=== PATIENT | female | born 1950 | race Caucasian/White ===

== ENCOUNTER 2018-10-11 12:08 | Inpatient (IN) | payer MEDICARE, BC ==
[2018-10-11] MEDS ORDERED: Ondansetron 4 MG/2 ML SDV IVPUSH ONE (12:19)
--- NOTE | 2018-10-11 12:21 | EDM.PDOC ---
ED HPI GENERAL MEDICAL PROBLEM - General Chief Complaint: Syncope Stated Complaint: [facility] Time Seen by Provider: 10/11/18 12:10 Source of Information: Reports: Patient History Limitations: Reports: No Limitations - History of Present Illness INITIAL COMMENTS - FREE TEXT/NARRATIVE: 68-year-old female presents to the ED per [place]. The history suggests that she did go out for breakfast this morning [place] [employer]. She states she didn't eat breakfast but she felt well at the time she went out. Shortly after getting home she started to feel ill like nausea and vomiting and went to the bathroom. Throwing up in the bathroom and then she collapsed to the floor. She states she went to the floor down easily. She did not get hurt. Paramedics found her quite cool clammy and diaphoretic. Blood sugar on their assessment was greater than 400 and I think they got 445. Patient states was 392 this morning. She reports she doesn't know where she put her insulin and therefore hasn't taken insulin since yesterday morning. She didn't take any insulin last night either. She does report some dysuria urgency and frequency and is prone to urinary tract infections. Denies any fever perhaps some chills. Any diarrhea. Previous abdominal surgery is that of a gallbladder or cholecystectomy and total bili hysterectomy and BSO. Paramedics mentioned that there was some possibility of a stroke. I'm not sure where this information came from. They had done a neuro exam and could find no abnormalities. I therefore did do a complete neuro exam as well and I could not find any evidence of motor weakness in any of her extremities. He doesn't seem somewhat confused and this may be due to severe hyperglycemia or other metabolic abnormality. Particularly she is not sure how much insulin she takes and when she takes it and some reason she has not taken it since yesterday. Onset: Today Onset Date: 10/11/18 Onset Time: 11:20 Duration: Minutes: Location: Reports: Abdomen (Nausea with vomiting. Is better since she vomited.) , Generalized (Generalized weakness with syncopal event at home or at least she went down to the floor. It's unclear when she truly lost consciousness.) Quality: Reports: Other Severity: Moderate (Denies any pain at this time is a little lightheaded dizzy) Improves with: Reports: None Worsens with: Reports: None Context: Denies: Activity, Exercise, Lifting, Sick Contact, Trauma, Other Associated Symptoms: Reports: Diaphoresis, Fever/Chills, Loss of Appetite, Malaise, Nausea/Vomiting. 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.) - Related Data Allergies Allergy/AdvReac Type Severity Reaction Status Date / Time No Known Allergies Allergy Verified 10/11/18 12:18 Home Meds: Home Meds Escitalopram [Lexapro] 20 mg PO DAILY 10/11/18 [History] Insulin Glargine,Hum.Rec.Anlog [Basaglar Kwikpen U-100] 0 units SUBCUT ASDIRECTED 10/11/18 [History] Nebivolol HCl [Bystolic] 5 mg PO DAILY 10/11/18 [History] Oxybutynin [Oxybutynin ER] 5 mg PO DAILY 10/11/18 [History] atorvaSTATin [Lipitor] 40 mg PO DAILY 10/11/18 [History] hydrALAZINE [Apresoline] 25 mg PO Q8H 10/11/18 [History] Past Medical History Musculoskeletal History: Reports: Osteoarthritis, Osteoporosis Endocrine/Metabolic History: Reports: Diabetes, Type II (On insulin for control which she has not taken for the last couple of days.) Social & Family History - Living Situation & Occupation Living situation: Reports: Occupation: Retired ED ROS GENERAL - Review of Systems Review Of Systems: See Below Constitutional: Reports: Chills, Malaise, Weakness, Fatigue, Decreased Appetite. Denies: Fever HEENT: Reports: Glasses Respiratory: Reports: No Symptoms Cardiovascular: Reports: No Symptoms Endocrine: Reports: Fatigue, High Glucose (Reportedly 445 according to the paramedics. Patient got 392 this morning when she checked.) GI/Abdominal: Reports: Nausea, Vomiting. Denies: Abdominal Pain, Diarrhea, Hematemesis (Vomited once prior to coming to the ED with associated development of a syncopal or near syncopal event that brought her down to the floor.), Hematochezia : Reports: Dysuria, Frequency, Urgency, Other Musculoskeletal: Reports: Joint Pain (Prone to urinary tract infections. Knees hips back and neck at times.) Skin: Reports: No Symptoms Neurological: Reports: Dizziness, Weakness, Other Psychiatric: Reports: No Symptoms Hematologic/Lymphatic: Reports: No Symptoms Immunologic: Reports: No Symptoms - Physical Exam Exam: See Below Exam Limited By: No Limitations General Appearance: Alert, WD/WN, No Apparent Distress Eye Exam: Bilateral Eye: Normal Inspection (No scleral icterus.), PERRL Throat/Mouth: Normal Inspection, Normal Lips, Normal Oropharynx Head Exam: Atraumatic, Normocephalic, Other Neck: Normal Inspection (No overt signs of head or neck trauma), Supple, Non- Tender, Full Range of Motion, Tender Lateral Respiratory/Chest: No Respiratory Distress, Lungs Clear, Normal Breath Sounds, No Accessory Muscle Use Cardiovascular: Normal Peripheral Pulses, Regular Rate, Rhythm, No Edema, No Murmur, No Rub, Other (Pressure initially is elevated 1 7271. Sats are 91% on room air however limbs are quite cool and clammy.) GI/Abdominal: Normal Bowel Sounds, Soft, Non-Tender, No Organomegaly, No Abnormal Bruit, No Mass, Pelvis Stable, Other (Has had an open cholecystectomy and total bowel hysterectomy and BSO.) Neuro Exam (Abbreviated): Alert, Oriented, CN II-XII Intact, Normal Cognition, Normal Gait, No Motor/Sensory Deficits, Other (Complete neuro exam showed no weakness in any of her extremities.) DTR: 1+: Achilles (R), Achilles (L), 2+: Bicep (R), Bicep (L), Patella (R), Patella (L) Back Exam: Normal Inspection, Full Range of Motion, Other (No signs of injuries to her). No: CVA Tenderness (L), CVA Tenderness (R) Extremities: Normal Inspection ( thoracic or lumbar spine), Normal Range of Motion, Non-Tender, No Pedal Edema Psychiatric: Flat Affect Skin Exam: Intact, Cool, Diaphoretic (Very mildly diaphoretic), Pallor (Mild pallor.) EKG INTERPRETATION EKG Date: 10/11/18 Time: 12:56 Rhythm: NSR Rate (Beats/Min): 88 [place]: Normal P-Wave: Present QRS: Other (There are Q waves in lead V1 and V2 compatible with old anteroseptal myocardial infarction. There is acute repolarization pattern in those leads. Sign of acute ischemic change. There is left ventricular hypertrophy pattern.) ST-T: Other (There is T-wave inversion in 1 and aVL which is likely reciprocal changes from the left ventricular hypertrophy. Cannot rule out ischemia in the circumflex coronary system. There is a solitary Q-wave in lead 3 alone as well.) QT: Prolonged (Is prolonged moderately.) EKG Interpretation Comments: Abnormal ECG Course - Vital Signs Last Recorded V/S: Last Vital Signs Temp 36.5 C 10/11/18 12:16 Pulse 95 10/11/18 12:16 Resp 16 10/11/18 12:16 BP 172/71 H 10/11/18 12:16 Pulse Ox 91 L 10/11/18 12:16 - Orders/Labs/Meds Orders: Active Orders 24 hr Category Date Time Status Blood Glucose Check, Bedside [] ONETIME Care 10/11/18 14:45 Active Blood Glucose Check, Bedside [] ONETIME Care 10/11/18 15:45 Active EKG Documentation Completion [] STAT Care 10/11/18 12:17 Active CULTURE BLOOD [BC] Stat Lab 10/11/18 12:39 Received CULTURE BLOOD [BC] Stat Lab 10/11/18 12:45 Received Insulin Regular, Human [HumuLIN R] 100 unit Med 10/11/18 14:30 Active Sodium Chloride 0.9% [Normal Saline] 99 ml IV ASDIRECTED Sodium Chloride 0.9% [Normal Saline] 1,000 ml Med 10/11/18 12:30 Active IV ASDIRECTED Blood Culture x2 Reflex Set [OM.PC] Stat Oth 10/11/18 12:18 Ordered Medication Orders Sodium Chloride (Normal Saline) 1,000 mls @ 500 mls/hr IV ASDIRECTED [facility] Last Admin: 10/11/18 13:03 Dose: 500 mls/hr Insulin Human Regular 100 unit (/ Sodium Chloride) 100 mls @ 4 mls/hr IV ASDIRECTED [facility] Labs: Laboratory Tests 10/11/18 10/11/18 10/11/18 Range/Units 12:39 12:39 12:39 WBC 13.59 H (3.98-10.04) K/mm3 RBC 4.33 (3.98-5.22) M/mm3 Hgb 13.2 (11.2-15.7) gm/L Hct 39.1 (34.1-44.9) % MCV 90.3 (79.4-94.8) fl MCH 30.5 (25.6-32.2) pg MCHC 33.8 (32.2-35.5) g/dl RDW Std Deviation 40.1 (36.4-46.3) fL Plt Count 302 (182-369) K/mm3 MPV 11.0 (9.4-12.3) fl Neutrophils % (Manual) 79 H (40-60) % Band Neutrophils % 0 (0-10) % Lymphocytes % (Manual) 19 L (20-40) % Atypical Lymphs % 0 % Monocytes % (Manual) 2 (2-10) % Eosinophils % (Manual) 0 L (0.7-5.8) % Basophils % (Manual) 0 L (0.1-1.2) Platelet Estimate Adequate RBC Morph Comment Normal PT 11.0 (9.5-12.1) SECONDS INR 1.01 Sodium 138 (136-145) mEq/L Potassium 3.8 (3.5-5.1) mEq/L Chloride 101 (98-107) mEq/L Carbon Dioxide 24 (21-32) mEq/L Anion Gap 16.8 H (5-15) BUN 28 H (7-18) mg/dL Creatinine 1.6 H (0.55-1.02) mg/dL Est Cr Clr Drug Dosing 33.00 mL/min Estimated GFR (MDRD) 32 (>60) mL/min BUN/Creatinine Ratio 17.5 (14-18) Glucose 446 H (80-115) mg/dL POC Glucose (80-115) mg/dL Serum Osmolality (280-300) mosm/kg Calcium 9.5 (8.5-10.1) mg/dL Magnesium 1.6 L (1.8-2.4) mg/dl Total Bilirubin 0.6 (0.2-1.0) mg/dL AST 18 (15-37) U/L ALT 23 (14-59) U/L Alkaline Phosphatase 118 H (46-116) U/L CK-MB (CK-2) 2.1 (0-3.6) ng/ml Troponin I < 0.017 (0.00-0.056) ng/mL C-Reactive Protein 0.4 (<1.0) mg/dL NT-Pro-B Natriuret Pep (0-125) pg/mL Total Protein 7.1 (6.4-8.2) g/dl Albumin 3.3 L (3.4-5.0) g/dl Globulin 3.8 gm/dL Albumin/Globulin Ratio 0.9 L (1-2) Ketones (0.0-0.3) mM 10/11/18 10/11/18 10/11/18 Range/Units 12:39 12:39 12:39 WBC (3.98-10.04) K/mm3 RBC (3.98-5.22) M/mm3 Hgb (11.2-15.7) gm/L Hct (34.1-44.9) % MCV (79.4-94.8) fl MCH (25.6-32.2) pg MCHC (32.2-35.5) g/dl RDW Std Deviation (36.4-46.3) fL Plt Count (182-369) K/mm3 MPV (9.4-12.3) fl Neutrophils % (Manual) (40-60) % Band Neutrophils % (0-10) % Lymphocytes % (Manual) (20-40) % Atypical Lymphs % % Monocytes % (Manual) (2-10) % Eosinophils % (Manual) (0.7-5.8) % Basophils % (Manual) (0.1-1.2) Platelet Estimate RBC Morph Comment PT (9.5-12.1) SECONDS INR Sodium (136-145) mEq/L Potassium (3.5-5.1) mEq/L Chloride (98-107) mEq/L Carbon Dioxide (21-32) mEq/L Anion Gap (5-15) BUN (7-18) mg/dL Creatinine (0.55-1.02) mg/dL Est Cr Clr Drug Dosing mL/min Estimated GFR (MDRD) (>60) mL/min BUN/Creatinine Ratio (14-18) Glucose (80-115) mg/dL POC Glucose (80-115) mg/dL Serum Osmolality 314 H (280-300) mosm/kg Calcium (8.5-10.1) mg/dL Magnesium (1.8-2.4) mg/dl Total Bilirubin (0.2-1.0) mg/dL AST (15-37) U/L ALT (14-59) U/L Alkaline Phosphatase (46-116) U/L CK-MB (CK-2) (0-3.6) ng/ml Troponin I (0.00-0.056) ng/mL C-Reactive Protein (<1.0) mg/dL NT-Pro-B Natriuret Pep 489 H (0-125) pg/mL Total Protein (6.4-8.2) g/dl Albumin (3.4-5.0) g/dl Globulin gm/dL Albumin/Globulin Ratio (1-2) Ketones 0.41 (0.0-0.3) mM 10/11/18 Range/Units 14:22 WBC (3.98-10.04) K/mm3 RBC (3.98-5.22) M/mm3 Hgb (11.2-15.7) gm/L Hct (34.1-44.9) % MCV (79.4-94.8) fl MCH (25.6-32.2) pg MCHC (32.2-35.5) g/dl RDW Std Deviation (36.4-46.3) fL Plt Count (182-369) K/mm3 MPV (9.4-12.3) fl Neutrophils % (Manual) (40-60) % Band Neutrophils % (0-10) % Lymphocytes % (Manual) (20-40) % Atypical Lymphs % % Monocytes % (Manual) (2-10) % Eosinophils % (Manual) (0.7-5.8) % Basophils % (Manual) (0.1-1.2) Platelet Estimate RBC Morph Comment PT (9.5-12.1) SECONDS INR Sodium (136-145) mEq/L Potassium (3.5-5.1) mEq/L Chloride (98-107) mEq/L Carbon Dioxide (21-32) mEq/L Anion Gap (5-15) BUN (7-18) mg/dL Creatinine (0.55-1.02) mg/dL Est Cr Clr Drug Dosing mL/min Estimated GFR (MDRD) (>60) mL/min BUN/Creatinine Ratio (14-18) Glucose (80-115) mg/dL POC Glucose 356 H (80-115) mg/dL Serum Osmolality (280-300) mosm/kg Calcium (8.5-10.1) mg/dL Magnesium (1.8-2.4) mg/dl Total Bilirubin (0.2-1.0) mg/dL AST (15-37) U/L ALT (14-59) U/L Alkaline Phosphatase (46-116) U/L CK-MB (CK-2) (0-3.6) ng/ml Troponin I (0.00-0.056) ng/mL C-Reactive Protein (<1.0) mg/dL NT-Pro-B Natriuret Pep (0-125) pg/mL Total Protein (6.4-8.2) g/dl Albumin (3.4-5.0) g/dl Globulin gm/dL Albumin/Globulin Ratio (1-2) Ketones (0.0-0.3) mM Meds: Medications Generic Name Dose Route Start Last Admin Trade Name Freq PRN Reason Stop Dose Admin Sodium Chloride 1,000 mls @ 500 mls/hr 10/11/18 12:30 10/11/18 13:03 Normal Saline IV 500 mls/hr ASDIRECTED KAELA Administration Insulin Human Regular 100 unit 100 mls @ 4 mls/hr 10/11/18 14:30 / Sodium Chloride IV ASDIRECTED KAELA Discontinued Medications Generic Name Dose Route Start Last Admin Trade Name Freq PRN Reason Stop Dose Admin Insulin Human Regular 100 unit 100 mls @ 335.66 mls/hr 10/11/18 13:00 / Sodium Chloride IV TITRATE KAELA Protocol 4 UNITS/KG/HR Insulin Human Regular 100 unit 100 mls @ 4 mls/hr 10/11/18 13:21 10/11/18 13: 16 / Sodium Chloride IV 4 unit/hr TITRATE KAELA 4 mls/hr Administration Protocol 4 UNIT/HR Insulin Human Regular 100 unit 100 mls @ 4 mls/hr 10/11/18 14:25 / Sodium Chloride IV TITRATE KAELA Protocol 4 UNIT/HR Ondansetron HCl 4 mg 10/11/18 12:19 10/11/18 13:00 Zofran IVPUSH 10/11/18 12:20 4 mg ONETIME ONE Administration - Radiology Interpretation Free Text/Narrative:: 68-year-old female brought to the ED per [place] [facility]. She apparently went down to the floor after vomiting in her bathroom. She did have breakfast this morning at a local restaurant and she felt fine. She's been without her insulin for diabetic treatment for the last day and a half. She did not use in the insulin last night but sure this morning was 392. Paramedics checked her blood sugar was 445. We are in the process of obtaining her medications. It appears that she had a vasovagal event which precipitated a near syncopal event. She does not appear to have gone hurt from falling to the floor. There are no obvious contusions abrasions or open wounds. Plan routine labs. ECG. Chest x-ray. Will establish what her blood sugars and see if she needs insulin drip for a period of time - Re-Assessments/Exams Free Text/Narrative Re-Assessment/Exam: 10/11/18 12:45 On questioning she states she takes 14 units of insulin glargine 3 times daily. This would be most unusual dosing pattern. We'll start an insulin infusion at 4 units an hour. Blood sugars were checked every hourly after this. The suggestion that she has some neurological symptoms is impossible depending down as to when the symptoms may have started. Apparently she was well when she went out for breakfast this morning at 9:00. At this time neurological deficits are very minimal may be due to metabolic abnormalities such as hyperglycemia and perhaps hyperosmolality. 10/11/18 13:51 Labs are finally back. White count is mildly elevated at 13.59. Differential is 79% neutrophils with no band cells. Hemoglobin is 13.2 with hematocrit of 39.1. Platelet count is 302,000. PT is 11.0 with an INR 1.01. Sodium 138 with a potassium of 3.8. Cord 101 with bicarbonate 24. And a gap is 16.8. BUN is 28. Creatinine is 1.6. GFR is 32 based stage III chronic kidney disease. Glucose is elevated at 446. Calcium is 9.5 magnesium is 1.6. Liver function is normal other than alkaline phosphatase mildly elevated at 118. CK- MB fraction is 2.1 with a troponin I of less than 0.017. C-reactive protein is 0.4. Total protein is 7.1 with an albumin fraction of 3.3. It appears that the longer she is here she does exhibit some dysarthria of her speech and did exhibit some trouble swallowing fluids. 4 is exhibiting some bulbar palsy type symptoms suggesting possible brainstem infarct/TIA. T of the brain is been completed shows no intracranial mass effect no intracranial bleeding. There is small vessel ischemic changes throughout both basal ganglia without any lacunar infarcts evident. Early no evidence of CVA is apparent on this exam. She'll require admission to the intensive care unit because of need for insulin drip. 10/11/18 14:[address] 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 I still feel she has not had any CVA. I think her mouth is terribly dry from being dehydrated from hyper glycemia. Assessment of course is advised over time. Sugars come down to 356. Therefore I will be decreased the insulin drip to 3 units an hour. Patient has not yet voided. Therefore her urinalysis is to be look for when it becomes available. 10/11/18 15:27 was brought to my attention by the nursing staff when they were trying to catheterize the patient that her bulb of and perineum are extremely excoriated and erythematous and grayish debris within the vaginal introitus. Also she has intertrigo of the lower abdominal wall. It appears that tissues are erythematous likely from stool and urine. There is not been cleaned appropriately for a lengthy period of time. Suggest a cleansing the area. I'm therefore going to have them put Camoseptine cream on the excoriated areas. I think it would be worthwhile placing Lamisil cream to the gentle area and the intertrigo areas every day at bedtime to help clear up the inflammation. 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 insulin use: with group home use Qualified Code(s): E11.65 - Type 2 diabetes mellitus with hyperglycemia CHF (congestive heart failure) Qualifiers: Heart failure type: diastolic Heart failure chronicity: acute on chronic Qualified Code(s): I50.33 - Acute on chronic diastolic (congestive) heart failure - Discharge Information *PRESCRIPTION DRUG MONITORING PROGRAM REVIEWED*: Not Applicable *COPY OF PRESCRIPTION DRUG MONITORING REPORT IN PATIENT BRYAN: Not Applicable - My Orders Last 24 Hours: My Active Orders 10/11/18 12:17 EKG Documentation Completion [RC] STAT 10/11/18 12:18 Blood Culture x2 Reflex Set [OM.PC] Stat 10/11/18 12:30 Sodium Chloride 0.9% [Normal Saline] 1,000 ml IV ASDIRECTED 10/11/18 12:39 CULTURE BLOOD [BC] Stat 10/11/18 12:45 CULTURE BLOOD [BC] Stat 10/11/18 14:30 Insulin Regular, Human [HumuLIN R] 100 unit Sodium Chloride 0.9% [Normal Saline] 99 ml IV ASDIRECTED 10/11/18 14:45 Blood Glucose Check, Bedside [RC] ONETIME 10/11/18 15:45 Blood Glucose Check, Bedside [RC] ONETIME - Assessment/Plan Last 24 Hours: My Active Orders 10/11/18 12:17 EKG Documentation Completion [RC] STAT 10/11/18 12:18 Blood Culture x2 Reflex Set [OM.PC] Stat 10/11/18 12:30 Sodium Chloride 0.9% [Normal Saline] 1,000 ml IV ASDIRECTED 10/11/18 12:39 CULTURE BLOOD [BC] Stat 10/11/18 12:45 CULTURE BLOOD [BC] Stat 10/11/18 14:30 Insulin Regular, Human [HumuLIN R] 100 unit Sodium Chloride 0.9% [Normal Saline] 99 ml IV ASDIRECTED 10/11/18 14:45 Blood Glucose Check, Bedside [RC] ONETIME 10/11/18 15:45 Blood Glucose Check, Bedside [RC] ONETIME
[2018-10-11] MEDS ORDERED: Sodium Chloride 0.9% 1,000 ML IV SCH (12:30)
--- NOTE | 2018-10-11 13:28 | CR ---
Chest: Portable view of the chest was obtained. Comparison: No previous chest x-ray. Heart size is normal. Tortuous thoracic aorta is seen. Lungs are clear with no acute parenchymal change. Bony structures are grossly intact. Impression: 1. Nothing acute is seen on portable chest x-ray. Diagnostic code #1
--- NOTE | 2018-10-11 13:39 | CT ---
Head CT Technique: Multiple axial sections through the brain were obtained. Intravenous contrast was not utilized. Comparison: No prior intracranial imaging. Findings: Ventricles along with basal cisterns and sulci over convexities are mildly prominent. Atrophy is also noted within the cerebellum. Mild diminished density is noted within the periventricular and subcortical white matter compatible with small vessel ischemic demyelination change. Similar findings are seen within portions of the basal ganglia. No other abnormal parenchymal densities are seen. No evidence of intracranial hemorrhage. No midline shift or mass effect is seen. Bone window settings were reviewed which shows no acute calvarial abnormality. Slight mucosal thickening is seen within the sphenoid and ethmoid sinuses which is felt to be incidental. Atherosclerotic calcification is noted within the carotid siphon. Impression: 1. Senescent change as noted above. 2. Minimal sinus findings which are felt to be incidental. 3. No acute intracranial abnormality is seen. If patient's symptoms warrant further evaluation, MRI could then be considered. Diagnostic code #2
[2018-10-11] MEDS ORDERED: Dextrose 5%-0.9% NaCl with KCl 1,000 ML IV SCH (17:15)
[2018-10-11] MEDS ORDERED: Ondansetron 4 MG Tab.DIS PO PRN (17:15)
[2018-10-11] MEDS ORDERED: Acetaminophen 325 MG Tab PO PRN (17:15)
[2018-10-11] MEDS ORDERED: hydrALAZINE 25 MG Tab PO SCH ×2 (18:00→22:00)
[2018-10-11] MEDS: hydrALAZINE 25 MG Tab PO SCH ×2 (18:03→21:52)
[2018-10-11] MEDS ORDERED: Magnesium Sulfate/Water 4 GM in Premix Bag 1 BAG IV ONE (18:23)
--- NOTE | 2018-10-11 18:29 | PCM.HP ---
H&P History of Present Illness - General Date of Service: 10/11/18 Admit Problem/Dx: Admission Diagnosis/Problem Admission Diagnosis/Problem Hyperglycemia - History of Present Illness Initial Comments - Free Text/Narative: 68-year-old female brought in by EMS to the emergency room because of a syncopal episode at home. Patient was going to the bathroom and when she stood up to dress herself she felt down. Patient states that she is on 30 units of Basalar a day and Humalog or other short acting insulin 14 units with each meal. She states that she has not taken her insulin for the last few meals. She went out this morning and had a pancake breakfast at [employer]. She had an episode of vomiting. When the paramedics found her she was cool and clammy and diaphoretic. Blood sugar there was over 400. She states that this morning before breakfast was 392. In the emergency room she had a CT of the head and chest x-ray. Both were noncontributory. Blood sugars were elevated in the emergency room at 446. She was given IV fluids, insulin drip was started, and patient was transferred to the ICU. In the ICU she has been cooperative. - Related Data Allergies/Adverse Reactions: Allergies Allergy/AdvReac Type Severity Reaction Status Date / Time No Known Allergies Allergy Verified 10/11/18 12:18 Home Medications: Home Meds Escitalopram [Lexapro] 20 mg PO DAILY 10/11/18 [History] Insulin Glargine,Hum.Rec.Anlog [Basaglar Kwikpen U-100] 0 units SUBCUT ASDIRECTED 10/11/18 [History] Nebivolol HCl [Bystolic] 5 mg PO DAILY 10/11/18 [History] Oxybutynin [Oxybutynin ER] 5 mg PO DAILY 10/11/18 [History] atorvaSTATin [Lipitor] 40 mg PO DAILY 10/11/18 [History] hydrALAZINE [Apresoline] 25 mg PO Q8H 10/11/18 [History] Past Medical History Cardiovascular History: Reports: High Cholesterol, Hypertension. Denies: Heart Failure Genitourinary History: Reports: UTI, Recurrent Musculoskeletal History: Reports: Osteoarthritis, Osteoporosis Neurological History: Reports: TIA Psychiatric History: Reports: Depression Endocrine/Metabolic History: Reports: Diabetes, Type II - Past Surgical History GI Surgical History: Reports: Cholecystectomy Female Surgical History: Reports: Hysterectomy Musculoskeletal Surgical History: Reports: Carpal Tunnel Social & Family History - Tobacco Use Smoking Status *Q: Never Smoker Second Hand Smoke Exposure: No - Caffeine Use Caffeine Use: Reports: Soda - Recreational Drug Use Recreational Drug Use: No - Living Situation & Occupation Living situation: Reports: Occupation: Retired H&P Review of Systems - Review of Systems: Review Of Systems: ROS reveals no pertinent complaints other than HPI. Exam - Exam Exam: See Below - Vital Signs Vital Signs: Last Vital Signs Temp 97.9 F 10/11/18 16:30 Pulse 84 10/11/18 16:30 Resp 16 10/11/18 16:30 BP 190/87 H 10/11/18 18:03 Pulse Ox 96 10/11/18 16:30 Weight: 180 lb 12.8 oz - Exam General: Alert, Oriented HEENT: Conjunctiva Clear, Mucosa Moist & [place], Posterior Pharynx Clear Neck: Supple, Trachea Midline Lungs: Clear to Auscultation, Normal Respiratory Effort Cardiovascular: Regular Rate, Regular Rhythm GI/Abdominal Exam: Normal Bowel Sounds, Soft, Non-Tender, No Distention, No Abnormal Bruit Extremities: Normal Inspection, Normal Range of Motion, Non-Tender, No Pedal Edema, Normal Capillary Refill Neuro Extensive - Mental Status: Alert, Oriented x3, Normal Mood/Affect Neuro Extensive - Motor, Sensory, Reflexes: CN II-XII Intact - Patient Data Lab Results Last 24 hrs: Laboratory Results - last 24 hr 10/11/18 10/11/18 10/11/18 Range/Units 12:39 12:39 12:39 WBC 13.59 H (3.98-10.04) K/mm3 RBC 4.33 (3.98-5.22) M/mm3 Hgb 13.2 (11.2-15.7) gm/L Hct 39.1 (34.1-44.9) % MCV 90.3 (79.4-94.8) fl MCH 30.5 (25.6-32.2) pg MCHC 33.8 (32.2-35.5) g/dl RDW Std Deviation 40.1 (36.4-46.3) fL Plt Count 302 (182-369) K/mm3 MPV 11.0 (9.4-12.3) fl Neutrophils % (Manual) 79 H (40-60) % Band Neutrophils % 0 (0-10) % Lymphocytes % (Manual) 19 L (20-40) % Atypical Lymphs % 0 % Monocytes % (Manual) 2 (2-10) % Eosinophils % (Manual) 0 L (0.7-5.8) % Basophils % (Manual) 0 L (0.1-1.2) Platelet Estimate Adequate RBC Morph Comment Normal PT 11.0 (9.5-12.1) SECONDS INR 1.01 Sodium 138 (136-145) mEq/L Potassium 3.8 (3.5-5.1) mEq/L Chloride 101 (98-107) mEq/L Carbon Dioxide 24 (21-32) mEq/L Anion Gap 16.8 H (5-15) BUN 28 H (7-18) mg/dL Creatinine 1.6 H (0.55-1.02) mg/dL Est Cr Clr Drug Dosing 33.00 mL/min Estimated GFR (MDRD) 32 (>60) mL/min BUN/Creatinine Ratio 17.5 (14-18) Glucose 446 H (80-115) mg/dL POC Glucose (80-115) mg/dL Serum Osmolality (280-300) mosm/kg Calcium 9.5 (8.5-10.1) mg/dL Magnesium 1.6 L (1.8-2.4) mg/dl Total Bilirubin 0.6 (0.2-1.0) mg/dL AST 18 (15-37) U/L ALT 23 (14-59) U/L Alkaline Phosphatase 118 H (46-116) U/L CK-MB (CK-2) 2.1 (0-3.6) ng/ml Troponin I < 0.017 (0.00-0.056) ng/mL C-Reactive Protein 0.4 (<1.0) mg/dL NT-Pro-B Natriuret Pep (0-125) pg/mL Total Protein 7.1 (6.4-8.2) g/dl Albumin 3.3 L (3.4-5.0) g/dl Globulin 3.8 gm/dL Albumin/Globulin Ratio 0.9 L (1-2) Urine Color (Yellow) Urine Appearance (Clear) Urine pH (5.0-8.0) Ur Specific [place] (1.005-1.030) Urine Protein (Negative) Urine Glucose (UA) (Negative) Urine Ketones (Negative) Urine Occult Blood (Negative) Urine Nitrite (Negative) Urine Bilirubin (Negative) Urine Urobilinogen (0.2-1.0) Ur Leukocyte Esterase (Negative) Ketones (0.0-0.3) mM 10/11/18 10/11/18 10/11/18 Range/Units 12:39 12:39 12:39 WBC (3.98-10.04) K/mm3 RBC (3.98-5.22) M/mm3 Hgb (11.2-15.7) gm/L Hct (34.1-44.9) % MCV (79.4-94.8) fl MCH (25.6-32.2) pg MCHC (32.2-35.5) g/dl RDW Std Deviation (36.4-46.3) fL Plt Count (182-369) K/mm3 MPV (9.4-12.3) fl Neutrophils % (Manual) (40-60) % Band Neutrophils % (0-10) % Lymphocytes % (Manual) (20-40) % Atypical Lymphs % % Monocytes % (Manual) (2-10) % Eosinophils % (Manual) (0.7-5.8) % Basophils % (Manual) (0.1-1.2) Platelet Estimate RBC Morph Comment PT (9.5-12.1) SECONDS INR Sodium (136-145) mEq/L Potassium (3.5-5.1) mEq/L Chloride (98-107) mEq/L Carbon Dioxide (21-32) mEq/L Anion Gap (5-15) BUN (7-18) mg/dL Creatinine (0.55-1.02) mg/dL Est Cr Clr Drug Dosing mL/min Estimated GFR (MDRD) (>60) mL/min BUN/Creatinine Ratio (14-18) Glucose (80-115) mg/dL POC Glucose (80-115) mg/dL Serum Osmolality 314 H (280-300) mosm/kg Calcium (8.5-10.1) mg/dL Magnesium (1.8-2.4) mg/dl Total Bilirubin (0.2-1.0) mg/dL AST (15-37) U/L ALT (14-59) U/L Alkaline Phosphatase (46-116) U/L CK-MB (CK-2) (0-3.6) ng/ml Troponin I (0.00-0.056) ng/mL C-Reactive Protein (<1.0) mg/dL NT-Pro-B Natriuret Pep 489 H (0-125) pg/mL Total Protein (6.4-8.2) g/dl Albumin (3.4-5.0) g/dl Globulin gm/dL Albumin/Globulin Ratio (1-2) Urine Color (Yellow) Urine Appearance (Clear) Urine pH (5.0-8.0) Ur Specific [place] (1.005-1.030) Urine Protein (Negative) Urine Glucose (UA) (Negative) Urine Ketones (Negative) Urine Occult Blood (Negative) Urine Nitrite (Negative) Urine Bilirubin (Negative) Urine Urobilinogen (0.2-1.0) Ur Leukocyte Esterase (Negative) Ketones 0.41 (0.0-0.3) mM 10/11/18 10/11/18 10/11/18 Range/Units 14:22 15:05 16:18 WBC (3.98-10.04) K/mm3 RBC (3.98-5.22) M/mm3 Hgb (11.2-15.7) gm/L Hct (34.1-44.9) % MCV (79.4-94.8) fl MCH (25.6-32.2) pg MCHC (32.2-35.5) g/dl RDW Std Deviation (36.4-46.3) fL Plt Count (182-369) K/mm3 MPV (9.4-12.3) fl Neutrophils % (Manual) (40-60) % Band Neutrophils % (0-10) % Lymphocytes % (Manual) (20-40) % Atypical Lymphs % % Monocytes % (Manual) (2-10) % Eosinophils % (Manual) (0.7-5.8) % Basophils % (Manual) (0.1-1.2) Platelet Estimate RBC Morph Comment PT (9.5-12.1) SECONDS INR Sodium (136-145) mEq/L Potassium (3.5-5.1) mEq/L Chloride (98-107) mEq/L Carbon Dioxide (21-32) mEq/L Anion Gap (5-15) BUN (7-18) mg/dL Creatinine (0.55-1.02) mg/dL Est Cr Clr Drug Dosing mL/min Estimated GFR (MDRD) (>60) mL/min BUN/Creatinine Ratio (14-18) Glucose (80-115) mg/dL POC Glucose 356 H 226 H (80-115) mg/dL Serum Osmolality (280-300) mosm/kg Calcium (8.5-10.1) mg/dL Magnesium (1.8-2.4) mg/dl Total Bilirubin (0.2-1.0) mg/dL AST (15-37) U/L ALT (14-59) U/L Alkaline Phosphatase (46-116) U/L CK-MB (CK-2) (0-3.6) ng/ml Troponin I (0.00-0.056) ng/mL C-Reactive Protein (<1.0) mg/dL NT-Pro-B Natriuret Pep (0-125) pg/mL Total Protein (6.4-8.2) g/dl Albumin (3.4-5.0) g/dl Globulin gm/dL Albumin/Globulin Ratio (1-2) Urine Color Yellow (Yellow) Urine Appearance Clear (Clear) Urine pH 5.5 (5.0-8.0) Ur Specific [place] 1.025 (1.005-1.030) Urine Protein 1+ H (Negative) Urine Glucose (UA) 2+ H (Negative) Urine Ketones Trace H (Negative) Urine Occult Blood Trace-lysed H (Negative) Urine Nitrite Positive H (Negative) Urine Bilirubin Negative (Negative) Urine Urobilinogen 1.0 (0.2-1.0) Ur Leukocyte Esterase Negative (Negative) Ketones (0.0-0.3) mM 10/11/18 10/11/18 Range/Units 17:30 17:30 WBC (3.98-10.04) K/mm3 RBC (3.98-5.22) M/mm3 Hgb (11.2-15.7) gm/L Hct (34.1-44.9) % MCV (79.4-94.8) fl MCH (25.6-32.2) pg MCHC (32.2-35.5) g/dl RDW Std Deviation (36.4-46.3) fL Plt Count (182-369) K/mm3 MPV (9.4-12.3) fl Neutrophils % (Manual) (40-60) % Band Neutrophils % (0-10) % Lymphocytes % (Manual) (20-40) % Atypical Lymphs % % Monocytes % (Manual) (2-10) % Eosinophils % (Manual) (0.7-5.8) % Basophils % (Manual) (0.1-1.2) Platelet Estimate RBC Morph Comment PT (9.5-12.1) SECONDS INR Sodium 142 (136-145) mEq/L Potassium 3.4 L (3.5-5.1) mEq/L Chloride 104 (98-107) mEq/L Carbon Dioxide 26 (21-32) mEq/L Anion Gap 15.4 H (5-15) BUN 27 H (7-18) mg/dL Creatinine 1.2 H (0.55-1.02) mg/dL Est Cr Clr Drug Dosing 44.00 mL/min Estimated GFR (MDRD) 44 (>60) mL/min BUN/Creatinine Ratio 22.5 H (14-18) Glucose 223 H (80-115) mg/dL POC Glucose 226 H (80-115) mg/dL Serum Osmolality (280-300) mosm/kg Calcium 9.1 (8.5-10.1) mg/dL Magnesium (1.8-2.4) mg/dl Total Bilirubin 0.5 (0.2-1.0) mg/dL AST 19 (15-37) U/L ALT 24 (14-59) U/L Alkaline Phosphatase 108 (46-116) U/L CK-MB (CK-2) (0-3.6) ng/ml Troponin I (0.00-0.056) ng/mL C-Reactive Protein (<1.0) mg/dL NT-Pro-B Natriuret Pep (0-125) pg/mL Total Protein 6.9 (6.4-8.2) g/dl Albumin 3.3 L (3.4-5.0) g/dl Globulin 3.6 gm/dL Albumin/Globulin Ratio 0.9 L (1-2) Urine Color (Yellow) Urine Appearance (Clear) Urine pH (5.0-8.0) Ur Specific [place] (1.005-1.030) Urine Protein (Negative) Urine Glucose (UA) (Negative) Urine Ketones (Negative) Urine Occult Blood (Negative) Urine Nitrite (Negative) Urine Bilirubin (Negative) Urine Urobilinogen (0.2-1.0) Ur Leukocyte Esterase (Negative) Ketones (0.0-0.3) mM Result Diagrams: 10/11/18 12:39 10/11/18 21:00 - Problem List (1) Hyperglycemia due to type 2 diabetes mellitus SNOMED Code(s): 678606915244494, 176849342372859 ICD Code: E11.65 - TYPE 2 DIABETES MELLITUS WITH HYPERGLYCEMIA Status: Acute Current Visit: Yes Qualifiers: Diabetes mellitus termite exterminator insulin use: with termite exterminator use Qualified Code( s): E11.65 - Type 2 diabetes mellitus with hyperglycemia; Z79.4 - halfway ( current) use of insulin (2) Metabolic acidosis due to diabetes mellitus SNOMED Code(s): 560477729 ICD Code: E11.69 - TYPE 2 DIABETES MELLITUS WITH OTHER SPECIFIED COMPLICATION ; E87.2 - ACIDOSIS Status: Acute Current Visit: Yes (3) Vasovagal syncope SNOMED Code(s): 149694360 ICD Code: R55 - SYNCOPE AND COLLAPSE Status: Acute Current Visit: Yes Problem List Initiated/Reviewed/Updated: Yes Orders Last 24hrs: Active Orders 24 hr Category Date Time Status Admission Status [Patient Status] [ADT] Routine ADT 10/11/18 14:37 Active Antiembolic Devices [RC] PER UNIT ROUTINE Care 10/11/18 17:18 Active Bedrest Bathroom Privileges [RC] ASDIRECTED Care 10/11/18 17:15 Active Blood Glucose Check, Bedside [RC] Q1HR Care 10/11/18 17:20 Active Height and Weight [RC] DAILY Care 10/11/18 17:15 Active Insert Christian Catheter [Insert Urinary Catheter] [OM.PC] Care 10/11/18 15:05 Ordered Stat Intake and Output [RC] Q12H Care 10/11/18 17:16 Active Oxygen Therapy [RC] PRN Care 10/11/18 17:15 Active Up With Assistance [RC] ASDIRECTED Care 10/11/18 17:15 Active Urinary Catheter Assessment [RC] ASDIRECTED Care 10/11/18 15:05 Active VTE/DVT Education [RC] PER UNIT ROUTINE Care 10/11/18 17:15 Active Vital Signs [RC] Q4H Care 10/11/18 17:15 Active PT Evaluation and Treatment [CONS] Routine Cons 10/11/18 17:15 Active Nothing per Oral Now Diet [DIET] Diet 10/11/18 Dinner Active BASIC METABOLIC PANEL,BMP [CHEM] Timed Lab 10/11/18 21:00 Ordered CBC WITH AUTO DIFF [HEME] AM Lab 10/12/18 05:11 Ordered CULTURE BLOOD [BC] Stat Lab 10/11/18 12:39 Received CULTURE BLOOD [BC] Stat Lab 10/11/18 12:45 Received MAGNESIUM [CHEM] AM Lab 10/12/18 05:11 Ordered Acetaminophen [Tylenol] Med 10/11/18 17:15 Active 650 mg PO Q4H PRN Carvedilol [Coreg] Med 10/12/18 09:00 Active 3.125 mg PO BID Dextrose 5%-0.9% NaCl with KCl [D5 NS with 20 mEq KCl] Med 10/11/18 17:15 Active 1,000 ml IV ASDIRECTED Escitalopram Med 10/12/18 09:00 Pending 20 mg PO DAILY Insulin Regular, Human [HumuLIN R] 100 unit Med 10/11/18 14:30 Active Sodium Chloride 0.9% [Normal Saline] 99 ml IV ASDIRECTED Magnesium Sulfate/Water [Magnesium Sulfate 4 GM in Med 10/11/18 18:23 Ordered Water 50 ML] 4 gm Premix Bag 1 bag IV ONETIME Ondansetron [Zofran ODT] Med 10/11/18 17:15 Active 4 mg PO Q4H PRN Rosuvastatin [Crestor] Med 10/12/18 09:00 Active 10 mg PO DAILY hydrALAZINE [Apresoline] Med 10/11/18 18:00 Active 25 mg PO Q8HR Blood Culture x2 Reflex Set [OM.PC] Stat Oth 10/11/18 12:18 Ordered Sequential Compression Device [OM.PC] Per Unit Routine Oth 10/11/18 17:16 Ordered Resuscitation Status Routine Resus Stat 10/11/18 17:15 Ordered Medication Orders Acetaminophen (Tylenol) 650 mg PO Q4H PRN PRN Reason: Pain (Mild 1-3)/fever Carvedilol (Coreg) 3.125 mg PO BID [facility] Hydralazine HCl (Apresoline) 25 mg PO Q8HR [facility] Last Admin: 10/11/18 18:03 Dose: 25 mg Insulin Human Regular 100 unit (/ Sodium Chloride) 100 mls @ 4 mls/hr IV ASDIRECTED [facility] Potassium Chloride/Dextrose/Sod Cl (D5 Ns With 20 Meq Kcl) 1,000 mls @ 150 mls/ hr IV ASDIRECTED [facility] Last Admin: 10/11/18 17:24 Dose: 150 mls/hr Magnesium Sulfate 4 gm/ Premix 50 mls @ 12.5 mls/hr IV ONETIME ONE Stop: 10/11/18 22:22 Non-Formulary Medication (Escitalopram) 20 mg PO DAILY [facility] Ondansetron HCl (Zofran Odt) 4 mg PO Q4H PRN PRN Reason: nausea, able to take PO Rosuvastatin Calcium (Crestor) 10 mg PO DAILY [facility] Assessment/Plan Comment:: Type 2 diabetes with hyperglycemia * Patient was started on insulin drip and when blood sugars reached the low 200s she was started on D5 normal saline. Patient had a closure of her anion gap within 4 hours. * Patient be switched back over to her long acting insulin, but at half dose for tonight. She will be given Lantus 15 units tonight * Continue monitoring blood sugars closely every 2 hours for at least 4 hours. * Start mealtime insulin at a lower dose of 7 units every before meals * Start medium dose sliding scale insulin. * Check hemoglobin A1c, lipid panel, CMP in the morning. Metabolic acidosis * Resolved with insulin drip and D5 normal saline. * Recheck CMP in the morning. Hypertension * Patient had a significantly elevated blood pressure. I am not sure that she received her medications today although she is sure she did. * Patient was given her home hydralazine 25 mg by mouth. * We do not have by systolic so we gave her Coreg 3.125 twice a day. * If blood pressure is over 200 tonight she will get captopril 6.25. * Recheck blood pressure in the morning. Acute kidney injury * Creatinine decreased from 1.6-1.1 with IV fluids. * Recheck metabolic panel in the morning. Chronic medical problems: Depression, hyperlipidemia, overactive bladder Discharge likely tomorrow
[2018-10-11] MEDS ORDERED: Potassium Chloride 20 MEQ Tab.ER PO ONE (18:43)
[2018-10-11] MEDS: Carvedilol 3.125 MG Tab PO SCH (18:49)
[2018-10-11] MEDS ORDERED: 50% Dextrose in Water 50 ML Syringe IVPUSH PRN (21:33)
[2018-10-11] MEDS ORDERED: Insulin Glarg,Human.Rec.Analog 100 UNIT/ML ML SUBCUT SCH (21:45)
[2018-10-11] MEDS: Insulin Lispro 100 Units/ML 3 ML Vial SUBCUT SCH (22:54)
[2018-10-12] MEDS: hydrALAZINE 25 MG Tab PO SCH (05:52)
[2018-10-12] MEDS ORDERED: Insulin Lispro 100 Units/ML 3 ML Vial SUBCUT ONE (07:28)
[2018-10-12 07:29] LABS: HEMOGLOBIN A1C 10.6 % (4.50-6.20)
[2018-10-12] MEDS: Insulin Lispro 100 Units/ML 3 ML Vial SUBCUT SCH ×2 (07:29→11:26)
[2018-10-12] MEDS: Carvedilol 3.125 MG Tab PO SCH (08:00)
[2018-10-12] MEDS ORDERED: Citalopram 20 MG Tab PO SCH (09:00)
[2018-10-12] MEDS ORDERED: Carvedilol 3.125 MG Tab PO SCH (09:00)
[2018-10-12] MEDS ORDERED: Rosuvastatin 10 MG Tab PO SCH (09:00)
--- NOTE | 2018-10-12 11:27 | PCM.DCSUM1 ---
Discharge Summary - Hospital Course HPI Initial Comments: 68-year-old female brought in by EMS to the emergency room because of a syncopal episode at home. Patient was going to the bathroom and when she stood up to dress herself she felt down. Patient states that she is on 30 units of Basalar a day and Humalog or other short acting insulin 14 units with each meal. She states that she has not taken her insulin for the last few meals. She went out this morning and had a pancake breakfast at [employer]. She had an episode of vomiting. When the paramedics found her she was cool and clammy and diaphoretic. Blood sugar there was over 400. She states that this morning before breakfast was 392. In the emergency room she had a CT of the head and chest x-ray. Both were noncontributory. Blood sugars were elevated in the emergency room at 446. She was given IV fluids, insulin drip was started, and patient was transferred to the ICU. Brief History: Patient was weaned off of her insulin drip and switched to basal bolus. She had an uneventful evening and is referred discharge. Diagnosis: Stroke: No - Discharge Data Discharge Date: 10/12/18 Discharge Disposition: Home, Self-Care 01 Condition: Good - Discharge Diagnosis/Problem(s) (1) Hyperglycemia due to type 2 diabetes mellitus SNOMED Code(s): 845782063543792, 999159300586193 ICD Code: E11.65 - TYPE 2 DIABETES MELLITUS WITH HYPERGLYCEMIA Status: Acute Current Visit: Yes Qualifiers: Diabetes mellitus jail insulin use: with jail use Qualified Code( s): E11.65 - Type 2 diabetes mellitus with hyperglycemia; Z79.4 - assisted ( current) use of insulin (2) Metabolic acidosis due to diabetes mellitus SNOMED Code(s): 090885448 ICD Code: E11.69 - TYPE 2 DIABETES MELLITUS WITH OTHER SPECIFIED COMPLICATION ; E87.2 - ACIDOSIS Status: Acute Current Visit: Yes (3) Vasovagal syncope SNOMED Code(s): 669421776 ICD Code: R55 - SYNCOPE AND COLLAPSE Status: Acute Current Visit: Yes - Patient Summary/Data Consults: Consultations 10/11/18 17:15 PT Evaluation and Treatment [CONS] Routine - Patient Instructions Diet: Diabetic Diet Activity: As Tolerated Driving: Do Not Drive Showering/Bathing: May Shower Other/Special Instructions: Use four point walker for stability. - Discharge Plan *PRESCRIPTION DRUG MONITORING PROGRAM REVIEWED*: Not Applicable *COPY OF PRESCRIPTION DRUG MONITORING REPORT IN PATIENT BRYAN: Not Applicable Home Medications: Home Meds Escitalopram [Lexapro] 20 mg PO DAILY 10/11/18 [History] Insulin Glargine,Hum.Rec.Anlog [Basaglar Kwikpen U-100] 34 units SUBCUT BEDTIME 10/11/18 [History] Nebivolol HCl [Bystolic] 5 mg PO DAILY 10/11/18 [History] Oxybutynin [Oxybutynin ER] 5 mg PO DAILY 10/11/18 [History] atorvaSTATin [Lipitor] 40 mg PO DAILY 10/11/18 [History] hydrALAZINE [Apresoline] 25 mg PO Q8H 10/11/18 [History] Insulin Aspart [NovoLOG] 14 unit TIDMEALS 10/12/18 [History] Oxygen Therapy Mode: Room Air Forms: ED Department Discharge Referrals: PCP,Not In Area [Primary Care Provider] - - Discharge Summary/Plan Comment DC Time >30 min.: Yes Discharge Summary/Plan Comment: Type 2 diabetes with hyperglycemia * Patient was started on insulin drip and when blood sugars reached the low 200s she was started on D5 normal saline. Patient had a closure of her anion gap within 4 hours. * Patient switched back over to her basal bolus insulin. Metabolic acidosis * Resolved with insulin drip and D5 normal saline. * Recheck CMP in the morning. Hypertension * Patient had a significantly elevated blood pressure. I am not sure that she received her medications as an outpatient although she is sure she did. * She'll be discharged on her home medications. Acute kidney injury * Creatinine decreased from 1.6-1.1 with IV fluids. Chronic medical problems: Depression, hyperlipidemia, overactive bladder Patient should follow-up with her primary care provider in 7-10 days. - General Info Date of Service: 10/12/18 Admission Dx/Problem (Free Text: Admission Diagnosis/Problem Admission Diagnosis/Problem Hyperglycemia Subjective Update: Patient without pain. Uneventful evening. Discharge today. - Review of Systems General: Reports: No Symptoms HEENT: Reports: No Symptoms Pulmonary: Reports: No Symptoms Cardiovascular: Reports: No Symptoms Gastrointestinal: Reports: No Symptoms - Patient Data Vitals - Most Recent: Last Vital Signs Temp 97.6 F 10/12/18 07:47 Pulse 76 10/12/18 08:00 Resp 18 10/12/18 07:47 BP 181/78 H 10/12/18 08:55 Pulse Ox 96 10/12/18 07:47 Weight - Most Recent: 180 lb 12.8 oz I&O - Last 24 hours: Intake & Output 10/11/18 10/12/18 10/12/18 22:59 06:59 14:59 Intake Total 60 Output Total 450 Balance -450 60 Lab Results - Last 24 hrs: Laboratory Results - last 24 hr 10/11/18 10/11/18 10/11/18 Range/Units 12:39 12:39 12:39 WBC 13.59 H (3.98-10.04) K/mm3 RBC 4.33 (3.98-5.22) M/mm3 Hgb 13.2 (11.2-15.7) gm/L Hct 39.1 (34.1-44.9) % MCV 90.3 (79.4-94.8) fl MCH 30.5 (25.6-32.2) pg MCHC 33.8 (32.2-35.5) g/dl RDW Std Deviation 40.1 (36.4-46.3) fL Plt Count 302 (182-369) K/mm3 MPV 11.0 (9.4-12.3) fl Neut % (Auto) (34.0-71.1) % Lymph % (Auto) (19.3-51.7) % Slope % (Auto) (4.7-12.5) % Eos % (Auto) (0.7-5.8) Baso % (Auto) (0.1-1.2) % Neut # (Auto) (1.56-6.13) K/mm3 Lymph # (Auto) (1.18-3.74) K/mm3 Slope # (Auto) (0.24-0.36) K/mm3 Eos # (Auto) (0.04-0.36) K/mm3 Baso # (Auto) (0.01-0.08) K/mm3 Neutrophils % (Manual) 79 H (40-60) % Band Neutrophils % 0 (0-10) % Lymphocytes % (Manual) 19 L (20-40) % Atypical Lymphs % 0 % Monocytes % (Manual) 2 (2-10) % Eosinophils % (Manual) 0 L (0.7-5.8) % Basophils % (Manual) 0 L (0.1-1.2) Platelet Estimate Adequate RBC Morph Comment Normal PT 11.0 (9.5-12.1) SECONDS INR 1.01 Sodium 138 (136-145) mEq/L Potassium 3.8 (3.5-5.1) mEq/L Chloride 101 (98-107) mEq/L Carbon Dioxide 24 (21-32) mEq/L Anion Gap 16.8 H (5-15) BUN 28 H (7-18) mg/dL Creatinine 1.6 H (0.55-1.02) mg/dL Est Cr Clr Drug Dosing 33.00 mL/min Estimated GFR (MDRD) 32 (>60) mL/min BUN/Creatinine Ratio 17.5 (14-18) Glucose 446 H (80-115) mg/dL POC Glucose (80-115) mg/dL Hemoglobin A1c (4.50-6.20) % Serum Osmolality (280-300) mosm/kg Calcium 9.5 (8.5-10.1) mg/dL Magnesium 1.6 L (1.8-2.4) mg/dl Total Bilirubin 0.6 (0.2-1.0) mg/dL AST 18 (15-37) U/L ALT 23 (14-59) U/L Alkaline Phosphatase 118 H (46-116) U/L CK-MB (CK-2) 2.1 (0-3.6) ng/ml Troponin I < 0.017 (0.00-0.056) ng/mL C-Reactive Protein 0.4 (<1.0) mg/dL NT-Pro-B Natriuret Pep (0-125) pg/mL Total Protein 7.1 (6.4-8.2) g/dl Albumin 3.3 L (3.4-5.0) g/dl Globulin 3.8 gm/dL Albumin/Globulin Ratio 0.9 L (1-2) Triglycerides (<150) mg/dL Cholesterol (<200) mg/dL LDL Cholesterol Direct (<100) mg/dL HDL Cholesterol (40-59) mg/dL Urine Color (Yellow) Urine Appearance (Clear) Urine pH (5.0-8.0) Ur Specific [place] (1.005-1.030) Urine Protein (Negative) Urine Glucose (UA) (Negative) Urine Ketones (Negative) Urine Occult Blood (Negative) Urine Nitrite (Negative) Urine Bilirubin (Negative) Urine Urobilinogen (0.2-1.0) Ur Leukocyte Esterase (Negative) Ketones (0.0-0.3) mM 10/11/18 10/11/18 10/11/18 Range/Units 12:39 12:39 12:39 WBC (3.98-10.04) K/mm3 RBC (3.98-5.22) M/mm3 Hgb (11.2-15.7) gm/L Hct (34.1-44.9) % MCV (79.4-94.8) fl MCH (25.6-32.2) pg MCHC (32.2-35.5) g/dl RDW Std Deviation (36.4-46.3) fL Plt Count (182-369) K/mm3 MPV (9.4-12.3) fl Neut % (Auto) (34.0-71.1) % Lymph % (Auto) (19.3-51.7) % Slope % (Auto) (4.7-12.5) % Eos % (Auto) (0.7-5.8) Baso % (Auto) (0.1-1.2) % Neut # (Auto) (1.56-6.13) K/mm3 Lymph # (Auto) (1.18-3.74) K/mm3 Slope # (Auto) (0.24-0.36) K/mm3 Eos # (Auto) (0.04-0.36) K/mm3 Baso # (Auto) (0.01-0.08) K/mm3 Neutrophils % (Manual) (40-60) % Band Neutrophils % (0-10) % Lymphocytes % (Manual) (20-40) % Atypical Lymphs % % Monocytes % (Manual) (2-10) % Eosinophils % (Manual) (0.7-5.8) % Basophils % (Manual) (0.1-1.2) Platelet Estimate RBC Morph Comment PT (9.5-12.1) SECONDS INR Sodium (136-145) mEq/L Potassium (3.5-5.1) mEq/L Chloride (98-107) mEq/L Carbon Dioxide (21-32) mEq/L Anion Gap (5-15) BUN (7-18) mg/dL Creatinine (0.55-1.02) mg/dL Est Cr Clr Drug Dosing mL/min Estimated GFR (MDRD) (>60) mL/min BUN/Creatinine Ratio (14-18) Glucose (80-115) mg/dL POC Glucose (80-115) mg/dL Hemoglobin A1c (4.50-6.20) % Serum Osmolality 314 H (280-300) mosm/kg Calcium (8.5-10.1) mg/dL Magnesium (1.8-2.4) mg/dl Total Bilirubin (0.2-1.0) mg/dL AST (15-37) U/L ALT (14-59) U/L Alkaline Phosphatase (46-116) U/L CK-MB (CK-2) (0-3.6) ng/ml Troponin I (0.00-0.056) ng/mL C-Reactive Protein (<1.0) mg/dL NT-Pro-B Natriuret Pep 489 H (0-125) pg/mL Total Protein (6.4-8.2) g/dl Albumin (3.4-5.0) g/dl Globulin gm/dL Albumin/Globulin Ratio (1-2) Triglycerides (<150) mg/dL Cholesterol (<200) mg/dL LDL Cholesterol Direct (<100) mg/dL HDL Cholesterol (40-59) mg/dL Urine Color (Yellow) Urine Appearance (Clear) Urine pH (5.0-8.0) Ur Specific [place] (1.005-1.030) Urine Protein (Negative) Urine Glucose (UA) (Negative) Urine Ketones (Negative) Urine Occult Blood (Negative) Urine Nitrite (Negative) Urine Bilirubin (Negative) Urine Urobilinogen (0.2-1.0) Ur Leukocyte Esterase (Negative) Ketones 0.41 (0.0-0.3) mM 10/11/18 10/11/18 10/11/18 Range/Units 14:22 15:05 16:18 WBC (3.98-10.04) K/mm3 RBC (3.98-5.22) M/mm3 Hgb (11.2-15.7) gm/L Hct (34.1-44.9) % MCV (79.4-94.8) fl MCH (25.6-32.2) pg MCHC (32.2-35.5) g/dl RDW Std Deviation (36.4-46.3) fL Plt Count (182-369) K/mm3 MPV (9.4-12.3) fl Neut % (Auto) (34.0-71.1) % Lymph % (Auto) (19.3-51.7) % Slope % (Auto) (4.7-12.5) % Eos % (Auto) (0.7-5.8) Baso % (Auto) (0.1-1.2) % Neut # (Auto) (1.56-6.13) K/mm3 Lymph # (Auto) (1.18-3.74) K/mm3 Slope # (Auto) (0.24-0.36) K/mm3 Eos # (Auto) (0.04-0.36) K/mm3 Baso # (Auto) (0.01-0.08) K/mm3 Neutrophils % (Manual) (40-60) % Band Neutrophils % (0-10) % Lymphocytes % (Manual) (20-40) % Atypical Lymphs % % Monocytes % (Manual) (2-10) % Eosinophils % (Manual) (0.7-5.8) % Basophils % (Manual) (0.1-1.2) Platelet Estimate RBC Morph Comment PT (9.5-12.1) SECONDS INR Sodium (136-145) mEq/L Potassium (3.5-5.1) mEq/L Chloride (98-107) mEq/L Carbon Dioxide (21-32) mEq/L Anion Gap (5-15) BUN (7-18) mg/dL Creatinine (0.55-1.02) mg/dL Est Cr Clr Drug Dosing mL/min Estimated GFR (MDRD) (>60) mL/min BUN/Creatinine Ratio (14-18) Glucose (80-115) mg/dL POC Glucose 356 H 226 H (80-115) mg/dL Hemoglobin A1c (4.50-6.20) % Serum Osmolality (280-300) mosm/kg Calcium (8.5-10.1) mg/dL Magnesium (1.8-2.4) mg/dl Total Bilirubin (0.2-1.0) mg/dL AST (15-37) U/L ALT (14-59) U/L Alkaline Phosphatase (46-116) U/L CK-MB (CK-2) (0-3.6) ng/ml Troponin I (0.00-0.056) ng/mL C-Reactive Protein (<1.0) mg/dL NT-Pro-B Natriuret Pep (0-125) pg/mL Total Protein (6.4-8.2) g/dl Albumin (3.4-5.0) g/dl Globulin gm/dL Albumin/Globulin Ratio (1-2) Triglycerides (<150) mg/dL Cholesterol (<200) mg/dL LDL Cholesterol Direct (<100) mg/dL HDL Cholesterol (40-59) mg/dL Urine Color Yellow (Yellow) Urine Appearance Clear (Clear) Urine pH 5.5 (5.0-8.0) Ur Specific [place] 1.025 (1.005-1.030) Urine Protein 1+ H (Negative) Urine Glucose (UA) 2+ H (Negative) Urine Ketones Trace H (Negative) Urine Occult Blood Trace-lysed H (Negative) Urine Nitrite Positive H (Negative) Urine Bilirubin Negative (Negative) Urine Urobilinogen 1.0 (0.2-1.0) Ur Leukocyte Esterase Negative (Negative) Ketones (0.0-0.3) mM 10/11/18 10/11/18 10/11/18 Range/Units 17:30 17:30 18:21 WBC (3.98-10.04) K/mm3 RBC (3.98-5.22) M/mm3 Hgb (11.2-15.7) gm/L Hct (34.1-44.9) % MCV (79.4-94.8) fl MCH (25.6-32.2) pg MCHC (32.2-35.5) g/dl RDW Std Deviation (36.4-46.3) fL Plt Count (182-369) K/mm3 MPV (9.4-12.3) fl Neut % (Auto) (34.0-71.1) % Lymph % (Auto) (19.3-51.7) % Slope % (Auto) (4.7-12.5) % Eos % (Auto) (0.7-5.8) Baso % (Auto) (0.1-1.2) % Neut # (Auto) (1.56-6.13) K/mm3 Lymph # (Auto) (1.18-3.74) K/mm3 Slope # (Auto) (0.24-0.36) K/mm3 Eos # (Auto) (0.04-0.36) K/mm3 Baso # (Auto) (0.01-0.08) K/mm3 Neutrophils % (Manual) (40-60) % Band Neutrophils % (0-10) % Lymphocytes % (Manual) (20-40) % Atypical Lymphs % % Monocytes % (Manual) (2-10) % Eosinophils % (Manual) (0.7-5.8) % Basophils % (Manual) (0.1-1.2) Platelet Estimate RBC Morph Comment PT (9.5-12.1) SECONDS INR Sodium 142 (136-145) mEq/L Potassium 3.4 L (3.5-5.1) mEq/L Chloride 104 (98-107) mEq/L Carbon Dioxide 26 (21-32) mEq/L Anion Gap 15.4 H (5-15) BUN 27 H (7-18) mg/dL Creatinine 1.2 H (0.55-1.02) mg/dL Est Cr Clr Drug Dosing 44.00 mL/min Estimated GFR (MDRD) 44 (>60) mL/min BUN/Creatinine Ratio 22.5 H (14-18) Glucose 223 H (80-115) mg/dL POC Glucose 226 H 192 H (80-115) mg/dL Hemoglobin A1c (4.50-6.20) % Serum Osmolality (280-300) mosm/kg Calcium 9.1 (8.5-10.1) mg/dL Magnesium (1.8-2.4) mg/dl Total Bilirubin 0.5 (0.2-1.0) mg/dL AST 19 (15-37) U/L ALT 24 (14-59) U/L Alkaline Phosphatase 108 (46-116) U/L CK-MB (CK-2) (0-3.6) ng/ml Troponin I (0.00-0.056) ng/mL C-Reactive Protein (<1.0) mg/dL NT-Pro-B Natriuret Pep (0-125) pg/mL Total Protein 6.9 (6.4-8.2) g/dl Albumin 3.3 L (3.4-5.0) g/dl Globulin 3.6 gm/dL Albumin/Globulin Ratio 0.9 L (1-2) Triglycerides (<150) mg/dL Cholesterol (<200) mg/dL LDL Cholesterol Direct (<100) mg/dL HDL Cholesterol (40-59) mg/dL Urine Color (Yellow) Urine Appearance (Clear) Urine pH (5.0-8.0) Ur Specific [place] (1.005-1.030) Urine Protein (Negative) Urine Glucose (UA) (Negative) Urine Ketones (Negative) Urine Occult Blood (Negative) Urine Nitrite (Negative) Urine Bilirubin (Negative) Urine Urobilinogen (0.2-1.0) Ur Leukocyte Esterase (Negative) Ketones (0.0-0.3) mM 10/11/18 10/11/18 10/11/18 Range/Units 19:04 20:21 21:00 WBC (3.98-10.04) K/mm3 RBC (3.98-5.22) M/mm3 Hgb (11.2-15.7) gm/L Hct (34.1-44.9) % MCV (79.4-94.8) fl MCH (25.6-32.2) pg MCHC (32.2-35.5) g/dl RDW Std Deviation (36.4-46.3) fL Plt Count (182-369) K/mm3 MPV (9.4-12.3) fl Neut % (Auto) (34.0-71.1) % Lymph % (Auto) (19.3-51.7) % Slope % (Auto) (4.7-12.5) % Eos % (Auto) (0.7-5.8) Baso % (Auto) (0.1-1.2) % Neut # (Auto) (1.56-6.13) K/mm3 Lymph # (Auto) (1.18-3.74) K/mm3 Slope # (Auto) (0.24-0.36) K/mm3 Eos # (Auto) (0.04-0.36) K/mm3 Baso # (Auto) (0.01-0.08) K/mm3 Neutrophils % (Manual) (40-60) % Band Neutrophils % (0-10) % Lymphocytes % (Manual) (20-40) % Atypical Lymphs % % Monocytes % (Manual) (2-10) % Eosinophils % (Manual) (0.7-5.8) % Basophils % (Manual) (0.1-1.2) Platelet Estimate RBC Morph Comment PT (9.5-12.1) SECONDS INR Sodium 143 (136-145) mEq/L Potassium 3.5 (3.5-5.1) mEq/L Chloride 106 (98-107) mEq/L Carbon Dioxide 27 (21-32) mEq/L Anion Gap 13.5 (5-15) BUN 25 H (7-18) mg/dL Creatinine 1.1 H (0.55-1.02) mg/dL Est Cr Clr Drug Dosing 48.01 mL/min Estimated GFR (MDRD) 49 (>60) mL/min BUN/Creatinine Ratio 22.7 H (14-18) Glucose 227 H (80-115) mg/dL POC Glucose 209 H 239 H (80-115) mg/dL Hemoglobin A1c (4.50-6.20) % Serum Osmolality (280-300) mosm/kg Calcium 9.0 (8.5-10.1) mg/dL Magnesium (1.8-2.4) mg/dl Total Bilirubin (0.2-1.0) mg/dL AST (15-37) U/L ALT (14-59) U/L Alkaline Phosphatase (46-116) U/L CK-MB (CK-2) (0-3.6) ng/ml Troponin I (0.00-0.056) ng/mL C-Reactive Protein (<1.0) mg/dL NT-Pro-B Natriuret Pep (0-125) pg/mL Total Protein (6.4-8.2) g/dl Albumin (3.4-5.0) g/dl Globulin gm/dL Albumin/Globulin Ratio (1-2) Triglycerides (<150) mg/dL Cholesterol (<200) mg/dL LDL Cholesterol Direct (<100) mg/dL HDL Cholesterol (40-59) mg/dL Urine Color (Yellow) Urine Appearance (Clear) Urine pH (5.0-8.0) Ur Specific [place] (1.005-1.030) Urine Protein (Negative) Urine Glucose (UA) (Negative) Urine Ketones (Negative) Urine Occult Blood (Negative) Urine Nitrite (Negative) Urine Bilirubin (Negative) Urine Urobilinogen (0.2-1.0) Ur Leukocyte Esterase (Negative) Ketones (0.0-0.3) mM 10/11/18 10/12/18 10/12/18 Range/Units 22:51 01:01 05:40 WBC 7.78 (3.98-10.04) K/mm3 RBC 4.00 (3.98-5.22) M/mm3 Hgb 12.2 (11.2-15.7) gm/L Hct 36.9 (34.1-44.9) % MCV 92.3 (79.4-94.8) fl MCH 30.5 (25.6-32.2) pg MCHC 33.1 (32.2-35.5) g/dl RDW Std Deviation 41.1 (36.4-46.3) fL Plt Count 271 (182-369) K/mm3 MPV 10.6 (9.4-12.3) fl Neut % (Auto) 57.4 (34.0-71.1) % Lymph % (Auto) 33.9 (19.3-51.7) % Slope % (Auto) 6.2 (4.7-12.5) % Eos % (Auto) 2.1 (0.7-5.8) Baso % (Auto) 0.3 (0.1-1.2) % Neut # (Auto) 4.47 (1.56-6.13) K/mm3 Lymph # (Auto) 2.64 (1.18-3.74) K/mm3 Slope # (Auto) 0.48 H (0.24-0.36) K/mm3 Eos # (Auto) 0.16 (0.04-0.36) K/mm3 Baso # (Auto) 0.02 (0.01-0.08) K/mm3 Neutrophils % (Manual) (40-60) % Band Neutrophils % (0-10) % Lymphocytes % (Manual) (20-40) % Atypical Lymphs % % Monocytes % (Manual) (2-10) % Eosinophils % (Manual) (0.7-5.8) % Basophils % (Manual) (0.1-1.2) Platelet Estimate RBC Morph Comment PT (9.5-12.1) SECONDS INR Sodium (136-145) mEq/L Potassium (3.5-5.1) mEq/L Chloride (98-107) mEq/L Carbon Dioxide (21-32) mEq/L Anion Gap (5-15) BUN (7-18) mg/dL Creatinine (0.55-1.02) mg/dL Est Cr Clr Drug Dosing mL/min Estimated GFR (MDRD) (>60) mL/min BUN/Creatinine Ratio (14-18) Glucose (80-115) mg/dL POC Glucose 227 H 159 H (80-115) mg/dL Hemoglobin A1c (4.50-6.20) % Serum Osmolality (280-300) mosm/kg Calcium (8.5-10.1) mg/dL Magnesium (1.8-2.4) mg/dl Total Bilirubin (0.2-1.0) mg/dL AST (15-37) U/L ALT (14-59) U/L Alkaline Phosphatase (46-116) U/L CK-MB (CK-2) (0-3.6) ng/ml Troponin I (0.00-0.056) ng/mL C-Reactive Protein (<1.0) mg/dL NT-Pro-B Natriuret Pep (0-125) pg/mL Total Protein (6.4-8.2) g/dl Albumin (3.4-5.0) g/dl Globulin gm/dL Albumin/Globulin Ratio (1-2) Triglycerides (<150) mg/dL Cholesterol (<200) mg/dL LDL Cholesterol Direct (<100) mg/dL HDL Cholesterol (40-59) mg/dL Urine Color (Yellow) Urine Appearance (Clear) Urine pH (5.0-8.0) Ur Specific [place] (1.005-1.030) Urine Protein (Negative) Urine Glucose (UA) (Negative) Urine Ketones (Negative) Urine Occult Blood (Negative) Urine Nitrite (Negative) Urine Bilirubin (Negative) Urine Urobilinogen (0.2-1.0) Ur Leukocyte Esterase (Negative) Ketones (0.0-0.3) mM 10/12/18 10/12/18 10/12/18 Range/Units 05:40 05:40 05:43 WBC (3.98-10.04) K/mm3 RBC (3.98-5.22) M/mm3 Hgb (11.2-15.7) gm/L Hct (34.1-44.9) % MCV (79.4-94.8) fl MCH (25.6-32.2) pg MCHC (32.2-35.5) g/dl RDW Std Deviation (36.4-46.3) fL Plt Count (182-369) K/mm3 MPV (9.4-12.3) fl Neut % (Auto) (34.0-71.1) % Lymph % (Auto) (19.3-51.7) % Slope % (Auto) (4.7-12.5) % Eos % (Auto) (0.7-5.8) Baso % (Auto) (0.1-1.2) % Neut # (Auto) (1.56-6.13) K/mm3 Lymph # (Auto) (1.18-3.74) K/mm3 Slope # (Auto) (0.24-0.36) K/mm3 Eos # (Auto) (0.04-0.36) K/mm3 Baso # (Auto) (0.01-0.08) K/mm3 Neutrophils % (Manual) (40-60) % Band Neutrophils % (0-10) % Lymphocytes % (Manual) (20-40) % Atypical Lymphs % % Monocytes % (Manual) (2-10) % Eosinophils % (Manual) (0.7-5.8) % Basophils % (Manual) (0.1-1.2) Platelet Estimate RBC Morph Comment PT (9.5-12.1) SECONDS INR Sodium (136-145) mEq/L Potassium (3.5-5.1) mEq/L Chloride (98-107) mEq/L Carbon Dioxide (21-32) mEq/L Anion Gap (5-15) BUN (7-18) mg/dL Creatinine (0.55-1.02) mg/dL Est Cr Clr Drug Dosing mL/min Estimated GFR (MDRD) (>60) mL/min BUN/Creatinine Ratio (14-18) Glucose (80-115) mg/dL POC Glucose 167 H (80-115) mg/dL Hemoglobin A1c 10.60 H (4.50-6.20) % Serum Osmolality (280-300) mosm/kg Calcium (8.5-10.1) mg/dL Magnesium 2.3 (1.8-2.4) mg/dl Total Bilirubin (0.2-1.0) mg/dL AST (15-37) U/L ALT (14-59) U/L Alkaline Phosphatase (46-116) U/L CK-MB (CK-2) (0-3.6) ng/ml Troponin I (0.00-0.056) ng/mL C-Reactive Protein (<1.0) mg/dL NT-Pro-B Natriuret Pep (0-125) pg/mL Total Protein (6.4-8.2) g/dl Albumin (3.4-5.0) g/dl Globulin gm/dL Albumin/Globulin Ratio (1-2) Triglycerides 121 (<150) mg/dL Cholesterol 176 (<200) mg/dL LDL Cholesterol Direct 113 H* (<100) mg/dL HDL Cholesterol 42.0 (40-59) mg/dL Urine Color (Yellow) Urine Appearance (Clear) Urine pH (5.0-8.0) Ur Specific [place] (1.005-1.030) Urine Protein (Negative) Urine Glucose (UA) (Negative) Urine Ketones (Negative) Urine Occult Blood (Negative) Urine Nitrite (Negative) Urine Bilirubin (Negative) Urine Urobilinogen (0.2-1.0) Ur Leukocyte Esterase (Negative) Ketones (0.0-0.3) mM 10/12/18 10/12/18 Range/Units 08:37 11:20 WBC (3.98-10.04) K/mm3 RBC (3.98-5.22) M/mm3 Hgb (11.2-15.7) gm/L Hct (34.1-44.9) % MCV (79.4-94.8) fl MCH (25.6-32.2) pg MCHC (32.2-35.5) g/dl RDW Std Deviation (36.4-46.3) fL Plt Count (182-369) K/mm3 MPV (9.4-12.3) fl Neut % (Auto) (34.0-71.1) % Lymph % (Auto) (19.3-51.7) % Slope % (Auto) (4.7-12.5) % Eos % (Auto) (0.7-5.8) Baso % (Auto) (0.1-1.2) % Neut # (Auto) (1.56-6.13) K/mm3 Lymph # (Auto) (1.18-3.74) K/mm3 Slope # (Auto) (0.24-0.36) K/mm3 Eos # (Auto) (0.04-0.36) K/mm3 Baso # (Auto) (0.01-0.08) K/mm3 Neutrophils % (Manual) (40-60) % Band Neutrophils % (0-10) % Lymphocytes % (Manual) (20-40) % Atypical Lymphs % % Monocytes % (Manual) (2-10) % Eosinophils % (Manual) (0.7-5.8) % Basophils % (Manual) (0.1-1.2) Platelet Estimate RBC Morph Comment PT (9.5-12.1) SECONDS INR Sodium 142 (136-145) mEq/L Potassium 3.9 (3.5-5.1) mEq/L Chloride 108 H (98-107) mEq/L Carbon Dioxide 23 (21-32) mEq/L Anion Gap 14.9 (5-15) BUN 25 H (7-18) mg/dL Creatinine 0.9 (0.55-1.02) mg/dL Est Cr Clr Drug Dosing 58.67 mL/min Estimated GFR (MDRD) > 60 (>60) mL/min BUN/Creatinine Ratio 27.8 H (14-18) Glucose 181 H (80-115) mg/dL POC Glucose 147 H (80-115) mg/dL Hemoglobin A1c (4.50-6.20) % Serum Osmolality (280-300) mosm/kg Calcium 9.1 (8.5-10.1) mg/dL Magnesium (1.8-2.4) mg/dl Total Bilirubin 0.8 (0.2-1.0) mg/dL AST 19 (15-37) U/L ALT 24 (14-59) U/L Alkaline Phosphatase 99 (46-116) U/L CK-MB (CK-2) (0-3.6) ng/ml Troponin I (0.00-0.056) ng/mL C-Reactive Protein (<1.0) mg/dL NT-Pro-B Natriuret Pep (0-125) pg/mL Total Protein 6.8 (6.4-8.2) g/dl Albumin 3.2 L (3.4-5.0) g/dl Globulin 3.6 gm/dL Albumin/Globulin Ratio 0.9 L (1-2) Triglycerides (<150) mg/dL Cholesterol (<200) mg/dL LDL Cholesterol Direct (<100) mg/dL HDL Cholesterol (40-59) mg/dL Urine Color (Yellow) Urine Appearance (Clear) Urine pH (5.0-8.0) Ur Specific [place] (1.005-1.030) Urine Protein (Negative) Urine Glucose (UA) (Negative) Urine Ketones (Negative) Urine Occult Blood (Negative) Urine Nitrite (Negative) Urine Bilirubin (Negative) Urine Urobilinogen (0.2-1.0) Ur Leukocyte Esterase (Negative) Ketones (0.0-0.3) mM Med Orders - Current: Current Medications Acetaminophen (Tylenol) 650 mg PO Q4H PRN PRN Reason: Pain (Mild 1-3)/fever Captopril (Capoten) 6.25 mg PO Q8H [facility] Last Admin: 10/12/18 08:55 Dose: 6.25 mg Carvedilol (Coreg) 3.125 mg PO BID [facility] Last Admin: 10/12/18 08:00 Dose: 3.125 mg Citalopram Hydrobromide (Celexa) 40 mg PO DAILY [facility] Last Admin: 10/12/18 08:01 Dose: 40 mg Dextrose/Water (Dextrose 50% In Water) 50 ml IVPUSH ASDIRECTED PRN PRN Reason: Hypoglycemia Hydralazine HCl (Apresoline) 25 mg PO Q8HR [facility] Last Admin: 10/12/18 05:52 Dose: 25 mg Insulin Glargine (Lantus) 15 unit SUBCUT QPM [facility] Last Admin: 10/11/18 21:51 Dose: 15 units Insulin Human Lispro (Humalog) 0 unit SUBCUT QIDACANDBED [facility]; Protocol Last Admin: 10/12/18 07:29 Dose: Not Given Ondansetron HCl (Zofran Odt) 4 mg PO Q4H PRN PRN Reason: nausea, able to take PO Rosuvastatin Calcium (Crestor) 10 mg PO DAILY [facility] Last Admin: 10/12/18 08:01 Dose: 10 mg Discontinued Medications Captopril (Capoten) 6.25 mg PO ONETIME PRN PRN Reason: Hypertension Last Admin: 10/12/18 00:31 Dose: 6.25 mg Carvedilol (Coreg) 3.125 mg PO BID [facility] Hydralazine HCl (Apresoline) 25 mg PO Q8H [facility] Hydralazine HCl (Apresoline) 25 mg PO Q8HR [facility] Sodium Chloride (Normal Saline) 1,000 mls @ 500 mls/hr IV ASDIRECTED [facility] Last Admin: 10/11/18 13:03 Dose: 500 mls/hr Insulin Human Regular 100 unit (/ Sodium Chloride) 100 mls @ 335.66 mls/hr IV TITRATE [facility]; Protocol Insulin Human Regular 100 unit (/ Sodium Chloride) 100 mls @ 4 mls/hr IV TITRATE [facility]; Protocol Last Titration: 10/11/18 21:32 Dose: 0 unit/hr, 0 mls/hr Insulin Human Regular 100 unit (/ Sodium Chloride) 100 mls @ 4 mls/hr IV TITRATE [facility]; Protocol Insulin Human Regular 100 unit (/ Sodium Chloride) 100 mls @ 4 mls/hr IV ASDIRECTED [facility] Potassium Chloride/Dextrose/Sod Cl (D5 Ns With 20 Meq Kcl) 1,000 mls @ 150 mls/ hr IV ASDIRECTED KAELA Last Infusion: 10/11/18 21:14 Dose: 75 mls/hr Magnesium Sulfate 4 gm/ Premix 50 mls @ 12.5 mls/hr IV ONETIME ONE Stop: 10/11/18 22:22 Last Admin: 10/11/18 19:20 Dose: 12.5 mls/hr Insulin Human Lispro (Humalog) 7 unit SUBCUT ONETIME ONE Stop: 10/12/18 07:29 Last Admin: 10/12/18 08:01 Dose: 7 units Ondansetron HCl (Zofran) 4 mg IVPUSH ONETIME ONE Stop: 10/11/18 12:20 Last Admin: 10/11/18 13:00 Dose: 4 mg Potassium Chloride (Klor-Con M20) 20 meq PO ONETIME ONE Stop: 10/11/18 18:44 Last Admin: 10/11/18 18:52 Dose: 20 meq - Exam General: Reports: Alert, Oriented Neck: Reports: Supple Lungs: Reports: Clear to Auscultation, Normal Respiratory Effort Cardiovascular: Reports: Regular Rate, Regular Rhythm
== END 2018-10-12 12:30 | disposition home or self-care (01) | DRG 638 ==
LOC: JD.ED 12:08 → JD.ICU 14:37
PROVIDERS: ADMIT Family Medicine; ATTEND Family Medicine
DX: E11.65 Type 2 diabetes mellitus with hyperglycemia (principal); E87.2 Acidosis; N17.9 Acute kidney failure, unspecified; E11.69 Type 2 diabetes mellitus with other specified complication; M19.90 Unspecified osteoarthritis, unspecified site; E86.0 Dehydration; E78.00 Pure hypercholesterolemia, unspecified; I10 Essential (primary) hypertension; F32.9 Major depressive disorder, single episode, unspecified; E78.5 Hyperlipidemia, unspecified; N32.81 Overactive bladder; L30.4 Erythema intertrigo; M81.0 Age-related osteoporosis without current pathological fracture; T38.3X6A Underdosing of insulin and oral hypoglycemic [antidiabetic] drugs, initial encounter; Z91.128 Patient's intentional underdosing of medication regimen for other reason; Z91.14 Patient's other noncompliance with medication regimen; R41.0 Disorientation, unspecified; R11.2 Nausea with vomiting, unspecified; R53.1 Weakness; R50.9 Fever, unspecified; R53.81 Other malaise; R53.83 Other fatigue; R42 Dizziness and giddiness; I50.33 Acute on chronic diastolic (congestive) heart failure; R55 Syncope and collapse; R61 Generalized hyperhidrosis; R30.0 Dysuria; R39.15 Urgency of urination; R35.0 Frequency of micturition; Z90.49 Acquired absence of other specified parts of digestive tract; Z90.710 Acquired absence of both cervix and uterus; Z87.440 Personal history of urinary (tract) infections; Z79.899 Other long term (current) drug therapy; Z79.4 Long term (current) use of insulin; Z86.73 Personal history of transient ischemic attack (TIA), and cerebral infarction without residual deficits; W18.30XA Fall on same level, unspecified, initial encounter
CPT/HCPCS: 36415; 70450; 71045; 80053; 82009; 82553; 82962; 83735; 83880; 83930; 84484; 85007; 85027; 85610; 86140; 87040 ×2; 93005; 96365; 96375; 99285; J2405; J7040; 80048; 80061; 81001; 81003; 83036; 85025; 97110-GP; 97162-GP; A9270-GY; J1815-GY; J3475; J3480

== ENCOUNTER 2018-10-12 21:17 | Inpatient (IN) | payer MEDICARE, BC ==
[2018-10-12] MEDS ORDERED: Sodium Chloride 0.9% 1,000 ML IV ONE (22:13)
--- NOTE | 2018-10-12 22:16 | EDM.PDOC ---
ED HPI GENERAL MEDICAL PROBLEM - General Chief Complaint: General Stated Complaint: FELL IN BATHROOM FEELS NUMB Time Seen by Provider: 10/12/18 21:38 Source of Information: Reports: Patient, Family History Limitations: Reports: No Limitations - History of Present Illness INITIAL COMMENTS - FREE TEXT/NARRATIVE: 68 yo F visiting from [place], [place] is brought in by son after just being discharged from ICU this AM for hyperglycemia and syncopal episode returns for new onset R leg weakness and fall at around 20:30 this evening. She states she was feeling better after being d/c'd from the ICU, but then had this sudden onset of weakness. Pt states she was discharged with a walker and was using it when getting up from the toilet when her "legs gave out" and she fell and hit the side of the tub with her R hip. She denies any LOC or hitting her head. She currently denies any pain, but does c/o R leg weakness. She also apparently had an episode of R arm weakness earlier today when trying to eat, and was unable to get the fork to her mouth per son. He has noticed this happening for the past week. She said she has had similar symptoms in the past, but "not as bad as this". She denies any GONZALEZ, changes in vision, dizziness, current upper extremity weakness, or any other symptoms at this time. She was worked up for CVA just yesterday in the ED which was negative. Neuro exam here shows nothing acute. She is an uncontrolled diabetic. A1C checked in hospital was 10.6. Blood sugar is currently 307. Pt states she did take her insulin today. Does not seem to be on a diabetic diet at home, as she had [employer] Narayanan after discharge, Chicken with stuffing, noodles, and pineapple for dinner. She lives alone at home. Her PCP is out of the area as she is from [place], [place] and is visiting for the holiday. - Related Data Allergies Allergy/AdvReac Type Severity Reaction Status Date / Time No Known Allergies Allergy Verified 10/12/18 21:34 Home Meds: Home Meds Escitalopram [Lexapro] 20 mg PO DAILY 10/11/18 [History] Insulin Glargine,Hum.Rec.Anlog [Basaglar Kwikpen U-100] 38 units SUBCUT BEDTIME 10/11/18 [History] Oxybutynin [Oxybutynin ER] 5 mg PO DAILY 10/11/18 [History] atorvaSTATin [Lipitor] 40 mg PO DAILY 10/11/18 [History] hydrALAZINE [Apresoline] 25 mg PO Q8H 10/11/18 [History] Aspirin [Halfprin] 81 mg PO DAILY 10/12/18 [History] Benazepril HCl [Lotensin] 40 mg PO DAILY 10/12/18 [History] Cholecalciferol (Vitamin D3) [Vitamin D3] 1,000 unit PO DAILY 10/12/18 [History] Felodipine [Felodipine ER] 10 mg PO DAILY 10/12/18 [History] Glimepiride 8 mg PO ACBREAKFAST 10/12/18 [History] Insulin Aspart [NovoLOG] 14 unit TIDMEALS 10/12/18 [History] Potassium Chloride [Klor-Con M20] 20 meq PO BID 10/12/18 [History] hydroCHLOROthiazide [Hydrochlorothiazide] 12.5 mg PO DAILY 10/12/18 [History] metFORMIN [Glucophage] 850 mg PO BIDMEALS 10/12/18 [History] Past Medical History - Past Health History Medical/Surgical History: Denies Medical/Surgical History Cardiovascular History: Reports: High Cholesterol, Hypertension Genitourinary History: Reports: UTI, Recurrent [employer] History: Reports: Musculoskeletal History: Reports: Osteoarthritis, Osteoporosis Neurological History: Reports: TIA Psychiatric History: Reports: Depression Endocrine/Metabolic History: Reports: Diabetes, Type II - Past Surgical History GI Surgical History: Reports: Cholecystectomy Female Surgical History: Reports: Hysterectomy Musculoskeletal Surgical History: Reports: Carpal Tunnel Social & Family History - Tobacco Use Smoking Status *Q: Never Smoker - Caffeine Use Caffeine Use: Reports: None - Recreational Drug Use Recreational Drug Use: No - Living Situation & Occupation Living situation: Reports: Occupation: Retired ED ROS GENERAL - Review of Systems Review Of Systems: ROS reveals no pertinent complaints other than HPI. ED EXAM, GENERAL - Physical Exam Exam: See Below Exam Limited By: No Limitations General Appearance: Alert, WD/WN, No Apparent Distress Eye Exam: Bilateral Eye: EOMI, Normal Inspection, PERRL Ears: Normal External Exam, Hearing Grossly Normal Head: Atraumatic, Normocephalic Neck: Normal Inspection, Supple, Non-Tender, Full Range of Motion Respiratory/Chest: No Respiratory Distress, Lungs Clear, Normal Breath Sounds, No Accessory Muscle Use, Chest Non-Tender Cardiovascular: Normal Peripheral Pulses, Regular Rate, Rhythm, No Edema, No Gallop, No JVD, No Murmur, No Rub Peripheral Pulses: 2+: Posterior Tibial (L), Posterior Tibial (R), Dorsalis Pedis (L), Dorsalis Pedis (R) GI/Abdominal: Normal Bowel Sounds, Soft, Non-Tender, No Organomegaly, No Distention, No Abnormal Bruit, No Mass Back Exam: Normal Inspection Extremities: Normal Inspection, Normal Range of Motion, Non-Tender, Normal Capillary Refill, No Pedal Edema Neurological: Alert, Oriented, CN II-XII Intact, No Motor/Sensory Deficits, Slow to Respond, Abnormal Gait (pt unable to walk d/t "weakness", now has walker at home), Other (strength equal bilaterally in all extremities) Psychiatric: Flat Affect Skin Exam: Warm, Dry, Intact, Normal Color, No Rash Course - Vital Signs Last Recorded V/S: Last Vital Signs Temp 97.4 F 10/12/18 21:34 Pulse 88 10/12/18 21:34 Resp 18 10/12/18 21:34 BP 180/110 H 10/12/18 23:06 Pulse Ox 96 10/12/18 21:34 - Orders/Labs/Meds Orders: Active Orders 24 hr Category Date Time Status Admission Status [Patient Status] [ADT] Routine ADT 10/12/18 23:08 Active Hip Min 2V or 3V w Pelvis Rt [CR] Stat Exams 10/12/18 22:13 Taken C-REACTIVE PROTEIN [CHEM] Stat Lab 10/12/18 22:24 Results CMP [COMPREHENSIVE METABOLIC PN,CMP] [CHEM] Stat Lab 10/12/18 22:24 Results MAGNESIUM [CHEM] Stat Lab 10/12/18 22:24 Results OSMOLALITY,SERUM [CHEM] Stat Lab 10/12/18 22:24 Results UA W/MICROSCOPIC [URIN] Stat Lab 10/12/18 22:11 Ordered Labs: Laboratory Tests 10/12/18 10/12/18 10/12/18 Range/Units 21:33 22:24 22:24 WBC (3.98-10.04) K/mm3 RBC (3.98-5.22) M/mm3 Hgb (11.2-15.7) gm/L Hct (34.1-44.9) % MCV (79.4-94.8) fl MCH (25.6-32.2) pg MCHC (32.2-35.5) g/dl RDW Std Deviation (36.4-46.3) fL Plt Count (182-369) K/mm3 MPV (9.4-12.3) fl Neut % (Auto) (34.0-71.1) % Lymph % (Auto) (19.3-51.7) % [place] % (Auto) (4.7-12.5) % Eos % (Auto) (0.7-5.8) Baso % (Auto) (0.1-1.2) % Neut # (Auto) (1.56-6.13) K/mm3 Lymph # (Auto) (1.18-3.74) K/mm3 [place] # (Auto) (0.24-0.36) K/mm3 Eos # (Auto) (0.04-0.36) K/mm3 Baso # (Auto) (0.01-0.08) K/mm3 VBG pH (7.30-7.40) Sodium 139 (136-145) mEq/L Potassium 3.9 (3.5-5.1) mEq/L Chloride 105 (98-107) mEq/L Carbon Dioxide 25 (21-32) mEq/L Anion Gap 12.9 (5-15) BUN 29 H (7-18) mg/dL Creatinine 1.1 H (0.55-1.02) mg/dL Est Cr Clr Drug Dosing 48.01 mL/min Estimated GFR (MDRD) 49 (>60) mL/min BUN/Creatinine Ratio 26.4 H (14-18) Glucose 300 H (80-115) mg/dL POC Glucose 307 H (80-115) mg/dL Calcium 9.4 (8.5-10.1) mg/dL Magnesium 2.0 (1.8-2.4) mg/dl Total Bilirubin 0.6 (0.2-1.0) mg/dL AST 21 (15-37) U/L ALT 25 (14-59) U/L Alkaline Phosphatase 108 (46-116) U/L C-Reactive Protein 0.4 (<1.0) mg/dL Total Protein 7.1 (6.4-8.2) g/dl Albumin 3.3 L (3.4-5.0) g/dl Globulin 3.8 gm/dL Albumin/Globulin Ratio 0.9 L (1-2) Ketones 1.4 (0.0-0.3) mM 10/12/18 10/12/18 Range/Units 22:24 22:28 WBC 8.22 (3.98-10.04) K/mm3 RBC 4.29 (3.98-5.22) M/mm3 Hgb 13.1 (11.2-15.7) gm/L Hct 39.8 (34.1-44.9) % MCV 92.8 (79.4-94.8) fl MCH 30.5 (25.6-32.2) pg MCHC 32.9 (32.2-35.5) g/dl RDW Std Deviation 41.9 (36.4-46.3) fL Plt Count 269 (182-369) K/mm3 MPV 10.3 (9.4-12.3) fl Neut % (Auto) 64.8 (34.0-71.1) % Lymph % (Auto) 27.7 (19.3-51.7) % [place] % (Auto) 5.5 (4.7-12.5) % Eos % (Auto) 1.7 (0.7-5.8) Baso % (Auto) 0.2 (0.1-1.2) % Neut # (Auto) 5.32 (1.56-6.13) K/mm3 Lymph # (Auto) 2.28 (1.18-3.74) K/mm3 [place] # (Auto) 0.45 H (0.24-0.36) K/mm3 Eos # (Auto) 0.14 (0.04-0.36) K/mm3 Baso # (Auto) 0.02 (0.01-0.08) K/mm3 VBG pH 7.37 (7.30-7.40) Sodium (136-145) mEq/L Potassium (3.5-5.1) mEq/L Chloride (98-107) mEq/L Carbon Dioxide (21-32) mEq/L Anion Gap (5-15) BUN (7-18) mg/dL Creatinine (0.55-1.02) mg/dL Est Cr Clr Drug Dosing mL/min Estimated GFR (MDRD) (>60) mL/min BUN/Creatinine Ratio (14-18) Glucose (80-115) mg/dL POC Glucose (80-115) mg/dL Calcium (8.5-10.1) mg/dL Magnesium (1.8-2.4) mg/dl Total Bilirubin (0.2-1.0) mg/dL AST (15-37) U/L ALT (14-59) U/L Alkaline Phosphatase (46-116) U/L C-Reactive Protein (<1.0) mg/dL Total Protein (6.4-8.2) g/dl Albumin (3.4-5.0) g/dl Globulin gm/dL Albumin/Globulin Ratio (1-2) Ketones (0.0-0.3) mM Meds: Medications Discontinued Medications Generic Name Dose Route Start Last Admin Trade Name Gelacioq PRN Reason Stop Dose Admin Clonidine HCl 0.2 mg 10/12/18 22:58 10/12/18 23:06 Catapres PO 10/12/18 22:59 0.2 mg ONETIME ONE Administration Sodium Chloride 1,000 mls @ 999 mls/hr 10/12/18 22:13 10/12/18 22:25 Normal Saline IV 10/12/18 23:13 999 mls/hr ONETIME ONE Administration - Re-Assessments/Exams Free Text/Narrative Re-Assessment/Exam: 10/12/18 22:14 CBC, CMP, CRP, Magnesium, UA, Serum Osmolality, Serum Ketones, Venous pH Xray of R hip 10/12/18 22:43 CBC WNL Venous pH 7.37 Xray of R hip reviewed by Dr. Song and myself- nothing acute seen, osteoarthritis. 10/12/18 22:59 Automated BP is reading 249/95. Nursing states the manual BP is 180/110. Will give 0.2 Catapres. CMP, CRP, Magnesium, UA, Serum Osmolality, Serum Ketones pending 10/12/18 23:[address] Do. He has accepted the patient into Med Surg with Telemetry for R leg weakness and probable SNF placement. He would like her to be started on 15 Lantus daily and 7 Humalog w/ meals. Departure - Departure Time of Disposition: 23:05 Disposition: Admitted As Inpatient 64 Clinical Impression: Hyperglycemia, Right leg weakness - Discharge Information *PRESCRIPTION DRUG MONITORING PROGRAM REVIEWED*: Not Applicable *COPY OF PRESCRIPTION DRUG MONITORING REPORT IN PATIENT BRYAN: Not Applicable Referrals: PCP,Not In Area [Primary Care Provider] - Forms: ED Department Discharge - My Orders Last 24 Hours: My Active Orders 10/12/18 22:11 UA W/MICROSCOPIC [URIN] Stat 10/12/18 22:13 Hip Min 2V or 3V w Pelvis Rt [CR] Stat 10/12/18 22:24 C-REACTIVE PROTEIN [CHEM] Stat CMP [COMPREHENSIVE METABOLIC PN,CMP] [CHEM] Stat MAGNESIUM [CHEM] Stat OSMOLALITY,SERUM [CHEM] Stat 10/12/18 23:08 Admission Status [Patient Status] [ADT] Routine - Assessment/Plan Last 24 Hours: My Active Orders 10/12/18 22:11 UA W/MICROSCOPIC [URIN] Stat 10/12/18 22:13 Hip Min 2V or 3V w Pelvis Rt [CR] Stat 10/12/18 22:24 C-REACTIVE PROTEIN [CHEM] Stat CMP [COMPREHENSIVE METABOLIC PN,CMP] [CHEM] Stat MAGNESIUM [CHEM] Stat OSMOLALITY,SERUM [CHEM] Stat 10/12/18 23:08 Admission Status [Patient Status] [ADT] Routine
[2018-10-12] MEDS ORDERED: cloNIDine 0.1 MG Tab PO ONE (22:58)
[2018-10-13] MEDS: Cholecalciferol (Vitamin D3) 1,000 Unit Tab PO SCH (08:23)
[2018-10-13] MEDS: Oxybutynin 5 MG Tab.ER PO SCH (08:23)
[2018-10-13] MEDS: Insulin Glarg,Human.Rec.Analog 100 UNIT/ML ML SUBCUT SCH (08:24)
[2018-10-13] MEDS: Rosuvastatin 10 MG Tab PO SCH (08:24)
[2018-10-13] MEDS: hydrALAZINE 25 MG Tab PO SCH ×4 (08:24→23:50)
[2018-10-13] MEDS: amLODIPine 10 MG Tab PO SCH (08:24)
[2018-10-13] MEDS: Hydrochlorothiazide 12.5 MG Cap PO SCH (08:24)
[2018-10-13] MEDS: Citalopram 20 MG Tab PO SCH (08:24)
[2018-10-13] MEDS: Potassium Chloride 20 MEQ Tab.ER PO SCH ×2 (08:24→20:26)
[2018-10-13] MEDS: Insulin Lispro 100 Units/ML 3 ML Vial SUBCUT SCH ×6 (08:25→23:18)
[2018-10-13] MEDS ORDERED: Aspirin 81 MG Tab.EC PO SCH (09:00)
[2018-10-13] MEDS ORDERED: Magnesium Sulfate/Water 2 GM in Premix Bag 1 BAG IV ONE (09:21)
--- NOTE | 2018-10-13 16:26 | PCM.HP ---
H&P History of Present Illness - General Date of Service: 10/13/18 Admit Problem/Dx: Admission Diagnosis/Problem Admission Diagnosis/Problem Weakness Source of Information: Patient, Old Records, Provider - History of Present Illness Initial Comments - Free Text/Narative: This 68-year-old female who was discharged yesterday was brought back to the emergency room last night after sustaining a fall on her right side of the bathroom. Patient was admitted after falling 2 days ago and had hyperglycemia with anion gap metabolic acidosis. Patient was admitted to the ICU where she had correction of her acidosis and hyperglycemia. She was discharged home with a walker per PT because of the right-sided weakness. In the emergency room on Sunday she had a CT of the scan of the head and ruled out for stroke. Discussing it in more detail with the son today it appears that she wasn't quite herself on . She had some more slurred speech and he states that his siblings noted it on the phone. She seemed more confused and tired. On Sunday when she fell and was brought into the emergency room there was a history of her not taking her blood pressure medications and not taking her insulin. Her blood sugars were over 400 and she had missed several doses of her insulin. In hindsight, it appears that she had some right-sided facial drooping at that time. He was generally felt that this was normal for her, and that her dysarthria was because of dry mouth. Now patient appears much more consistent with a CVA. We did get a new med list and she was off of at least 3 of her 5 blood pressure medications. While she was in the ICU one and 2 days ago her blood pressures were constantly in the 180s to 190s. Patient denies any headache , fever, chills, shortness of breath, numbness, or tingling. She does state that she feels weak on her right hand and leg. Onset of Symptoms: Reports: Gradual - Related Data Allergies/Adverse Reactions: Allergies Allergy/AdvReac Type Severity Reaction Status Date / Time No Known Allergies Allergy Verified 10/12/18 21:34 Home Medications: Home Meds Escitalopram [Lexapro] 20 mg PO DAILY 10/11/18 [History] Insulin Glargine,Hum.Rec.Anlog [Basaglar Adamikpen U-100] 34 units SUBCUT BEDTIME 10/11/18 [History] Oxybutynin [Oxybutynin ER] 5 mg PO DAILY 10/11/18 [History] atorvaSTATin [Lipitor] 40 mg PO DAILY 10/11/18 [History] hydrALAZINE [Apresoline] 25 mg PO Q8H 10/11/18 [History] Aspirin [Halfprin] 81 mg PO DAILY 10/12/18 [History] Benazepril HCl [Lotensin] 40 mg PO DAILY 10/12/18 [History] Cholecalciferol (Vitamin D3) [Vitamin D3] 1,000 unit PO DAILY 10/12/18 [History] Felodipine [Felodipine ER] 10 mg PO DAILY 10/12/18 [History] Glimepiride 8 mg PO ACBREAKFAST 10/12/18 [History] Insulin Aspart [NovoLOG] 14 unit TIDMEALS 10/12/18 [History] Potassium Chloride [Klor-Con M20] 20 meq PO BID 10/12/18 [History] hydroCHLOROthiazide [Hydrochlorothiazide] 12.5 mg PO DAILY 10/12/18 [History] metFORMIN [Glucophage] 850 mg PO BIDMEALS 10/12/18 [History] Past Medical History - Past Health History Medical/Surgical History: Denies Medical/Surgical History Cardiovascular History: Reports: High Cholesterol, Hypertension Genitourinary History: Reports: UTI, 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: Musculoskeletal History: Reports: Osteoarthritis, Osteoporosis Neurological History: Reports: TIA Psychiatric History: Reports: Depression Endocrine/Metabolic History: Reports: Diabetes, Type II - Past Surgical History GI Surgical History: Reports: Cholecystectomy Female Surgical History: Reports: Hysterectomy Musculoskeletal Surgical History: Reports: Carpal Tunnel Social & Family History - Tobacco Use Smoking Status *Q: Never Smoker - Caffeine Use Caffeine Use: Reports: Soda - Recreational Drug Use Recreational Drug Use: No - Living Situation & Occupation Living situation: Reports: Occupation: Retired H&P Review of Systems - Review of Systems: Review Of Systems: ROS reveals no pertinent complaints other than HPI. Exam - Exam Exam: See Below - Vital Signs Vital Signs: Last Vital Signs Temp 97.0 F 10/13/18 15:55 Pulse 74 10/13/18 15:55 Resp 16 10/13/18 15:55 BP 145/83 H 10/13/18 15:55 Pulse Ox 96 10/13/18 15:55 Weight: 181 lb 8 oz - Exam General: Alert, Oriented HEENT: Conjunctiva Clear, EACs Clear, EOMI, Mucosa Moist & [place], Posterior Pharynx Clear, Other (Right-sided facial drooping) Lungs: Clear to Auscultation, Normal Respiratory Effort Cardiovascular: Regular Rate, Regular Rhythm GI/Abdominal Exam: Normal Bowel Sounds, Soft, Non-Tender, No Distention, No Abnormal Bruit Extremities: Normal Inspection, Other (Minimal right arm weakness and 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 Straight arm raise is slightly lower on the right and left. She has difficulty following directions so is difficult to ascertain a full neurological exam or muscle strength.) Neuro Extensive - Mental Status: Alert Neuro Extensive - Motor, Sensory, Reflexes: Tongue Deviation (R), Dysarthria, Expressive Aphasia, Facial Palsy (R), Pronator Drift (R) Psychiatric: Alert, Normal Affect - Patient Data Lab Results Last 24 hrs: Laboratory Results - last 24 hr 10/12/18 10/12/18 10/12/18 Range/Units 21:33 22:24 22:24 WBC (3.98-10.04) K/mm3 RBC (3.98-5.22) M/mm3 Hgb (11.2-15.7) gm/L Hct (34.1-44.9) % MCV (79.4-94.8) fl MCH (25.6-32.2) pg MCHC (32.2-35.5) g/dl RDW Std Deviation (36.4-46.3) fL Plt Count (182-369) K/mm3 MPV (9.4-12.3) fl Neut % (Auto) (34.0-71.1) % Lymph % (Auto) (19.3-51.7) % [place] % (Auto) (4.7-12.5) % Eos % (Auto) (0.7-5.8) Baso % (Auto) (0.1-1.2) % Neut # (Auto) (1.56-6.13) K/mm3 Lymph # (Auto) (1.18-3.74) K/mm3 [place] # (Auto) (0.24-0.36) K/mm3 Eos # (Auto) (0.04-0.36) K/mm3 Baso # (Auto) (0.01-0.08) K/mm3 VBG pH (7.30-7.40) Sodium 139 (136-145) mEq/L Potassium 3.9 (3.5-5.1) mEq/L Chloride 105 (98-107) mEq/L Carbon Dioxide 25 (21-32) mEq/L Anion Gap 12.9 (5-15) BUN 29 H (7-18) mg/dL Creatinine 1.1 H (0.55-1.02) mg/dL Est Cr Clr Drug Dosing 48.01 mL/min Estimated GFR (MDRD) 49 (>60) mL/min BUN/Creatinine Ratio 26.4 H (14-18) Glucose 300 H (80-115) mg/dL POC Glucose 307 H (80-115) mg/dL Serum Osmolality 308 H (280-300) mosm/kg Calcium 9.4 (8.5-10.1) mg/dL Magnesium 2.0 (1.8-2.4) mg/dl Total Bilirubin 0.6 (0.2-1.0) mg/dL AST 21 (15-37) U/L ALT 25 (14-59) U/L Alkaline Phosphatase 108 (46-116) U/L C-Reactive Protein 0.4 (<1.0) mg/dL Total Protein 7.1 (6.4-8.2) g/dl Albumin 3.3 L (3.4-5.0) g/dl Globulin 3.8 gm/dL Albumin/Globulin Ratio 0.9 L (1-2) Urine Color (Yellow) Urine Appearance (Clear) Urine pH (5.0-8.0) Ur Specific [place] (1.005-1.030) Urine Protein (Negative) Urine Glucose (UA) (Negative) Urine Ketones (Negative) Urine Occult Blood (Negative) Urine Nitrite (Negative) Urine Bilirubin (Negative) Urine Urobilinogen (0.2-1.0) Ur Leukocyte Esterase (Negative) Urine RBC (0-5) /hpf Urine WBC (0-5) /hpf Ur Squamous Epith Cells (0-5) /hpf Urine Bacteria (FEW) /hpf Urine Mucus (FEW) /hpf Ketones 1.4 (0.0-0.3) mM 04/20/19 04/20/19 04/20/19 Range/Units 22:24 22:28 23:11 WBC 8.22 (3.98-10.04) K/mm3 RBC 4.29 (3.98-5.22) M/mm3 Hgb 13.1 (11.2-15.7) gm/L Hct 39.8 (34.1-44.9) % MCV 92.8 (79.4-94.8) fl MCH 30.5 (25.6-32.2) pg MCHC 32.9 (32.2-35.5) g/dl RDW Std Deviation 41.9 (36.4-46.3) fL Plt Count 269 (182-369) K/mm3 MPV 10.3 (9.4-12.3) fl Neut % (Auto) 64.8 (34.0-71.1) % Lymph % (Auto) 27.7 (19.3-51.7) % [place] % (Auto) 5.5 (4.7-12.5) % Eos % (Auto) 1.7 (0.7-5.8) Baso % (Auto) 0.2 (0.1-1.2) % Neut # (Auto) 5.32 (1.56-6.13) K/mm3 Lymph # (Auto) 2.28 (1.18-3.74) K/mm3 [place] # (Auto) 0.45 H (0.24-0.36) K/mm3 Eos # (Auto) 0.14 (0.04-0.36) K/mm3 Baso # (Auto) 0.02 (0.01-0.08) K/mm3 VBG pH 7.37 (7.30-7.40) Sodium (136-145) mEq/L Potassium (3.5-5.1) mEq/L Chloride (98-107) mEq/L Carbon Dioxide (21-32) mEq/L Anion Gap (5-15) BUN (7-18) mg/dL Creatinine (0.55-1.02) mg/dL Est Cr Clr Drug Dosing mL/min Estimated GFR (MDRD) (>60) mL/min BUN/Creatinine Ratio (14-18) Glucose (80-115) mg/dL POC Glucose (80-115) mg/dL Serum Osmolality (280-300) mosm/kg Calcium (8.5-10.1) mg/dL Magnesium (1.8-2.4) mg/dl Total Bilirubin (0.2-1.0) mg/dL AST (15-37) U/L ALT (14-59) U/L Alkaline Phosphatase (46-116) U/L C-Reactive Protein (<1.0) mg/dL Total Protein (6.4-8.2) g/dl Albumin (3.4-5.0) g/dl Globulin gm/dL Albumin/Globulin Ratio (1-2) Urine Color Yellow (Yellow) Urine Appearance Slt cloudy H (Clear) Urine pH 6.0 (5.0-8.0) Ur Specific [place] 1.020 (1.005-1.030) Urine Protein 1+ H (Negative) Urine Glucose (UA) 2+ H (Negative) Urine Ketones 3+ H (Negative) Urine Occult Blood Trace-lysed H (Negative) Urine Nitrite Negative (Negative) Urine Bilirubin Negative (Negative) Urine Urobilinogen 2.0 H (0.2-1.0) Ur Leukocyte Esterase 1+ H (Negative) Urine RBC 0-5 (0-5) /hpf Urine WBC 5-10 H (0-5) /hpf Ur Squamous Epith Cells 0-5 (0-5) /hpf Urine Bacteria Few H (FEW) /hpf Urine Mucus Few (FEW) /hpf Ketones (0.0-0.3) mM 10/13/18 10/13/18 10/13/18 Range/Units 06:10 06:10 06:14 WBC 7.31 (3.98-10.04) K/mm3 RBC 3.84 L (3.98-5.22) M/mm3 Hgb 11.7 (11.2-15.7) gm/L Hct 36.0 (34.1-44.9) % MCV 93.8 (79.4-94.8) fl MCH 30.5 (25.6-32.2) pg MCHC 32.5 (32.2-35.5) g/dl RDW Std Deviation 42.0 (36.4-46.3) fL Plt Count 253 (182-369) K/mm3 MPV 10.7 (9.4-12.3) fl Neut % (Auto) 59.4 (34.0-71.1) % Lymph % (Auto) 31.3 (19.3-51.7) % [place] % (Auto) 6.7 (4.7-12.5) % Eos % (Auto) 2.1 (0.7-5.8) Baso % (Auto) 0.4 (0.1-1.2) % Neut # (Auto) 4.34 (1.56-6.13) K/mm3 Lymph # (Auto) 2.29 (1.18-3.74) K/mm3 [place] # (Auto) 0.49 H (0.24-0.36) K/mm3 Eos # (Auto) 0.15 (0.04-0.36) K/mm3 Baso # (Auto) 0.03 (0.01-0.08) K/mm3 VBG pH (7.30-7.40) Sodium 140 (136-145) mEq/L Potassium 3.7 (3.5-5.1) mEq/L Chloride 107 (98-107) mEq/L Carbon Dioxide 25 (21-32) mEq/L Anion Gap 11.7 (5-15) BUN 22 H (7-18) mg/dL Creatinine 0.9 (0.55-1.02) mg/dL Est Cr Clr Drug Dosing 58.67 mL/min Estimated GFR (MDRD) > 60 (>60) mL/min BUN/Creatinine Ratio 24.4 H (14-18) Glucose 205 H (80-115) mg/dL POC Glucose 222 H (80-115) mg/dL Serum Osmolality (280-300) mosm/kg Calcium 8.4 L (8.5-10.1) mg/dL Magnesium 1.7 L (1.8-2.4) mg/dl Total Bilirubin (0.2-1.0) mg/dL AST (15-37) U/L ALT (14-59) U/L Alkaline Phosphatase (46-116) U/L C-Reactive Protein (<1.0) mg/dL Total Protein (6.4-8.2) g/dl Albumin (3.4-5.0) g/dl Globulin gm/dL Albumin/Globulin Ratio (1-2) Urine Color (Yellow) Urine Appearance (Clear) Urine pH (5.0-8.0) Ur Specific [place] (1.005-1.030) Urine Protein (Negative) Urine Glucose (UA) (Negative) Urine Ketones (Negative) Urine Occult Blood (Negative) Urine Nitrite (Negative) Urine Bilirubin (Negative) Urine Urobilinogen (0.2-1.0) Ur Leukocyte Esterase (Negative) Urine RBC (0-5) /hpf Urine WBC (0-5) /hpf Ur Squamous Epith Cells (0-5) /hpf Urine Bacteria (FEW) /hpf Urine Mucus (FEW) /hpf Ketones (0.0-0.3) mM 10/13/18 Range/Units 12:02 WBC (3.98-10.04) K/mm3 RBC (3.98-5.22) M/mm3 Hgb (11.2-15.7) gm/L Hct (34.1-44.9) % MCV (79.4-94.8) fl MCH (25.6-32.2) pg MCHC (32.2-35.5) g/dl RDW Std Deviation (36.4-46.3) fL Plt Count (182-369) K/mm3 MPV (9.4-12.3) fl Neut % (Auto) (34.0-71.1) % Lymph % (Auto) (19.3-51.7) % [place] % (Auto) (4.7-12.5) % Eos % (Auto) (0.7-5.8) Baso % (Auto) (0.1-1.2) % Neut # (Auto) (1.56-6.13) K/mm3 Lymph # (Auto) (1.18-3.74) K/mm3 [place] # (Auto) (0.24-0.36) K/mm3 Eos # (Auto) (0.04-0.36) K/mm3 Baso # (Auto) (0.01-0.08) K/mm3 VBG pH (7.30-7.40) Sodium (136-145) mEq/L Potassium (3.5-5.1) mEq/L Chloride (98-107) mEq/L Carbon Dioxide (21-32) mEq/L Anion Gap (5-15) BUN (7-18) mg/dL Creatinine (0.55-1.02) mg/dL Est Cr Clr Drug Dosing mL/min Estimated GFR (MDRD) (>60) mL/min BUN/Creatinine Ratio (14-18) Glucose (80-115) mg/dL POC Glucose 167 H (80-115) mg/dL Serum Osmolality (280-300) mosm/kg Calcium (8.5-10.1) mg/dL Magnesium (1.8-2.4) mg/dl Total Bilirubin (0.2-1.0) mg/dL AST (15-37) U/L ALT (14-59) U/L Alkaline Phosphatase (46-116) U/L C-Reactive Protein (<1.0) mg/dL Total Protein (6.4-8.2) g/dl Albumin (3.4-5.0) g/dl Globulin gm/dL Albumin/Globulin Ratio (1-2) Urine Color (Yellow) Urine Appearance (Clear) Urine pH (5.0-8.0) Ur Specific [place] (1.005-1.030) Urine Protein (Negative) Urine Glucose (UA) (Negative) Urine Ketones (Negative) Urine Occult Blood (Negative) Urine Nitrite (Negative) Urine Bilirubin (Negative) Urine Urobilinogen (0.2-1.0) Ur Leukocyte Esterase (Negative) Urine RBC (0-5) /hpf Urine WBC (0-5) /hpf Ur Squamous Epith Cells (0-5) /hpf Urine Bacteria (FEW) /hpf Urine Mucus (FEW) /hpf Ketones (0.0-0.3) mM Result Diagrams: 10/13/18 06:10 10/13/18 06:10 Imaging Impressions Last 24 hrs: CT of the head showed no acute hemorrhage or cranial process. There is multiple white matter changes consistent with multiple old strokes. - Problem List (1) CVA (cerebral vascular accident) SNOMED Code(s): 809958815 ICD Code: I63.9 - CEREBRAL INFARCTION, UNSPECIFIED Status: Acute Current Visit: Yes (2) HTN (hypertension) SNOMED Code(s): 80324010 ICD Code: I10 - ESSENTIAL (PRIMARY) HYPERTENSION Status: Acute Current Visit: Yes (3) Hyperglycemia SNOMED Code(s): 29494615 ICD Code: R73.9 - HYPERGLYCEMIA, UNSPECIFIED Status: Acute Current Visit : Yes Problem List Initiated/Reviewed/Updated: Yes Orders Last 24hrs: Active Orders 24 hr Category Date Time Status Admission Status [Patient Status] [ADT] Routine ADT 10/12/18 23:08 Active Blood Glucose Check, Bedside [RC] QIDACANDBED Care 10/12/18 23:17 Active Up With Assistance [RC] ASDIRECTED Care 10/12/18 23:23 Active Consult to Case Management/Lead Enterprise Architect [CONS] Cons 10/12/18 23:23 Active Routine Consult to Case Management/Lead Enterprise Architect [CONS] Cons 10/13/18 13:09 Active Routine Consult to Diabetic Nurse Specialist [CONS] Routine Cons 10/12/18 23:23 Active Consult to Canoe Maker [CONS] Routine Cons 10/12/18 23:23 Active OT Evaluation and Treatment [CONS] Routine Cons 10/12/18 23:23 Active OT Evaluation and Treatment [CONS] Routine Cons 10/13/18 13:09 Active PT Evaluation and Treatment [CONS] Routine Cons 10/12/18 23:23 Active PT Evaluation and Treatment [CONS] Routine Cons 10/13/18 13:09 Active 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 Evaluation and Treatment [CONS] Routine Cons 10/13/18 13:09 Active Consistent Carbohydrate Diet [DIET] Diet 10/13/18 Breakfast Active Head wo Cont [CT] Routine Exams 10/13/18 12:13 Taken Hip Min 2V or 3V w Pelvis Rt [CR] Stat Exams 10/12/18 22:13 Taken CULTURE URINE [RM] Routine Lab 10/13/18 07:29 Received Aspirin [Halfprin] Med 10/13/18 09:00 Active 81 mg PO DAILY Benazepril [Lotensin] Med 10/13/18 09:00 Active 40 mg PO DAILY Cholecalciferol (Vitamin D3) [Vitamin D3] Med 10/13/18 09:00 Active 1,000 units PO DAILY Citalopram [Celexa] Med 10/13/18 09:00 Active 40 mg PO DAILY Insulin Glarg,Human.Rec.Analog [LantUS] Med 10/13/18 09:00 Active 15 unit SUBCUT DAILY Insulin Lispro [HumaLOG] Med 10/13/18 07:00 Active 7 unit SUBCUT QIDACANDBED Oxybutynin [Oxybutynin ER] Med 10/13/18 09:00 Active 5 mg PO DAILY Potassium Chloride [Klor-Con M20] Med 10/13/18 09:00 Active 20 meq PO BID Rosuvastatin [Crestor] Med 10/13/18 09:00 Active 10 mg PO DAILY amLODIPine [Norvasc] Med 10/13/18 09:00 Active 10 mg PO DAILY hydrALAZINE [Apresoline] Med 10/13/18 07:30 Active 25 mg PO Q8H hydroCHLOROthiazide Med 10/13/18 09:00 Active 12.5 mg PO DAILY metFORMIN [Glucophage] Med 10/13/18 17:00 Active 850 mg PO BIDMEALS Resuscitation Status Routine Resus Stat 10/12/18 23:23 Ordered Medication Orders Amlodipine Besylate (Norvasc) 10 mg PO DAILY [facility] Last Admin: 10/13/18 08:24 Dose: 10 mg Aspirin (Halfprin) 81 mg PO DAILY [facility] Last Admin: 10/13/18 08:24 Dose: 81 mg Benazepril HCl (Lotensin) 40 mg PO DAILY [facility] Last Admin: 10/13/18 08:23 Dose: 40 mg Cholecalciferol (Vitamin D3) 1,000 units PO DAILY [facility] Last Admin: 10/13/18 08:23 Dose: 1,000 units Citalopram Hydrobromide (Celexa) 40 mg PO DAILY [facility] Last Admin: 10/13/18 08:24 Dose: 40 mg Hydralazine HCl (Apresoline) 25 mg PO Q8H [facility] Last Admin: 10/13/18 08:24 Dose: 25 mg Hydrochlorothiazide (Hydrochlorothiazide) 12.5 mg PO DAILY [facility] Last Admin: 10/13/18 08:24 Dose: 12.5 mg Insulin Glargine (Lantus) 15 unit SUBCUT DAILY [facility] Last Admin: 10/13/18 08:24 Dose: 15 units Insulin Human Lispro (Humalog) 7 unit SUBCUT QIDACANDBED [facility] Last Admin: 10/13/18 14:04 Dose: 7 units Admin: 10/13/18 08:25 Dose: 7 units Metformin HCl (Glucophage) 850 mg PO BIDMEALS [facility] Oxybutynin Chloride (Oxybutynin Er) 5 mg PO DAILY [facility] Last Admin: 10/13/18 08:23 Dose: 5 mg Potassium Chloride (Klor-Con M20) 20 meq PO BID [facility] Last Admin: 10/13/18 08:24 Dose: 20 meq Rosuvastatin Calcium (Crestor) 10 mg PO DAILY [facility] Last Admin: 10/13/18 08:24 Dose: 10 mg Assessment/Plan Comment:: CVA * At this time it appears that she has had a right-sided stroke. This likely started on before she arrived at her son's house. * MRI of the brain in the morning. * She has a history of carotid stenosis, carotid artery Dopplers will be ordered. * Echocardiogram tomorrow. * I discussed the matter with her and her son. She will be started on Plavix. She will continue on her aspirin. * PT, OT, speech therapy. * Discharge planning. She will likely need placement at least at a assisted facility Hypertension * Patients hypertension over the last few days likely been worsened because of her CVA. Fortunately by not having all of her blood pressure medications were kept her blood pressure relatively high which is necessary in an acute CVA. She is now 3 days past the initial presentation and we can restart all her medications and bring down her blood pressure slowly. * Restart home medications, we have updated list. Type 2 diabetes insulin-dependent * Restart Lantus at half her normal dose. She will be started on 15 units a day. * Check blood sugars every before meals and daily at bedtime * Hemoglobin A1c yesterday was 10.6. * Lipid some yesterday. Hyperlipidemia * Continue home meds. Length of stay 3-4 days. Discharge planning for possible placement. Diabetic education.
[2018-10-13] MEDS ORDERED: 50% Dextrose in Water 50 ML Syringe IVPUSH PRN (16:33)
[2018-10-13] MEDS ORDERED: Clopidogrel 75 MG Tab PO ONE (16:37)
[2018-10-13] MEDS: Aspirin 325 MG Tab.EC PO SCH (17:26)
--- NOTE | 2018-10-14 05:52 | CR ---
Pelvis and right hip: AP view of the pelvis was obtained as well as AP and frog-leg lateral views of the right hip. Comparison: No prior study. Joint spaces within both hips are maintained. Sacroiliac joints are within normal limits. Single surgical clip is seen within the right pelvis. Vascular calcification is present. No acute fracture or other bony abnormality is seen. Impression: 1. Nothing acute is appreciated. Diagnostic code #2
[2018-10-14] MEDS: hydrALAZINE 25 MG Tab PO SCH ×4 (06:16→23:35)
--- NOTE | 2018-10-14 06:27 | CT ---
Addendum: Technique exam description shows a voice recognition error. Sentence describing intravenous contrast should read as follows: Intravenous contrast was not utilized. --- Addendum1 above dictated on [10/14/2018 15:30] by [Josseline Matamoros Hilton J.] --- --- Addendum1 above signed on [10/14/2018 15:31] by [Josseline Matamoros Hilton J.] --- --- Original report below dictated on [10/13/2018 13:35] by [Josseline Matamoros Hilton J.] --- --- Original report below signed on [10/14/2018 06:24] by [Josseline Matamoros Hilton J.] --- Head CT Technique: Multiple axial sections through the brain were obtained. Intravenous contrast was Comparison: Prior head CT study of 10/11/18. Findings: Ventricles along with basal cisterns and sulci over the convexities are mildly prominent. Atrophy is also noted within the cerebellum. Mild diminished density is noted within portions of the periventricular and subcortical white matter compatible with small vessel ischemic demyelination change. Similar findings are seen within portions of the basal ganglia. No other abnormal parenchymal densities are seen. No evidence of intracranial hemorrhage. No midline shift or mass effect is seen. Bone window settings were reviewed which show no acute calvarial abnormality with visualized sinuses being clear. Atherosclerotic calcification is seen within the carotid siphon. Impression: 1. Senescent changes as noted above. Nothing acute is appreciated on noncontrast head CT exam. No significant change is identified from prior exam. Diagnostic code #2 I agree with preliminary report from [facility], finalized on 10/13/18, 2:26 PM Central Time --- Addendum1 signed ---
[2018-10-14] MEDS ORDERED: 50% Dextrose in Water 50 ML SDV IV PRN (07:54)
[2018-10-14] MEDS: Insulin Lispro 100 Units/ML 3 ML Vial SUBCUT SCH ×7 (08:40→21:10)
[2018-10-14] MEDS: amLODIPine 10 MG Tab PO SCH (08:52)
[2018-10-14] MEDS: Citalopram 20 MG Tab PO SCH (08:52)
[2018-10-14] MEDS: Hydrochlorothiazide 12.5 MG Cap PO SCH (08:52)
[2018-10-14] MEDS: Oxybutynin 5 MG Tab.ER PO SCH (08:53)
[2018-10-14] MEDS: Rosuvastatin 10 MG Tab PO SCH (08:53)
[2018-10-14] MEDS: Cholecalciferol (Vitamin D3) 1,000 Unit Tab PO SCH (08:53)
[2018-10-14] MEDS: Potassium Chloride 20 MEQ Tab.ER PO SCH ×2 (08:53→21:03)
[2018-10-14] MEDS: Aspirin 325 MG Tab.EC PO SCH (08:53)
[2018-10-14] MEDS ORDERED: Clopidogrel 75 MG Tab PO SCH (09:00)
[2018-10-14] MEDS: Insulin Glarg,Human.Rec.Analog 100 UNIT/ML ML SUBCUT SCH (09:30)
--- NOTE | 2018-10-14 09:37 | PCM.PN ---
- General Info Date of Service: 10/14/18 Admission Dx/Problem (Free Text): Admission Diagnosis/Problem Admission Diagnosis/Problem Weakness Functional Status: Reports: Pain Controlled, Tolerating Diet, Ambulating. Denies: Urinating, New Symptoms - Review of Systems General: Reports: Weakness. Denies: Fever, Fatigue, Malaise, Chills HEENT: Reports: No Symptoms. Denies: Headaches, Sore Throat Pulmonary: Reports: No Symptoms. Denies: Shortness of Breath, Pleuritic Chest Pain, Cough, Sputum, Wheezing Cardiovascular: Reports: No Symptoms. Denies: Chest Pain, Palpitations, Dyspnea on Exertion, Edema Gastrointestinal: Reports: No Symptoms. Denies: Abdominal Pain, Constipation, Diarrhea, Nausea, Vomiting Genitourinary: Reports: No Symptoms. Denies: Pain Musculoskeletal: Reports: No Symptoms Skin: Reports: No Symptoms. Denies: Cyanosis Neurological: Reports: Pre-Existing Deficit, Difficulty Walking, Weakness, Gait Disturbance. Denies: Confusion, Dizziness, Syncope, Tingling, Tremors, Change in Speech Psychiatric: Reports: No Symptoms - Patient Data Vitals - Most Recent: Last Vital Signs Temp 98.1 F 10/14/18 06:06 Pulse 86 10/14/18 08:46 Resp 20 10/14/18 08:46 BP 194/84 H 10/14/18 08:52 Pulse Ox 99 10/14/18 08:46 Weight - Most Recent: 183 lb 6.4 oz I&O - Last 24 Hours: Intake & Output 10/13/18 10/14/18 10/14/18 22:59 06:59 14:59 Intake Total 320 200 Balance 320 200 Lab Results Last 24 Hours: Laboratory Results - last 24 hr 10/13/18 10/13/18 10/13/18 Range/Units 12:02 16:25 22:05 WBC (3.98-10.04) K/mm3 RBC (3.98-5.22) M/mm3 Hgb (11.2-15.7) gm/L Hct (34.1-44.9) % MCV (79.4-94.8) fl MCH (25.6-32.2) pg MCHC (32.2-35.5) g/dl RDW Std Deviation (36.4-46.3) fL Plt Count (182-369) K/mm3 MPV (9.4-12.3) fl Neut % (Auto) (34.0-71.1) % Lymph % (Auto) (19.3-51.7) % Isabella % (Auto) (4.7-12.5) % Eos % (Auto) (0.7-5.8) Baso % (Auto) (0.1-1.2) % Neut # (Auto) (1.56-6.13) K/mm3 Lymph # (Auto) (1.18-3.74) K/mm3 Isabella # (Auto) (0.24-0.36) K/mm3 Eos # (Auto) (0.04-0.36) K/mm3 Baso # (Auto) (0.01-0.08) K/mm3 Sodium (136-145) mEq/L Potassium (3.5-5.1) mEq/L Chloride (98-107) mEq/L Carbon Dioxide (21-32) mEq/L Anion Gap (5-15) BUN (7-18) mg/dL Creatinine (0.55-1.02) mg/dL Est Cr Clr Drug Dosing mL/min Estimated GFR (MDRD) (>60) mL/min BUN/Creatinine Ratio (14-18) Glucose (80-115) mg/dL POC Glucose 167 H 136 H 70 L (80-115) mg/dL Calcium (8.5-10.1) mg/dL Magnesium (1.8-2.4) mg/dl Total Bilirubin (0.2-1.0) mg/dL AST (15-37) U/L ALT (14-59) U/L Alkaline Phosphatase (46-116) U/L Total Protein (6.4-8.2) g/dl Albumin (3.4-5.0) g/dl Globulin gm/dL Albumin/Globulin Ratio (1-2) 10/13/18 10/14/18 10/14/18 Range/Units 23:10 06:04 06:05 WBC 7.87 (3.98-10.04) K/mm3 RBC 4.05 (3.98-5.22) M/mm3 Hgb 12.5 (11.2-15.7) gm/L Hct 37.5 (34.1-44.9) % MCV 92.6 (79.4-94.8) fl MCH 30.9 (25.6-32.2) pg MCHC 33.3 (32.2-35.5) g/dl RDW Std Deviation 41.5 (36.4-46.3) fL Plt Count 280 (182-369) K/mm3 MPV 10.9 (9.4-12.3) fl Neut % (Auto) 60.1 (34.0-71.1) % Lymph % (Auto) 30.1 (19.3-51.7) % Isabella % (Auto) 7.4 (4.7-12.5) % Eos % (Auto) 2.0 (0.7-5.8) Baso % (Auto) 0.3 (0.1-1.2) % Neut # (Auto) 4.73 (1.56-6.13) K/mm3 Lymph # (Auto) 2.37 (1.18-3.74) K/mm3 Isabella # (Auto) 0.58 H (0.24-0.36) K/mm3 Eos # (Auto) 0.16 (0.04-0.36) K/mm3 Baso # (Auto) 0.02 (0.01-0.08) K/mm3 Sodium (136-145) mEq/L Potassium (3.5-5.1) mEq/L Chloride (98-107) mEq/L Carbon Dioxide (21-32) mEq/L Anion Gap (5-15) BUN (7-18) mg/dL Creatinine (0.55-1.02) mg/dL Est Cr Clr Drug Dosing mL/min Estimated GFR (MDRD) (>60) mL/min BUN/Creatinine Ratio (14-18) Glucose (80-115) mg/dL POC Glucose 122 H 99 (80-115) mg/dL Calcium (8.5-10.1) mg/dL Magnesium (1.8-2.4) mg/dl Total Bilirubin (0.2-1.0) mg/dL AST (15-37) U/L ALT (14-59) U/L Alkaline Phosphatase (46-116) U/L Total Protein (6.4-8.2) g/dl Albumin (3.4-5.0) g/dl Globulin gm/dL Albumin/Globulin Ratio (1-2) 10/14/18 Range/Units 06:05 WBC (3.98-10.04) K/mm3 RBC (3.98-5.22) M/mm3 Hgb (11.2-15.7) gm/L Hct (34.1-44.9) % MCV (79.4-94.8) fl MCH (25.6-32.2) pg MCHC (32.2-35.5) g/dl RDW Std Deviation (36.4-46.3) fL Plt Count (182-369) K/mm3 MPV (9.4-12.3) fl Neut % (Auto) (34.0-71.1) % Lymph % (Auto) (19.3-51.7) % Isabella % (Auto) (4.7-12.5) % Eos % (Auto) (0.7-5.8) Baso % (Auto) (0.1-1.2) % Neut # (Auto) (1.56-6.13) K/mm3 Lymph # (Auto) (1.18-3.74) K/mm3 Isabella # (Auto) (0.24-0.36) K/mm3 Eos # (Auto) (0.04-0.36) K/mm3 Baso # (Auto) (0.01-0.08) K/mm3 Sodium 139 (136-145) mEq/L Potassium 4.4 (3.5-5.1) mEq/L Chloride 106 (98-107) mEq/L Carbon Dioxide 25 (21-32) mEq/L Anion Gap 12.4 (5-15) BUN 20 H (7-18) mg/dL Creatinine 0.9 (0.55-1.02) mg/dL Est Cr Clr Drug Dosing 58.67 mL/min Estimated GFR (MDRD) > 60 (>60) mL/min BUN/Creatinine Ratio 22.2 H (14-18) Glucose 100 (80-115) mg/dL POC Glucose (80-115) mg/dL Calcium 8.9 (8.5-10.1) mg/dL Magnesium 1.7 L (1.8-2.4) mg/dl Total Bilirubin 0.7 (0.2-1.0) mg/dL AST 19 (15-37) U/L ALT 20 (14-59) U/L Alkaline Phosphatase 96 (46-116) U/L Total Protein 6.5 (6.4-8.2) g/dl Albumin 3.0 L (3.4-5.0) g/dl Globulin 3.5 gm/dL Albumin/Globulin Ratio 0.9 L (1-2) Med Orders - Current: Current Medications Amlodipine Besylate (Norvasc) 10 mg PO DAILY [facility] Last Admin: 10/14/18 08:52 Dose: 10 mg Aspirin (Ecotrin) 325 mg PO DAILY [facility] Last Admin: 10/14/18 08:53 Dose: 325 mg Benazepril HCl (Lotensin) 40 mg PO DAILY [facility] Last Admin: 10/14/18 08:51 Dose: 40 mg Cholecalciferol (Vitamin D3) 1,000 units PO DAILY [facility] Last Admin: 10/14/18 08:53 Dose: 1,000 units Citalopram Hydrobromide (Celexa) 40 mg PO DAILY [facility] Last Admin: 10/14/18 08:52 Dose: 40 mg Dextrose/Water (Dextrose 50% In Water) 50 ml IV ASDIRECTED PRN PRN Reason: Hypoglycemia Hydralazine HCl (Apresoline) 25 mg PO Q8H [facility] Last Admin: 10/14/18 08:51 Dose: 25 mg Hydrochlorothiazide (Hydrochlorothiazide) 12.5 mg PO DAILY [facility] Last Admin: 10/14/18 08:52 Dose: 12.5 mg Insulin Glargine (Lantus) 15 unit SUBCUT DAILY [facility] Last Admin: 10/14/18 09:30 Dose: 15 units Insulin Human Lispro (Humalog) 7 unit SUBCUT QIDACANDBED [facility] Last Admin: 10/14/18 09:29 Dose: 7 units Insulin Human Lispro (Humalog) 0 unit SUBCUT QIDACANDBED [facility]; Protocol Last Admin: 10/14/18 08:40 Dose: Not Given Metformin HCl (Glucophage) 850 mg PO BIDMEALS [facility] Last Admin: 10/14/18 08:53 Dose: 850 mg Oxybutynin Chloride (Oxybutynin Er) 5 mg PO DAILY [facility] Last Admin: 10/14/18 08:53 Dose: 5 mg Potassium Chloride (Klor-Con M20) 20 meq PO BID [facility] Last Admin: 10/14/18 08:53 Dose: 20 meq Rosuvastatin Calcium (Crestor) 10 mg PO DAILY [facility] Last Admin: 10/14/18 08:53 Dose: 10 mg Discontinued Medications Aspirin (Halfprin) 81 mg PO DAILY [facility] Last Admin: 10/13/18 08:24 Dose: 81 mg Clonidine HCl (Catapres) 0.2 mg PO ONETIME ONE Stop: 10/12/18 22:59 Last Admin: 10/12/18 23:06 Dose: 0.2 mg Clopidogrel Bisulfate (Plavix) 300 mg PO ONETIME ONE Stop: 10/13/18 16:38 Last Admin: 10/13/18 17:26 Dose: 300 mg Clopidogrel Bisulfate (Plavix) 75 mg PO DAILY [facility] Dextrose/Water (Dextrose 50% In Water) 50 ml IVPUSH ASDIRECTED PRN PRN Reason: Hypoglycemia Sodium Chloride (Normal Saline) 1,000 mls @ 999 mls/hr IV ONETIME ONE Stop: 10/12/18 23:13 Last Admin: 10/12/18 22:25 Dose: 999 mls/hr Magnesium Sulfate 2 gm/ Premix 50 mls @ 25 mls/hr IV ONETIME ONE Stop: 10/13/18 11:20 Last Admin: 10/13/18 09:56 Dose: 25 mls/hr - Exam Quality Assessment: DVT Prophylaxis General: Alert, Oriented, Cooperative, No Acute Distress HEENT: Pupils Equal, Pupils Reactive, EOMI, Mucous Membr. Moist/[place] Neck: Supple, Trachea Midline, No JVD Lungs: Clear to Auscultation, Normal Respiratory Effort Cardiovascular: Regular Rate, Regular Rhythm GI/Abdominal Exam: Normal Bowel Sounds, Soft, Non-Tender, No Organomegaly, No Distention (Female) Exam: Deferred Back Exam: Normal Inspection, Full Range of Motion Extremities: Normal Inspection, Normal Range of Motion, Non-Tender, No Pedal Edema, Normal Capillary Refill Peripheral Pulses: 2+: Brachial (R), Radial (L), Dorsalis Pedis (L), Dorsalis Pedis (R) Skin: Warm, Dry, Intact Neurological: Normal Speech, Other (Right sided tongue deviation, Right sided arm drift. ). No: Strength Equal Bilateral (Mild right weakness ) Psy/Mental Status: Alert - Problem List & Annotations (1) CVA (cerebral vascular accident) SNOMED Code(s): 447780156 Code(s): I63.9 - CEREBRAL INFARCTION, UNSPECIFIED Status: Acute Priority : High Current Visit: Yes Qualifiers: CVA mechanism: unspecified Qualified Code(s): I63.9 - Cerebral infarction, unspecified (2) HTN (hypertension) SNOMED Code(s): 01205998 Code(s): I10 - ESSENTIAL (PRIMARY) HYPERTENSION Status: Acute Priority: High Current Visit: Yes Qualifiers: Hypertension type: unspecified Qualified Code(s): I10 - Essential (primary ) hypertension (3) Right leg weakness SNOMED Code(s): 642391998 Code(s): R29.898 - OT SYMPTOMS AND SIGNS INVOLVING THE MUSCULOSKELETAL SYSTEM Status: Acute Priority: High Current Visit: Yes - Problem List Review Problem List Initiated/Reviewed/Updated: Yes - Plan Plan:: CVA * At this time it appears that she has had a right-sided stroke. This likely started on before she arrived at her son's house. * MRI of the brain tomorrow as machine is down today * She has a history of carotid stenosis, carotid artery Dopplers obtained * Echocardiogram obtained and pending * Lipid panel: Triglycerides 121, total cholesterol 138, LDL 85, HDL 39. * PT, OT, speech therapy. * Discharge planning. She will likely need placement at least at a [facility] re[facility] stay Hypertension, improved * Patients hypertension over the last few days likely been worsened because of her CVA. Fortunately by not having all of her blood pressure medications were kept her blood pressure relatively high which is necessary in an acute CVA. She is now 3 days past the initial presentation and we can restart all her medications and bring down her blood pressure slowly. * Restart home medications, we have updated list. Type 2 diabetes insulin-dependent * Restart Lantus at half her normal dose. She will be started on 15 units a day. * Check blood sugars every before meals and daily at bedtime * Hemoglobin A1c yesterday was 10.6. Hyperlipidemia * Continue home meds. * Lipid panel as above Length of stay 3-4 days. Discharge planning for possible placement. Diabetic education.
[2018-10-14] MEDS ORDERED: Magnesium Sulfate/Water 2 GM in Premix Bag 1 BAG IV ONE (09:55)
--- NOTE | 2018-10-14 11:11 | US ---
Carotid ultrasound: Multiple real-time images were obtained. Plaque: Mild amount of smooth plaque seen within the right carotid bulb. Moderate amount of plaque noted within the left carotid bulb extending into the left proximal internal carotid artery. This appears heterogeneous and calcified with irregular surface margins. Comparison: No prior carotid imaging. Findings: Velocity measurements: Right side: CCA has a peak systolic velocity of 0.75 m/s. ICA has a peak systolic velocity of 0.85 m/s and peak end-diastolic velocity of 0.22 m/s. ECA has a peak systolic velocity of 1.26 m/s. Vertebral artery has a peak systolic velocity of 0.73 m/s. ICA/CCA ratio is 1.1. Left side: CCA has a peak systolic velocity of 1.15 m/s. ICA has a peak systolic velocity of 1.11 m/s and peak end-diastolic velocity of 0.17 m/s. ECA has a peak systolic velocity of 1.59 m/s. Vertebral artery has a peak systolic velocity of 0.66 m/s. ICA/CCA ratio is 1.0. Impression: 1. Plaque as noted above, worse on the left side. 2. Velocity measurements within the internal carotid arteries correspond to stenosis in the range 1-49%. 3. Mildly elevated velocity measurement within the left external carotid artery is seen. Diagnostic code #3
[2018-10-14] MEDS ORDERED: cefTRIAXone 2 GM Vial IV SCH (16:30)
[2018-10-14] MEDS: cefTRIAXone 2 GM in Sodium Chloride 0.9% 100 ML IV SCH (17:37)
[2018-10-15] MEDS: hydrALAZINE 25 MG Tab PO SCH ×3 (06:30→23:06)
[2018-10-15] MEDS ORDERED: hydrALAZINE 20 MG/ML SDV IVPUSH PRN ×2 (06:31)
--- NOTE | 2018-10-15 06:47 | PCM.PN ---
- General Info Date of Service: 10/15/18 Admission Dx/Problem (Free Text): Admission Diagnosis/Problem Admission Diagnosis/Problem Weakness Functional Status: Reports: Pain Controlled, Tolerating Diet, Ambulating, Urinating. Denies: New Symptoms - Review of Systems General: Reports: Weakness (improving ). Denies: Fever, Fatigue, Malaise, Chills HEENT: Reports: No Symptoms. Denies: Headaches, Sore Throat Pulmonary: Reports: No Symptoms. Denies: Shortness of Breath, Pleuritic Chest Pain, Cough, Sputum, Hemoptysis, Wheezing Cardiovascular: Reports: No Symptoms. Denies: Chest Pain, Palpitations, Lightheadedness Gastrointestinal: Reports: No Symptoms. Denies: Abdominal Pain, Constipation, Decreased Appetite, Diarrhea, Nausea, Vomiting Genitourinary: Reports: No Symptoms. Denies: Pain Musculoskeletal: Reports: No Symptoms Skin: Reports: No Symptoms. Denies: Cyanosis Neurological: Reports: Trouble Speaking (improving ), Difficulty Walking, Weakness, Gait Disturbance. Denies: Confusion, Dizziness, Headache, Numbness, Paresthesia, Tingling, Tremors Psychiatric: Reports: No Symptoms - Patient Data Vitals - Most Recent: Last Vital Signs Temp 98.1 F 10/14/18 23:35 Pulse 82 10/14/18 23:35 Resp 20 10/14/18 23:35 BP 217/98 H 10/15/18 06:30 Pulse Ox 100 10/14/18 23:35 Weight - Most Recent: 182 lb 12.8 oz I&O - Last 24 Hours: Intake & Output 10/14/18 10/14/18 10/15/18 14:59 22:59 06:59 Intake Total 1190 100 Output Total 100 Balance 1190 0 Lab Results Last 24 Hours: Laboratory Results - last 24 hr 10/14/18 10/14/18 10/14/18 Range/Units 06:05 06:05 06:05 WBC 7.87 (3.98-10.04) K/mm3 RBC 4.05 (3.98-5.22) M/mm3 Hgb 12.5 (11.2-15.7) gm/L Hct 37.5 (34.1-44.9) % MCV 92.6 (79.4-94.8) fl MCH 30.9 (25.6-32.2) pg MCHC 33.3 (32.2-35.5) g/dl RDW Std Deviation 41.5 (36.4-46.3) fL Plt Count 280 (182-369) K/mm3 MPV 10.9 (9.4-12.3) fl Neut % (Auto) 60.1 (34.0-71.1) % Lymph % (Auto) 30.1 (19.3-51.7) % [place] % (Auto) 7.4 (4.7-12.5) % Eos % (Auto) 2.0 (0.7-5.8) Baso % (Auto) 0.3 (0.1-1.2) % Neut # (Auto) 4.73 (1.56-6.13) K/mm3 Lymph # (Auto) 2.37 (1.18-3.74) K/mm3 [place] # (Auto) 0.58 H (0.24-0.36) K/mm3 Eos # (Auto) 0.16 (0.04-0.36) K/mm3 Baso # (Auto) 0.02 (0.01-0.08) K/mm3 Sodium 139 (136-145) mEq/L Potassium 4.4 (3.5-5.1) mEq/L Chloride 106 (98-107) mEq/L Carbon Dioxide 25 (21-32) mEq/L Anion Gap 12.4 (5-15) BUN 20 H (7-18) mg/dL Creatinine 0.9 (0.55-1.02) mg/dL Est Cr Clr Drug Dosing 58.67 mL/min Estimated GFR (MDRD) > 60 (>60) mL/min BUN/Creatinine Ratio 22.2 H (14-18) Glucose 100 (80-115) mg/dL POC Glucose (80-115) mg/dL Calcium 8.9 (8.5-10.1) mg/dL Magnesium 1.7 L (1.8-2.4) mg/dl Total Bilirubin 0.7 (0.2-1.0) mg/dL AST 19 (15-37) U/L ALT 20 (14-59) U/L Alkaline Phosphatase 96 (46-116) U/L Total Protein 6.5 (6.4-8.2) g/dl Albumin 3.0 L (3.4-5.0) g/dl Globulin 3.5 gm/dL Albumin/Globulin Ratio 0.9 L (1-2) Triglycerides 121 (<150) mg/dL Cholesterol 138 (<200) mg/dL LDL Cholesterol Direct 85 (<100) mg/dL HDL Cholesterol 39.0 L (40-59) mg/dL 10/14/18 10/14/18 10/14/18 Range/Units 11:32 17:08 21:04 WBC (3.98-10.04) K/mm3 RBC (3.98-5.22) M/mm3 Hgb (11.2-15.7) gm/L Hct (34.1-44.9) % MCV (79.4-94.8) fl MCH (25.6-32.2) pg MCHC (32.2-35.5) g/dl RDW Std Deviation (36.4-46.3) fL Plt Count (182-369) K/mm3 MPV (9.4-12.3) fl Neut % (Auto) (34.0-71.1) % Lymph % (Auto) (19.3-51.7) % [place] % (Auto) (4.7-12.5) % Eos % (Auto) (0.7-5.8) Baso % (Auto) (0.1-1.2) % Neut # (Auto) (1.56-6.13) K/mm3 Lymph # (Auto) (1.18-3.74) K/mm3 [place] # (Auto) (0.24-0.36) K/mm3 Eos # (Auto) (0.04-0.36) K/mm3 Baso # (Auto) (0.01-0.08) K/mm3 Sodium (136-145) mEq/L Potassium (3.5-5.1) mEq/L Chloride (98-107) mEq/L Carbon Dioxide (21-32) mEq/L Anion Gap (5-15) BUN (7-18) mg/dL Creatinine (0.55-1.02) mg/dL Est Cr Clr Drug Dosing mL/min Estimated GFR (MDRD) (>60) mL/min BUN/Creatinine Ratio (14-18) Glucose (80-115) mg/dL POC Glucose 87 147 H 215 H (80-115) mg/dL Calcium (8.5-10.1) mg/dL Magnesium (1.8-2.4) mg/dl Total Bilirubin (0.2-1.0) mg/dL AST (15-37) U/L ALT (14-59) U/L Alkaline Phosphatase (46-116) U/L Total Protein (6.4-8.2) g/dl Albumin (3.4-5.0) g/dl Globulin gm/dL Albumin/Globulin Ratio (1-2) Triglycerides (<150) mg/dL Cholesterol (<200) mg/dL LDL Cholesterol Direct (<100) mg/dL HDL Cholesterol (40-59) mg/dL 10/15/18 Range/Units 06:22 WBC (3.98-10.04) K/mm3 RBC (3.98-5.22) M/mm3 Hgb (11.2-15.7) gm/L Hct (34.1-44.9) % MCV (79.4-94.8) fl MCH (25.6-32.2) pg MCHC (32.2-35.5) g/dl RDW Std Deviation (36.4-46.3) fL Plt Count (182-369) K/mm3 MPV (9.4-12.3) fl Neut % (Auto) (34.0-71.1) % Lymph % (Auto) (19.3-51.7) % [place] % (Auto) (4.7-12.5) % Eos % (Auto) (0.7-5.8) Baso % (Auto) (0.1-1.2) % Neut # (Auto) (1.56-6.13) K/mm3 Lymph # (Auto) (1.18-3.74) K/mm3 [place] # (Auto) (0.24-0.36) K/mm3 Eos # (Auto) (0.04-0.36) K/mm3 Baso # (Auto) (0.01-0.08) K/mm3 Sodium (136-145) mEq/L Potassium (3.5-5.1) mEq/L Chloride (98-107) mEq/L Carbon Dioxide (21-32) mEq/L Anion Gap (5-15) BUN (7-18) mg/dL Creatinine (0.55-1.02) mg/dL Est Cr Clr Drug Dosing mL/min Estimated GFR (MDRD) (>60) mL/min BUN/Creatinine Ratio (14-18) Glucose (80-115) mg/dL POC Glucose 166 H (80-115) mg/dL Calcium (8.5-10.1) mg/dL Magnesium (1.8-2.4) mg/dl Total Bilirubin (0.2-1.0) mg/dL AST (15-37) U/L ALT (14-59) U/L Alkaline Phosphatase (46-116) U/L Total Protein (6.4-8.2) g/dl Albumin (3.4-5.0) g/dl Globulin gm/dL Albumin/Globulin Ratio (1-2) Triglycerides (<150) mg/dL Cholesterol (<200) mg/dL LDL Cholesterol Direct (<100) mg/dL HDL Cholesterol (40-59) mg/dL Dev Results Last 24 Hours: Microbiology 10/12/18 23:11 Urine Culture - Preliminary Urine, Bladder Gram Positive Cocci Gram Negative Rods Med Orders - Current: Current Medications Amlodipine Besylate (Norvasc) 10 mg PO DAILY [facility] Last Admin: 10/14/18 08:52 Dose: 10 mg Aspirin (Ecotrin) 325 mg PO DAILY [facility] Last Admin: 10/14/18 08:53 Dose: 325 mg Benazepril HCl (Lotensin) 40 mg PO DAILY [facility] Last Admin: 10/14/18 08:51 Dose: 40 mg Cholecalciferol (Vitamin D3) 1,000 units PO DAILY [facility] Last Admin: 10/14/18 08:53 Dose: 1,000 units Citalopram Hydrobromide (Celexa) 40 mg PO DAILY [facility] Last Admin: 10/14/18 08:52 Dose: 40 mg Dextrose/Water (Dextrose 50% In Water) 50 ml IV ASDIRECTED PRN PRN Reason: Hypoglycemia Hydralazine HCl (Apresoline) 25 mg PO Q8H [facility] Last Admin: 10/15/18 06:30 Dose: 25 mg Hydralazine HCl (Apresoline) 20 mg IVPUSH Q4H PRN PRN Reason: Hypertension Hydrochlorothiazide (Hydrochlorothiazide) 12.5 mg PO DAILY [facility] Last Admin: 10/14/18 08:52 Dose: 12.5 mg Ceftriaxone Sodium 2 gm/ (Sodium Chloride) 100 mls @ 200 mls/hr IV Q24H [facility] Last Admin: 10/14/18 17:37 Dose: 200 mls/hr Insulin Glargine (Lantus) 15 unit SUBCUT DAILY [facility] Last Admin: 10/14/18 09:30 Dose: 15 units Insulin Human Lispro (Humalog) 0 unit SUBCUT QIDACANDBED [facility]; Protocol Last Admin: 10/14/18 21:10 Dose: 2 unit Metformin HCl (Glucophage) 850 mg PO BIDMEALS [facility] Last Admin: 10/15/18 06:27 Dose: 850 mg Oxybutynin Chloride (Oxybutynin Er) 5 mg PO DAILY [facility] Last Admin: 10/14/18 08:53 Dose: 5 mg Potassium Chloride (Klor-Con M20) 20 meq PO BID [facility] Last Admin: 10/14/18 21:03 Dose: 20 meq Rosuvastatin Calcium (Crestor) 10 mg PO DAILY [facility] Last Admin: 10/14/18 08:53 Dose: 10 mg Discontinued Medications Aspirin (Halfprin) 81 mg PO DAILY [facility] Last Admin: 10/13/18 08:24 Dose: 81 mg Clonidine HCl (Catapres) 0.2 mg PO ONETIME ONE Stop: 10/12/18 22:59 Last Admin: 10/12/18 23:06 Dose: 0.2 mg Clopidogrel Bisulfate (Plavix) 300 mg PO ONETIME ONE Stop: 10/13/18 16:38 Last Admin: 10/13/18 17:26 Dose: 300 mg Clopidogrel Bisulfate (Plavix) 75 mg PO DAILY [facility] Dextrose/Water (Dextrose 50% In Water) 50 ml IVPUSH ASDIRECTED PRN PRN Reason: Hypoglycemia Hydralazine HCl (Apresoline) 20 mg IVPUSH Q4H PRN PRN Reason: Hypertension Sodium Chloride (Normal Saline) 1,000 mls @ 999 mls/hr IV ONETIME ONE Stop: 10/12/18 23:13 Last Admin: 10/12/18 22:25 Dose: 999 mls/hr Magnesium Sulfate 2 gm/ Premix 50 mls @ 25 mls/hr IV ONETIME ONE Stop: 10/13/18 11:20 Last Admin: 10/13/18 09:56 Dose: 25 mls/hr Magnesium Sulfate 2 gm/ Premix 50 mls @ 25 mls/hr IV ONETIME ONE Stop: 10/14/18 11:54 Last Admin: 10/14/18 11:46 Dose: 25 mls/hr Insulin Human Lispro (Humalog) 7 unit SUBCUT QIDACANDBED [facility] Last Admin: 10/14/18 17:44 Dose: Not Given - Exam Quality Assessment: DVT Prophylaxis General: Alert, Oriented, Cooperative, No Acute Distress HEENT: Pupils Equal, Pupils Reactive, EOMI, Mucous Membr. Moist/[place] Neck: Supple, Trachea Midline Lungs: Clear to Auscultation, Normal Respiratory Effort Cardiovascular: Regular Rate, Regular Rhythm GI/Abdominal Exam: Normal Bowel Sounds, Soft, Non-Tender, No Distention, No Abnormal Bruit (Female) Exam: Deferred Back Exam: Normal Inspection, Full Range of Motion Extremities: Normal Inspection, Normal Range of Motion, Non-Tender, No Pedal Edema, Normal Capillary Refill Neurological: Sensation Intact. No: Normal Gait, Normal Speech (somewhat slurred although improving ), Strength Equal Bilateral (continued right sided weakness ) Psy/Mental Status: Alert, Normal Affect, Normal Mood - Problem List & Annotations (1) CVA (cerebral vascular accident) SNOMED Code(s): 182890777 Code(s): I63.9 - CEREBRAL INFARCTION, UNSPECIFIED Status: Acute Priority : High Current Visit: Yes Qualifiers: CVA mechanism: unspecified Qualified Code(s): I63.9 - Cerebral infarction, unspecified (2) HTN (hypertension) SNOMED Code(s): 55351215 Code(s): I10 - ESSENTIAL (PRIMARY) HYPERTENSION Status: Acute Priority: High Current Visit: Yes Qualifiers: Hypertension type: unspecified Qualified Code(s): I10 - Essential (primary ) hypertension (3) Right leg weakness SNOMED Code(s): 476570417 Code(s): R29.898 - OTH SYMPTOMS AND SIGNS INVOLVING THE MUSCULOSKELETAL SYSTEM Status: Acute Priority: High Current Visit: Yes - Problem List Review Problem List Initiated/Reviewed/Updated: Yes - My Orders Last 24 Hours: My Active Orders 10/14/18 14:29 Neuro Check [RC] Q6H 10/14/18 17:00 cefTRIAXone [Rocephin] 2 gm Sodium Chloride 0.9% [Normal Saline] 100 ml IV Q24H 04/22/19 18:30 WBC, STOOL [OP] Routine 10/14/18 18:31 SHIGA TOXIN 1 & 2 [MREF] Routine 10/15/18 05:52 BASIC METABOLIC PANEL,BMP [CHEM] AM CBC WITH AUTO DIFF [HEME] AM MAGNESIUM [CHEM] AM 10/15/18 06:31 hydrALAZINE [Apresoline] 20 mg IVPUSH Q4H PRN 10/15/18 08:00 Brain wo Cont [MR] Routine 10/16/18 05:11 BASIC METABOLIC PANEL,BMP [CHEM] AM CBC WITH AUTO DIFF [HEME] AM MAGNESIUM [CHEM] AM 10/17/18 05:11 BASIC METABOLIC PANEL,BMP [CHEM] AM CBC WITH AUTO DIFF [HEME] AM MAGNESIUM [CHEM] AM 10/18/18 05:11 BASIC METABOLIC PANEL,BMP [CHEM] AM CBC WITH AUTO DIFF [HEME] AM MAGNESIUM [CHEM] AM - Plan Plan:: CVA * At this time it appears that she has had a right-sided stroke. This likely started on before she arrived at her son's house. * MRI of the brain 10/15/18: * Brain MRI notes fairly acute white matter infarct within the periventricular white matter at the temp poor oral parietal junction on the left side. Denies atrophy along with small vessel ischemic demyelination change. * She has a history of carotid stenosis, carotid artery Dopplers obtained * Echocardiogram obtained * Lipid panel: Triglycerides 121, total cholesterol 138, LDL 85, HDL 39. * PT, OT, speech therapy. * Discharge planning. She will likely need placement at least at a snf facility rehab stay * ASA daily Hypertension, improved * Patients hypertension over the last few days likely been worsened because of her CVA. Fortunately by not having all of her blood pressure medications were kept her blood pressure relatively high which is necessary in an acute CVA. She is now 3 days past the initial presentation and we can restart all her medications and bring down her blood pressure slowly. * Restart home medications, we have updated list. Type 2 diabetes insulin-dependent * Restart Lantus at half her normal dose. She will be started on 15 units a day. * Check blood sugars every before meals and daily at bedtime * Hemoglobin A1c yesterday was 10.6. Hyperlipidemia * Continue home meds. * Lipid panel as above Discharge planning for placement. Diabetic education.
[2018-10-15] MEDS ORDERED: Magnesium Sulfate/Water 2 GM in Premix Bag 1 BAG IV ONE (07:34)
[2018-10-15] MEDS: Citalopram 20 MG Tab PO SCH (09:05)
[2018-10-15] MEDS: Rosuvastatin 10 MG Tab PO SCH (09:05)
[2018-10-15] MEDS: Hydrochlorothiazide 12.5 MG Cap PO SCH (09:05)
[2018-10-15] MEDS: Insulin Lispro 100 Units/ML 3 ML Vial SUBCUT SCH ×4 (09:06→22:05)
[2018-10-15] MEDS: Potassium Chloride 20 MEQ Tab.ER PO SCH ×2 (09:06→20:46)
[2018-10-15] MEDS: amLODIPine 10 MG Tab PO SCH (09:06)
[2018-10-15] MEDS: Aspirin 325 MG Tab.EC PO SCH (09:06)
[2018-10-15] MEDS: Oxybutynin 5 MG Tab.ER PO SCH (09:07)
[2018-10-15] MEDS: Insulin Glarg,Human.Rec.Analog 100 UNIT/ML ML SUBCUT SCH (09:07)
[2018-10-15] MEDS: Cholecalciferol (Vitamin D3) 1,000 Unit Tab PO SCH (09:07)
--- NOTE | 2018-10-15 09:54 | MR ---
MRI brain Technique: T1 sagittal; T2, T2 FLAIR, T1 and diffusion axial; T1-weighted coronal; T2 gradient echo axial and coronal images through the brain were obtained. Comparison: Prior head CT study of 10/13/18. Findings: Ventricles along with basal cisterns and sulci over the convexities are mildly prominent. Normal signal void is seen within the major cerebral arteries within the skull base. Diffusion abnormality is seen within the left periventricular white matter at the temporoparietal junction compatible with fairly acute white matter infarct. This infarct is irreversible as it shows areas of increased signal on the T2 and FLAIR sequence. Other areas of increased signal are seen within the periventricular and subcortical white matter compatible with small vessel ischemic demyelination change. No other acute diffusion abnormalities are seen. No midline shift or mass effect is seen. Paranasal sinuses are clear. Impression: 1. Fairly acute white matter infarct within the periventricular white matter at the temporoparietal junction on the left side. This infarct appears irreversible as increased signal is seen on T2 and FLAIR sequences seen within this area. 2. Mild generalized atrophy. Small vessel ischemic demyelination change is noted as described above. Diagnostic code #3
[2018-10-15] MEDS: cefTRIAXone 2 GM in Sodium Chloride 0.9% 100 ML IV SCH (17:13)
[2018-10-15] MEDS: hydrALAZINE 20 MG/ML SDV IVPUSH PRN (20:48)
[2018-10-15] MEDS ORDERED: Terazosin 1 MG Cap PO SCH (21:00)
[2018-10-15] MEDS ORDERED: amLODIPine 10 MG Tab PO SCH (21:00)
[2018-10-16] MEDS: hydrALAZINE 20 MG/ML SDV IVPUSH PRN (05:40)
[2018-10-16] MEDS: hydrALAZINE 25 MG Tab PO SCH ×2 (06:51→16:21)
--- NOTE | 2018-10-16 06:57 | PCM.DCSUM1 ---
Discharge Summary - Discharge Data Discharge Date: 10/16/18 (Admit date: ) Discharge Disposition: DC/Tfer to SNF 03 Condition: Good - Discharge Diagnosis/Problem(s) (1) CVA (cerebral vascular accident) SNOMED Code(s): 932282190 ICD Code: I63.9 - CEREBRAL INFARCTION, UNSPECIFIED Status: Acute Priority : High Current Visit: Yes Qualifiers: CVA mechanism: unspecified Qualified Code(s): I63.9 - Cerebral infarction, unspecified (2) HTN (hypertension) SNOMED Code(s): 61253472 ICD Code: I10 - ESSENTIAL (PRIMARY) HYPERTENSION Status: Acute Priority: High Current Visit: Yes Qualifiers: Hypertension type: unspecified Qualified Code(s): I10 - Essential (primary ) hypertension (3) Right leg weakness SNOMED Code(s): 467834170 ICD Code: R29.898 - OTH SYMPTOMS AND SIGNS INVOLVING THE MUSCULOSKELETAL SYSTEM Status: Acute Priority: High Current Visit: Yes - Patient Summary/Data Consults: Consultations 10/12/18 23:23 Consult to Diabetic Nurse Specialist [CONS] Routine Consult to Clinical Informatics Spec [CONS] Routine 10/13/18 13:09 Consult to Case Management/Senior Specialist [CONS] Routine OT Evaluation and Treatment [CONS] Routine PT Evaluation and Treatment [CONS] Routine FORENSIC BALLISTICS EXPERT Evaluation and Treatment [CONS] Routine - Patient Instructions Diet: Heart Healthy Diet, Diabetic Diet Activity: As Tolerated Driving: Do Not Drive Showering/Bathing: May Shower Notify Provider of: Fever, Increased Pain, Nausea and/or Vomiting - Discharge Plan *PRESCRIPTION DRUG MONITORING PROGRAM REVIEWED*: Not Applicable *COPY OF PRESCRIPTION DRUG MONITORING REPORT IN PATIENT BRYAN: Not Applicable Home Medications: Home Meds Escitalopram [Lexapro] 20 mg PO DAILY 10/11/18 [History] Insulin Glargine,Hum.Rec.Anlog [Basaglar Kwikpen U-100] 34 units SUBCUT BEDTIME 10/11/18 [History] Oxybutynin [Oxybutynin ER] 5 mg PO DAILY 10/11/18 [History] atorvaSTATin [Lipitor] 40 mg PO DAILY 10/11/18 [History] hydrALAZINE [Apresoline] 25 mg PO Q8H 10/11/18 [History] Aspirin [Halfprin] 81 mg PO DAILY 10/12/18 [History] Benazepril HCl [Lotensin] 40 mg PO DAILY 10/12/18 [History] Cholecalciferol (Vitamin D3) [Vitamin D3] 1,000 unit PO DAILY 10/12/18 [History] Felodipine [Felodipine ER] 10 mg PO DAILY 10/12/18 [History] Glimepiride 8 mg PO ACBREAKFAST 10/12/18 [History] Insulin Aspart [NovoLOG] 14 unit TIDMEALS 10/12/18 [History] Potassium Chloride [Klor-Con M20] 20 meq PO BID 10/12/18 [History] hydroCHLOROthiazide [Hydrochlorothiazide] 12.5 mg PO DAILY 10/12/18 [History] metFORMIN [Glucophage] 850 mg PO BIDMEALS 10/12/18 [History] Oxygen Therapy Mode: Room Air Referrals: PCP,Not In Area [Primary Care Provider] - - Discharge Summary/Plan Comment DC Time >30 min.: Yes (45 minutes) - Patient Data Vitals - Most Recent: Last Vital Signs Temp 99.1 F 10/16/18 05:25 Pulse 104 H 10/16/18 05:25 Resp 14 10/16/18 05:25 BP 164/62 H 10/16/18 06:51 Pulse Ox 97 10/16/18 05:25 Weight - Most Recent: 178 lb I&O - Last 24 hours: Intake & Output 10/15/18 10/15/18 10/16/18 14:59 22:59 06:59 Intake Total 360 450 800 Balance 360 450 800 Lab Results - Last 24 hrs: Laboratory Results - last 24 hr 10/15/18 10/15/18 10/15/18 Range/Units 05:52 11:20 17:03 WBC (3.98-10.04) K/mm3 RBC (3.98-5.22) M/mm3 Hgb (11.2-15.7) gm/L Hct (34.1-44.9) % MCV (79.4-94.8) fl MCH (25.6-32.2) pg MCHC (32.2-35.5) g/dl RDW Std Deviation (36.4-46.3) fL Plt Count (182-369) K/mm3 MPV (9.4-12.3) fl Neut % (Auto) (34.0-71.1) % Lymph % (Auto) (19.3-51.7) % [place] % (Auto) (4.7-12.5) % Eos % (Auto) (0.7-5.8) Baso % (Auto) (0.1-1.2) % Neut # (Auto) (1.56-6.13) K/mm3 Lymph # (Auto) (1.18-3.74) K/mm3 [place] # (Auto) (0.24-0.36) K/mm3 Eos # (Auto) (0.04-0.36) K/mm3 Baso # (Auto) (0.01-0.08) K/mm3 Sodium 137 (136-145) mEq/L Potassium 4.3 (3.5-5.1) mEq/L Chloride 104 (98-107) mEq/L Carbon Dioxide 24 (21-32) mEq/L Anion Gap 13.3 (5-15) BUN 17 (7-18) mg/dL Creatinine 0.9 (0.55-1.02) mg/dL Est Cr Clr Drug Dosing 58.91 mL/min Estimated GFR (MDRD) > 60 (>60) mL/min BUN/Creatinine Ratio 18.9 H (14-18) Glucose 165 H (80-115) mg/dL POC Glucose 255 H 182 H (80-115) mg/dL Calcium 9.2 (8.5-10.1) mg/dL Magnesium 1.7 L (1.8-2.4) mg/dl 10/15/18 10/16/18 10/16/18 Range/Units 21:08 05:34 06:03 WBC 8.14 (3.98-10.04) K/mm3 RBC 4.44 (3.98-5.22) M/mm3 Hgb 13.4 (11.2-15.7) gm/L Hct 41.2 (34.1-44.9) % MCV 92.8 (79.4-94.8) fl MCH 30.2 (25.6-32.2) pg MCHC 32.5 (32.2-35.5) g/dl RDW Std Deviation 42.4 (36.4-46.3) fL Plt Count 339 (182-369) K/mm3 MPV 11.0 (9.4-12.3) fl Neut % (Auto) 64.7 (34.0-71.1) % Lymph % (Auto) 26.0 (19.3-51.7) % [place] % (Auto) 7.4 (4.7-12.5) % Eos % (Auto) 1.7 (0.7-5.8) Baso % (Auto) 0.1 (0.1-1.2) % Neut # (Auto) 5.26 (1.56-6.13) K/mm3 Lymph # (Auto) 2.12 (1.18-3.74) K/mm3 [place] # (Auto) 0.60 H (0.24-0.36) K/mm3 Eos # (Auto) 0.14 (0.04-0.36) K/mm3 Baso # (Auto) 0.01 (0.01-0.08) K/mm3 Sodium (136-145) mEq/L Potassium (3.5-5.1) mEq/L Chloride (98-107) mEq/L Carbon Dioxide (21-32) mEq/L Anion Gap (5-15) BUN (7-18) mg/dL Creatinine (0.55-1.02) mg/dL Est Cr Clr Drug Dosing mL/min Estimated GFR (MDRD) (>60) mL/min BUN/Creatinine Ratio (14-18) Glucose (80-115) mg/dL POC Glucose 185 H 181 H (80-115) mg/dL Calcium (8.5-10.1) mg/dL Magnesium (1.8-2.4) mg/dl FEDE Results - Last 24 hrs: Microbiology 10/12/18 23:11 Urine Culture - Preliminary Urine, Bladder Gram Positive Cocci Escherichia Coli Med Orders - Current: Current Medications Amlodipine Besylate (Norvasc) 10 mg PO DAILY [facility] Last Admin: 10/15/18 09:06 Dose: 10 mg Amlodipine Besylate (Norvasc) 10 mg PO BEDTIME [facility] Last Admin: 10/15/18 20:47 Dose: 10 mg Aspirin (Aspirin) 162 mg PO DAILY [facility] Benazepril HCl (Lotensin) 40 mg PO DAILY [facility] Last Admin: 10/15/18 09:02 Dose: 40 mg Cholecalciferol (Vitamin D3) 1,000 units PO DAILY [facility] Last Admin: 10/15/18 09:07 Dose: 1,000 units Citalopram Hydrobromide (Celexa) 40 mg PO DAILY [facility] Last Admin: 10/15/18 09:05 Dose: 40 mg Dextrose/Water (Dextrose 50% In Water) 50 ml IV ASDIRECTED PRN PRN Reason: Hypoglycemia Hydralazine HCl (Apresoline) 25 mg PO Q8H [facility] Last Admin: 10/16/18 06:51 Dose: 25 mg Hydralazine HCl (Apresoline) 20 mg IVPUSH Q4H PRN PRN Reason: Hypertension Last Admin: 10/16/18 05:40 Dose: 20 mg Hydrochlorothiazide (Hydrochlorothiazide) 12.5 mg PO DAILY [facility] Last Admin: 10/15/18 09:05 Dose: 12.5 mg Ceftriaxone Sodium 2 gm/ (Sodium Chloride) 100 mls @ 200 mls/hr IV Q24H [facility] Last Admin: 10/15/18 17:13 Dose: 200 mls/hr Insulin Glargine (Lantus) 15 unit SUBCUT DAILY [facility] Last Admin: 10/15/18 09:07 Dose: 15 units Insulin Human Lispro (Humalog) 0 unit SUBCUT QIDACANDBED [facility]; Protocol Last Admin: 10/15/18 22:05 Dose: 2 unit Magnesium Sulfate (Pharmacy To Dose - Magnesium Replacement) 1 dose .XX ASDIRECTED [facility] Magnesium Sulfate (Pharmacy To Dose - Magnesium Replacement) 1 dose .XX ASDIRECTED [facility] Metformin HCl (Glucophage) 850 mg PO BIDMEALS [facility] Last Admin: 10/16/18 06:51 Dose: 850 mg Oxybutynin Chloride (Oxybutynin Er) 5 mg PO DAILY [facility] Last Admin: 10/15/18 09:07 Dose: 5 mg Potassium Chloride (Klor-Con M20) 20 meq PO BID [facility] Last Admin: 10/15/18 20:46 Dose: 20 meq Potassium Chloride (Pharmacy To Dose - Potassium Replacement) 1 dose .XX ASDIRECTED [facility] Potassium Chloride (Pharmacy To Dose - Potassium Replacement) 1 dose .XX ASDIRECTED [facility] Rosuvastatin Calcium (Crestor) 10 mg PO DAILY [facility] Last Admin: 10/15/18 09:05 Dose: 10 mg Discontinued Medications Aspirin (Halfprin) 81 mg PO DAILY [facility] Last Admin: 10/13/18 08:24 Dose: 81 mg Aspirin (Ecotrin) 325 mg PO DAILY [facility] Last Admin: 10/15/18 09:06 Dose: 325 mg Clonidine HCl (Catapres) 0.2 mg PO ONETIME ONE Stop: 10/12/18 22:59 Last Admin: 10/12/18 23:06 Dose: 0.2 mg Clopidogrel Bisulfate (Plavix) 300 mg PO ONETIME ONE Stop: 10/13/18 16:38 Last Admin: 10/13/18 17:26 Dose: 300 mg Clopidogrel Bisulfate (Plavix) 75 mg PO DAILY [facility] Dextrose/Water (Dextrose 50% In Water) 50 ml IVPUSH ASDIRECTED PRN PRN Reason: Hypoglycemia Hydralazine HCl (Apresoline) 20 mg IVPUSH Q4H PRN PRN Reason: Hypertension Hydralazine HCl (Apresoline) 20 mg IVPUSH Q4H PRN PRN Reason: Hypertension Sodium Chloride (Normal Saline) 1,000 mls @ 999 mls/hr IV ONETIME ONE Stop: 10/12/18 23:13 Last Admin: 10/12/18 22:25 Dose: 999 mls/hr Magnesium Sulfate 2 gm/ Premix 50 mls @ 25 mls/hr IV ONETIME ONE Stop: 10/13/18 11:20 Last Admin: 10/13/18 09:56 Dose: 25 mls/hr Magnesium Sulfate 2 gm/ Premix 50 mls @ 25 mls/hr IV ONETIME ONE Stop: 10/14/18 11:54 Last Admin: 10/14/18 11:46 Dose: 25 mls/hr Magnesium Sulfate 2 gm/ Premix 50 mls @ 25 mls/hr IV ONETIME ONE Stop: 10/15/18 09:33 Last Admin: 10/15/18 09:08 Dose: 25 mls/hr Insulin Human Lispro (Humalog) 7 unit SUBCUT QIDACANDBED [facility] Last Admin: 10/14/18 17:44 Dose: Not Given Terazosin HCl (Hytrin) 1 mg PO BEDTIME [facility]
[2018-10-16] MEDS: Insulin Lispro 100 Units/ML 3 ML Vial SUBCUT SCH ×4 (09:19→21:09)
[2018-10-16] MEDS: Insulin Glarg,Human.Rec.Analog 100 UNIT/ML ML SUBCUT SCH (09:20)
[2018-10-16] MEDS: Citalopram 20 MG Tab PO SCH ×2 (09:22→11:39)
[2018-10-16] MEDS: Hydrochlorothiazide 12.5 MG Cap PO SCH ×3 (09:22→21:03)
[2018-10-16] MEDS: Cholecalciferol (Vitamin D3) 1,000 Unit Tab PO SCH ×2 (09:22→11:40)
[2018-10-16] MEDS: Potassium Chloride 20 MEQ Tab.ER PO SCH ×3 (09:22→21:03)
[2018-10-16] MEDS: amLODIPine 10 MG Tab PO SCH ×2 (09:22→14:07)
[2018-10-16] MEDS: Oxybutynin 5 MG Tab.ER PO SCH ×2 (09:22→11:40)
[2018-10-16] MEDS: Rosuvastatin 10 MG Tab PO SCH ×2 (09:22→11:39)
[2018-10-16] MEDS: Aspirin 81 MG Tab.Chew PO SCH ×2 (09:23→11:39)
[2018-10-16] MEDS ORDERED: Ondansetron 4 MG/2 ML SDV IVPUSH PRN ×2 (09:44→09:55)
--- NOTE | 2018-10-16 10:02 | PCM.PN ---
- General Info Date of Service: 10/16/18 Admission Dx/Problem (Free Text): Admission Diagnosis/Problem Admission Diagnosis/Problem Weakness Subjective Update: Sully was receiving her meds today and had episode of vomiting and nausea. Overnight nursing did note she was coughing with medications. We will make her nothing by mouth status for now and reorder speech eval. Plan was for discharge today however this will be put on hold. Troponin and CK-MB were checked along with 12-lead EKG. No concerns for ischemia. Chest x-ray was ordered to ensure no aspiration and this was clear of any acute findings. Blood pressure medications were adjusted and she has had good response to this. Hopeful for discharge tomorrow with further investigation of episode of vomiting and awaiting speech eval. Functional Status: Reports: Pain Controlled, Tolerating Diet, Ambulating, Urinating. Denies: New Symptoms - Review of Systems General: Reports: Weakness (improving ). Denies: No Symptoms, Fever, Fatigue, Malaise, Chills HEENT: Reports: No Symptoms. Denies: Headaches, Sore Throat Pulmonary: Reports: No Symptoms. Denies: Shortness of Breath, Cough, Sputum, Wheezing Cardiovascular: Reports: No Symptoms Gastrointestinal: Reports: Nausea, Vomiting, Other (Soft stools ). Denies: Abdominal Pain, Constipation, Diarrhea Genitourinary: Reports: No Symptoms. Denies: Pain Musculoskeletal: Reports: No Symptoms Skin: Reports: No Symptoms Neurological: Reports: Difficulty Walking, Weakness, Change in Speech (slurred ) , Gait Disturbance. Denies: Confusion, Dizziness, Headache, Numbness, Seizure, Syncope, Tingling Psychiatric: Reports: No Symptoms. Denies: Confusion - Patient Data Vitals - Most Recent: Last Vital Signs Temp 98.6 F 10/16/18 09:14 Pulse 107 H 10/16/18 09:14 Resp 20 10/16/18 09:14 BP 157/64 H 10/16/18 09:22 Pulse Ox 98 10/16/18 09:14 Weight - Most Recent: 178 lb I&O - Last 24 Hours: Intake & Output 10/15/18 10/16/18 10/16/18 22:59 06:59 14:59 Intake Total 450 800 Balance 450 800 Lab Results Last 24 Hours: Laboratory Results - last 24 hr 10/15/18 10/15/18 10/15/18 Range/Units 11:20 17:03 21:08 WBC (3.98-10.04) K/mm3 RBC (3.98-5.22) M/mm3 Hgb (11.2-15.7) gm/L Hct (34.1-44.9) % MCV (79.4-94.8) fl MCH (25.6-32.2) pg MCHC (32.2-35.5) g/dl RDW Std Deviation (36.4-46.3) fL Plt Count (182-369) K/mm3 MPV (9.4-12.3) fl Neut % (Auto) (34.0-71.1) % Lymph % (Auto) (19.3-51.7) % Baxter % (Auto) (4.7-12.5) % Eos % (Auto) (0.7-5.8) Baso % (Auto) (0.1-1.2) % Neut # (Auto) (1.56-6.13) K/mm3 Lymph # (Auto) (1.18-3.74) K/mm3 Baxter # (Auto) (0.24-0.36) K/mm3 Eos # (Auto) (0.04-0.36) K/mm3 Baso # (Auto) (0.01-0.08) K/mm3 Sodium (136-145) mEq/L Potassium (3.5-5.1) mEq/L Chloride (98-107) mEq/L Carbon Dioxide (21-32) mEq/L Anion Gap (5-15) BUN (7-18) mg/dL Creatinine (0.55-1.02) mg/dL Est Cr Clr Drug Dosing mL/min Estimated GFR (MDRD) (>60) mL/min BUN/Creatinine Ratio (14-18) Glucose (80-115) mg/dL POC Glucose 255 H 182 H 185 H (80-115) mg/dL Calcium (8.5-10.1) mg/dL Magnesium (1.8-2.4) mg/dl 10/16/18 10/16/18 10/16/18 Range/Units 05:34 05:34 06:03 WBC 8.14 (3.98-10.04) K/mm3 RBC 4.44 (3.98-5.22) M/mm3 Hgb 13.4 (11.2-15.7) gm/L Hct 41.2 (34.1-44.9) % MCV 92.8 (79.4-94.8) fl MCH 30.2 (25.6-32.2) pg MCHC 32.5 (32.2-35.5) g/dl RDW Std Deviation 42.4 (36.4-46.3) fL Plt Count 339 (182-369) K/mm3 MPV 11.0 (9.4-12.3) fl Neut % (Auto) 64.7 (34.0-71.1) % Lymph % (Auto) 26.0 (19.3-51.7) % Baxter % (Auto) 7.4 (4.7-12.5) % Eos % (Auto) 1.7 (0.7-5.8) Baso % (Auto) 0.1 (0.1-1.2) % Neut # (Auto) 5.26 (1.56-6.13) K/mm3 Lymph # (Auto) 2.12 (1.18-3.74) K/mm3 Baxter # (Auto) 0.60 H (0.24-0.36) K/mm3 Eos # (Auto) 0.14 (0.04-0.36) K/mm3 Baso # (Auto) 0.01 (0.01-0.08) K/mm3 Sodium 137 (136-145) mEq/L Potassium 4.3 (3.5-5.1) mEq/L Chloride 102 (98-107) mEq/L Carbon Dioxide 23 (21-32) mEq/L Anion Gap 16.3 H (5-15) BUN 15 (7-18) mg/dL Creatinine 1.0 (0.55-1.02) mg/dL Est Cr Clr Drug Dosing 53.01 mL/min Estimated GFR (MDRD) 55 (>60) mL/min BUN/Creatinine Ratio 15.0 (14-18) Glucose 166 H (80-115) mg/dL POC Glucose 181 H (80-115) mg/dL Calcium 9.4 (8.5-10.1) mg/dL Magnesium 1.8 (1.8-2.4) mg/dl Dev Results Last 24 Hours: Microbiology 10/12/18 23:11 Urine Culture - Final Urine, Bladder Enterococcus Faecalis Escherichia Coli Med Orders - Current: Current Medications Amlodipine Besylate (Norvasc) 10 mg PO DAILY [facility] Last Admin: 10/16/18 09:22 Dose: 10 mg Amlodipine Besylate (Norvasc) 10 mg PO BEDTIME [facility] Last Admin: 10/15/18 20:47 Dose: 10 mg Aspirin (Aspirin) 162 mg PO DAILY [facility] Benazepril HCl (Lotensin) 40 mg PO DAILY [facility] Last Admin: 10/16/18 09:21 Dose: 40 mg Cholecalciferol (Vitamin D3) 1,000 units PO DAILY [facility] Last Admin: 10/16/18 09:22 Dose: 1,000 units Citalopram Hydrobromide (Celexa) 40 mg PO DAILY [facility] Last Admin: 10/15/18 09:05 Dose: 40 mg Dextrose/Water (Dextrose 50% In Water) 50 ml IV ASDIRECTED PRN PRN Reason: Hypoglycemia Hydralazine HCl (Apresoline) 25 mg PO Q8H [facility] Last Admin: 10/16/18 06:51 Dose: 25 mg Hydralazine HCl (Apresoline) 20 mg IVPUSH Q4H PRN PRN Reason: Hypertension Last Admin: 10/16/18 05:40 Dose: 20 mg Hydrochlorothiazide (Hydrochlorothiazide) 12.5 mg PO DAILY [facility] Last Admin: 10/16/18 09:22 Dose: 12.5 mg Ceftriaxone Sodium 2 gm/ (Sodium Chloride) 100 mls @ 200 mls/hr IV Q24H [facility] Last Admin: 10/15/18 17:13 Dose: 200 mls/hr Insulin Glargine (Lantus) 15 unit SUBCUT DAILY [facility] Last Admin: 10/16/18 09:20 Dose: 15 units Insulin Human Lispro (Humalog) 0 unit SUBCUT QIDACANDBED [facility]; Protocol Last Admin: 10/16/18 09:19 Dose: 2 unit Magnesium Sulfate (Pharmacy To Dose - Magnesium Replacement) 0 dose .XX ASDIRECTED PRN PRN Reason: RX TO WATCH MAG Metformin HCl (Glucophage) 850 mg PO BIDMEALS [facility] Last Admin: 10/16/18 06:51 Dose: 850 mg Ondansetron HCl (Zofran) 4 mg IVPUSH Q6H PRN PRN Reason: Nausea/Vomiting Oxybutynin Chloride (Oxybutynin Er) 5 mg PO DAILY [facility] Last Admin: 10/16/18 09:22 Dose: 5 mg Potassium Chloride (Klor-Con M20) 20 meq PO BID [facility] Last Admin: 10/15/18 20:46 Dose: 20 meq Potassium Chloride (Pharmacy To Dose - Potassium Replacement) 0 dose .XX ASDIRECTED PRN PRN Reason: RX TO WATCH K Rosuvastatin Calcium (Crestor) 10 mg PO DAILY [facility] Last Admin: 10/16/18 09:22 Dose: 10 mg Discontinued Medications Aspirin (Halfprin) 81 mg PO DAILY [facility] Last Admin: 10/13/18 08:24 Dose: 81 mg Aspirin (Ecotrin) 325 mg PO DAILY [facility] Last Admin: 10/15/18 09:06 Dose: 325 mg Clonidine HCl (Catapres) 0.2 mg PO ONETIME ONE Stop: 10/12/18 22:59 Last Admin: 10/12/18 23:06 Dose: 0.2 mg Clopidogrel Bisulfate (Plavix) 300 mg PO ONETIME ONE Stop: 10/13/18 16:38 Last Admin: 10/13/18 17:26 Dose: 300 mg Clopidogrel Bisulfate (Plavix) 75 mg PO DAILY [facility] Dextrose/Water (Dextrose 50% In Water) 50 ml IVPUSH ASDIRECTED PRN PRN Reason: Hypoglycemia Hydralazine HCl (Apresoline) 20 mg IVPUSH Q4H PRN PRN Reason: Hypertension Hydralazine HCl (Apresoline) 20 mg IVPUSH Q4H PRN PRN Reason: Hypertension Sodium Chloride (Normal Saline) 1,000 mls @ 999 mls/hr IV ONETIME ONE Stop: 10/12/18 23:13 Last Admin: 10/12/18 22:25 Dose: 999 mls/hr Magnesium Sulfate 2 gm/ Premix 50 mls @ 25 mls/hr IV ONETIME ONE Stop: 10/13/18 11:20 Last Admin: 10/13/18 09:56 Dose: 25 mls/hr Magnesium Sulfate 2 gm/ Premix 50 mls @ 25 mls/hr IV ONETIME ONE Stop: 10/14/18 11:54 Last Admin: 10/14/18 11:46 Dose: 25 mls/hr Magnesium Sulfate 2 gm/ Premix 50 mls @ 25 mls/hr IV ONETIME ONE Stop: 10/15/18 09:33 Last Admin: 10/15/18 09:08 Dose: 25 mls/hr Insulin Human Lispro (Humalog) 7 unit SUBCUT QIDACANDBED [facility] Last Admin: 10/14/18 17:44 Dose: Not Given Magnesium Sulfate (Pharmacy To Dose - Magnesium Replacement) 1 dose .XX ASDIRECTED [facility] Ondansetron HCl (Zofran) 4 mg IVPUSH Q4H PRN PRN Reason: Nausea Potassium Chloride (Pharmacy To Dose - Potassium Replacement) 1 dose .XX ASDIRECTED [facility] Terazosin HCl (Hytrin) 1 mg PO BEDTIME [facility] - Exam Quality Assessment: DVT Prophylaxis General: Alert, Oriented, Cooperative, No Acute Distress HEENT: Pupils Equal, Pupils Reactive, EOMI, Mucous Membr. Moist/[place] Neck: Supple, Trachea Midline, No JVD Lungs: Clear to Auscultation, Normal Respiratory Effort Cardiovascular: Regular Rate, Tachycardia GI/Abdominal Exam: Normal Bowel Sounds, Soft, Non-Tender, No Organomegaly, No Distention (Female) Exam: Deferred Back Exam: Normal Inspection, Full Range of Motion Extremities: Normal Inspection, Normal Range of Motion, Non-Tender, No Pedal Edema, Normal Capillary Refill Peripheral Pulses: 3+: Radial (L), Radial (R), Dorsalis Pedis (L), Dorsalis Pedis (R) Skin: Warm, Dry, Intact Neurological: No New Focal Deficit, Normal Tone, Sensation Intact. No: Normal Gait, Normal Speech, Strength Equal Bilateral (Continued right sided weakness ) Psy/Mental Status: Alert, Normal Affect, Normal Mood - Problem List & Annotations (1) CVA (cerebral vascular accident) SNOMED Code(s): 697002130 Code(s): I63.9 - CEREBRAL INFARCTION, UNSPECIFIED Status: Acute Priority : High Current Visit: Yes Qualifiers: CVA mechanism: unspecified Qualified Code(s): I63.9 - Cerebral infarction, unspecified (2) HTN (hypertension) SNOMED Code(s): 98267728 Code(s): I10 - ESSENTIAL (PRIMARY) HYPERTENSION Status: Acute Priority: High Current Visit: Yes Qualifiers: Hypertension type: unspecified Qualified Code(s): I10 - Essential (primary ) hypertension (3) Right leg weakness SNOMED Code(s): 765224969 Code(s): R29.898 - OTH SYMPTOMS AND SIGNS INVOLVING THE MUSCULOSKELETAL SYSTEM Status: Acute Priority: High Current Visit: Yes (4) Nausea & vomiting SNOMED Code(s): 22383495 Code(s): R11.2 - NAUSEA WITH VOMITING, UNSPECIFIED Status: Acute Priority : High Current Visit: Yes Qualifiers: Vomiting type: unspecified Vomiting Intractability: non-intractable Qualified Code(s): R11.2 - Nausea with vomiting, unspecified - Problem List Review Problem List Initiated/Reviewed/Updated: Yes - My Orders Last 24 Hours: My Active Orders 10/15/18 15:42 hydrALAZINE [Apresoline] 20 mg IVPUSH Q4H PRN 10/15/18 21:00 amLODIPine [Norvasc] 10 mg PO BEDTIME 10/16/18 07:00 Pharmacy to Dose - Magnesium R [Pharmacy to Dose - Magnesium Replacement] 0 dose .XX ASDIRECTED PRN Pharmacy to Dose - Potassium R [Pharmacy to Dose - Potassium Replacement] 0 dose .XX ASDIRECTED PRN 10/16/18 09:00 Aspirin 162 mg PO DAILY 10/16/18 09:53 Consult to Speech Language Pathology [BUILDING ENGINEER Evaluation and Treatment] [CONS] Routine CKMB [CHEM] Stat TROPONIN I [CHEM] Stat 10/16/18 09:54 CXR [Chest 2V] [CR] Routine 10/16/18 09:55 Ondansetron [Zofran] 4 mg IVPUSH Q6H PRN 10/16/18 10:00 EKG 12 Lead [EKG Documentation Completion] [RC] STAT 10/16/18 Lunch NPO Now [Nothing per Oral Now Diet] [DIET] 10/17/18 05:11 BASIC METABOLIC PANEL,BMP [CHEM] AM CBC WITH AUTO DIFF [HEME] AM MAGNESIUM [CHEM] AM 10/18/18 05:11 BASIC METABOLIC PANEL,BMP [CHEM] AM CBC WITH AUTO DIFF [HEME] AM MAGNESIUM [CHEM] AM - Plan Plan:: CVA * At this time it appears that she has had a right-sided stroke. This likely started on before she arrived at her son's house. * MRI of the brain 10/15/18: * Brain MRI notes fairly acute white matter infarct within the periventricular white matter at the temp poor oral parietal junction on the left side. Denies atrophy along with small vessel ischemic demyelination change. * She has a history of carotid stenosis, carotid artery Dopplers obtained * Echocardiogram obtained * Lipid panel: Triglycerides 121, total cholesterol 138, LDL 85, HDL 39. * PT, OT, speech therapy. * Discharge planning. She will likely need placement at least at a nursing home facility rehab stay * ASA daily Hypertension, improved * Patients hypertension over the last few days likely been worsened because of her CVA. Fortunately by not having all of her blood pressure medications were kept her blood pressure relatively high which is necessary in an acute CVA. She is now 3 days past the initial presentation and we can restart all her medications and bring down her blood pressure slowly. * Restart home medications, we have updated list. Type 2 diabetes insulin-dependent * Restart Lantus at half her normal dose. She will be started on 15 units a day. * Check blood sugars every before meals and daily at bedtime * Hemoglobin A1c yesterday was 10.6. Hyperlipidemia * Continue home meds. * Lipid panel as above Nausea and vomiting * Episode of N&V while taking pills this AM * Single episode -sudden onset * HR noted to be 120s at that time * 12-lead obtained * Troponin and CKMB WNL * CXR obtained - nothing acute * No nausea since Discharge planning for placement. Diabetic education.
--- NOTE | 2018-10-16 10:50 | CR ---
Chest: Two views of the chest were obtained. Comparison: Prior chest x-ray of 10/11/18. Heart size and mediastinum are within normal limits. Lungs are clear. Slight scoliosis is noted within the spine. Flowing osteophytes are noted within the mid and lower thoracic spine. Impression: 1. Incidental findings. Nothing acute is seen. Diagnostic code #2
[2018-10-16] MEDS: cefTRIAXone 2 GM in Sodium Chloride 0.9% 100 ML IV SCH (17:51)
[2018-10-16] MEDS: amLODIPine 5 MG Tab PO SCH (21:02)
[2018-10-17] MEDS: hydrALAZINE 25 MG Tab PO SCH ×4 (00:08→23:50)
--- NOTE | 2018-10-17 06:40 | CT ---
Head CT Technique: Multiple axial sections through the brain were obtained. Intravenous contrast was not utilized. Comparison: Prior MRI of brain dated 10/15/18. Prior head CT study of 10/13/18. Findings: Well-defined low density finding is seen within the left periventricular white matter correlating to diffusion abnormality and previous MRI compatible with previous infarct. Other areas of diminished density are noted within the periventricular white matter compatible with small vessel ischemic demyelination change. No other abnormal parenchymal densities are seen. No evidence of intracranial hemorrhage. No midline shift or mass effect is seen. Bone window settings were reviewed which shows mild mucosal thickening within the sphenoid sinus. Carotid artery calcification is seen within the carotid siphon. No acute calvarial abnormality is seen. Impression: 1. Senescent change as noted above. No acute intracranial abnormality is appreciated. 2. No significant change is seen from prior MRI or head CT exam. Diagnostic code #2 I agree with preliminary report from [facility], finalized on 10/17/18, 2:15 AM Central Time
[2018-10-17] MEDS: Insulin Lispro 100 Units/ML 3 ML Vial SUBCUT SCH ×4 (06:59→21:09)
--- NOTE | 2018-10-17 09:13 | PCM.PN ---
- General Info Date of Service: 10/17/18 Admission Dx/Problem (Free Text): Admission Diagnosis/Problem Admission Diagnosis/Problem Weakness Subjective Update: In to see [facility]. CT scan was obtained last night over fear of worsening symptoms and was negative for any change. She remains essentially the same as other days. We discussed code status and she reports she would like to be a DNR/ DNI. We have adjusted her BP meds again hoping for better control although if reviewing trends her BP has been slowly improving. Functional Status: Reports: Pain Controlled, Tolerating Diet, Ambulating, Urinating. Denies: New Symptoms - Review of Systems General: Reports: Weakness. Denies: Fever, Fatigue, Malaise HEENT: Reports: No Symptoms. Denies: Headaches, Sore Throat Pulmonary: Reports: No Symptoms. Denies: Shortness of Breath, Pleuritic Chest Pain, Cough, Sputum, Wheezing Cardiovascular: Reports: No Symptoms. Denies: Chest Pain, Palpitations, Dyspnea on Exertion, Edema Gastrointestinal: Reports: No Symptoms. Denies: Abdominal Pain, Constipation, Diarrhea, Nausea, Vomiting Genitourinary: Reports: No Symptoms. Denies: Pain Musculoskeletal: Reports: No Symptoms Skin: Reports: No Symptoms. Denies: Cyanosis Neurological: Reports: Trouble Speaking (slurred speach ), Difficulty Walking, Gait Disturbance. Denies: Confusion, Dizziness, Headache, Numbness, Tingling Psychiatric: Reports: No Symptoms - Patient Data Vitals - Most Recent: Last Vital Signs Temp 98.8 F 10/17/18 04:00 Pulse 103 H 10/16/18 23:57 Resp 18 10/17/18 04:00 BP 152/64 H 10/17/18 06:59 Pulse Ox 96 10/16/18 23:57 Weight - Most Recent: 176 lb 4.8 oz I&O - Last 24 Hours: Intake & Output 10/16/18 10/17/18 10/17/18 22:59 06:59 14:59 Intake Total 0 Output Total 100 Balance -100 Lab Results Last 24 Hours: Laboratory Results - last 24 hr 10/16/18 10/16/18 10/16/18 Range/Units 10:11 11:00 17:45 WBC (3.98-10.04) K/mm3 RBC (3.98-5.22) M/mm3 Hgb (11.2-15.7) gm/L Hct (34.1-44.9) % MCV (79.4-94.8) fl MCH (25.6-32.2) pg MCHC (32.2-35.5) g/dl RDW Std Deviation (36.4-46.3) fL Plt Count (182-369) K/mm3 MPV (9.4-12.3) fl Neut % (Auto) (34.0-71.1) % Lymph % (Auto) (19.3-51.7) % Laurens % (Auto) (4.7-12.5) % Eos % (Auto) (0.7-5.8) Baso % (Auto) (0.1-1.2) % Neut # (Auto) (1.56-6.13) K/mm3 Lymph # (Auto) (1.18-3.74) K/mm3 Laurens # (Auto) (0.24-0.36) K/mm3 Eos # (Auto) (0.04-0.36) K/mm3 Baso # (Auto) (0.01-0.08) K/mm3 Sodium (136-145) mEq/L Potassium (3.5-5.1) mEq/L Chloride (98-107) mEq/L Carbon Dioxide (21-32) mEq/L Anion Gap (5-15) BUN (7-18) mg/dL Creatinine (0.55-1.02) mg/dL Est Cr Clr Drug Dosing mL/min Estimated GFR (MDRD) (>60) mL/min BUN/Creatinine Ratio (14-18) Glucose (80-115) mg/dL POC Glucose 213 H 124 H (80-115) mg/dL Calcium (8.5-10.1) mg/dL Magnesium (1.8-2.4) mg/dl CK-MB (CK-2) 1.3 (0-3.6) ng/ml Troponin I < 0.017 (0.00-0.056) ng/mL 10/16/18 10/17/18 10/17/18 Range/Units 21:08 06:12 06:15 WBC 8.70 (3.98-10.04) K/mm3 RBC 4.12 (3.98-5.22) M/mm3 Hgb 12.7 (11.2-15.7) gm/L Hct 39.2 (34.1-44.9) % MCV 95.1 H (79.4-94.8) fl MCH 30.8 (25.6-32.2) pg MCHC 32.4 (32.2-35.5) g/dl RDW Std Deviation 43.2 (36.4-46.3) fL Plt Count 315 (182-369) K/mm3 MPV 11.5 (9.4-12.3) fl Neut % (Auto) 64.4 (34.0-71.1) % Lymph % (Auto) 23.9 (19.3-51.7) % Laurens % (Auto) 9.1 (4.7-12.5) % Eos % (Auto) 2.1 (0.7-5.8) Baso % (Auto) 0.3 (0.1-1.2) % Neut # (Auto) 5.60 (1.56-6.13) K/mm3 Lymph # (Auto) 2.08 (1.18-3.74) K/mm3 Laurens # (Auto) 0.79 H (0.24-0.36) K/mm3 Eos # (Auto) 0.18 (0.04-0.36) K/mm3 Baso # (Auto) 0.03 (0.01-0.08) K/mm3 Sodium (136-145) mEq/L Potassium (3.5-5.1) mEq/L Chloride (98-107) mEq/L Carbon Dioxide (21-32) mEq/L Anion Gap (5-15) BUN (7-18) mg/dL Creatinine (0.55-1.02) mg/dL Est Cr Clr Drug Dosing mL/min Estimated GFR (MDRD) (>60) mL/min BUN/Creatinine Ratio (14-18) Glucose (80-115) mg/dL POC Glucose 133 H 143 H (80-115) mg/dL Calcium (8.5-10.1) mg/dL Magnesium (1.8-2.4) mg/dl CK-MB (CK-2) (0-3.6) ng/ml Troponin I (0.00-0.056) ng/mL 10/17/18 Range/Units 06:15 WBC (3.98-10.04) K/mm3 RBC (3.98-5.22) M/mm3 Hgb (11.2-15.7) gm/L Hct (34.1-44.9) % MCV (79.4-94.8) fl MCH (25.6-32.2) pg MCHC (32.2-35.5) g/dl RDW Std Deviation (36.4-46.3) fL Plt Count (182-369) K/mm3 MPV (9.4-12.3) fl Neut % (Auto) (34.0-71.1) % Lymph % (Auto) (19.3-51.7) % Laurens % (Auto) (4.7-12.5) % Eos % (Auto) (0.7-5.8) Baso % (Auto) (0.1-1.2) % Neut # (Auto) (1.56-6.13) K/mm3 Lymph # (Auto) (1.18-3.74) K/mm3 Laurens # (Auto) (0.24-0.36) K/mm3 Eos # (Auto) (0.04-0.36) K/mm3 Baso # (Auto) (0.01-0.08) K/mm3 Sodium 141 (136-145) mEq/L Potassium 4.9 (3.5-5.1) mEq/L Chloride 107 (98-107) mEq/L Carbon Dioxide 21 (21-32) mEq/L Anion Gap 17.9 H (5-15) BUN 25 H (7-18) mg/dL Creatinine 1.3 H (0.55-1.02) mg/dL Est Cr Clr Drug Dosing 40.78 mL/min Estimated GFR (MDRD) 40 (>60) mL/min BUN/Creatinine Ratio 19.2 H (14-18) Glucose 149 H (80-115) mg/dL POC Glucose (80-115) mg/dL Calcium 9.6 (8.5-10.1) mg/dL Magnesium 1.8 (1.8-2.4) mg/dl CK-MB (CK-2) (0-3.6) ng/ml Troponin I (0.00-0.056) ng/mL Dev Results Last 24 Hours: Microbiology 10/12/18 23:11 Urine Culture - Final Urine, Bladder Enterococcus Faecalis Escherichia Coli Med Orders - Current: Current Medications Amlodipine Besylate (Norvasc) 5 mg PO BID [facility] Last Admin: 10/16/18 21:02 Dose: 5 mg Aspirin (Aspirin) 162 mg PO DAILY [facility] Last Admin: 10/16/18 11:39 Dose: 162 mg Benazepril HCl (Lotensin) 40 mg PO DAILY [facility] [place] Last Admin: 10/16/18 09:30 Dose: 40 mg Cholecalciferol (Vitamin D3) 1,000 units PO DAILY [facility] Last Admin: 10/16/18 11:40 Dose: 1,000 units Citalopram Hydrobromide (Celexa) 40 mg PO DAILY [facility] Last Admin: 10/16/18 11:39 Dose: 40 mg Dextrose/Water (Dextrose 50% In Water) 50 ml IV ASDIRECTED PRN PRN Reason: Hypoglycemia Hydralazine HCl (Apresoline) 25 mg PO Q8H [facility] Last Admin: 10/17/18 06:59 Dose: 25 mg Hydralazine HCl (Apresoline) 20 mg IVPUSH Q4H PRN PRN Reason: Hypertension Last Admin: 10/16/18 05:40 Dose: 20 mg Hydrochlorothiazide (Hydrochlorothiazide) 12.5 mg PO BID [facility] Last Admin: 10/16/18 21:03 Dose: 12.5 mg Ceftriaxone Sodium 2 gm/ (Sodium Chloride) 100 mls @ 200 mls/hr IV Q24H [facility] Last Admin: 10/16/18 17:51 Dose: 200 mls/hr Insulin Glargine (Lantus) 15 unit SUBCUT DAILY [facility] Last Admin: 10/16/18 09:20 Dose: 15 units Insulin Human Lispro (Humalog) 0 unit SUBCUT QIDACANDBED [facility]; Protocol Last Admin: 10/17/18 06:59 Dose: Not Given Magnesium Sulfate (Pharmacy To Dose - Magnesium Replacement) 0 dose .XX ASDIRECTED PRN PRN Reason: RX TO WATCH MAG Metformin HCl (Glucophage) 850 mg PO BIDMEALS [facility] Last Admin: 10/17/18 06:59 Dose: 850 mg Ondansetron HCl (Zofran) 4 mg IVPUSH Q6H PRN PRN Reason: Nausea/Vomiting Last Admin: 10/16/18 18:07 Dose: 4 mg Oxybutynin Chloride (Oxybutynin Er) 5 mg PO DAILY [facility] [place] Last Admin: 10/16/18 11:40 Dose: 5 mg Potassium Chloride (Pharmacy To Dose - Potassium Replacement) 0 dose .XX ASDIRECTED PRN PRN Reason: RX TO WATCH K Rosuvastatin Calcium (Crestor) 10 mg PO DAILY [facility] Last Admin: 10/16/18 11:39 Dose: 10 mg Discontinued Medications Amlodipine Besylate (Norvasc) 10 mg PO DAILY [facility] [place] Last Admin: 10/16/18 14:07 Dose: Not Given Amlodipine Besylate (Norvasc) 10 mg PO BEDTIME [facility] Last Admin: 10/15/18 20:47 Dose: 10 mg Aspirin (Halfprin) 81 mg PO DAILY [facility] [place] Last Admin: 10/13/18 08:24 Dose: 81 mg Aspirin (Ecotrin) 325 mg PO DAILY [facility] [place] Last Admin: 10/15/18 09:06 Dose: 325 mg Clonidine HCl (Catapres) 0.2 mg PO ONETIME ONE Stop: 10/12/18 22:59 Last Admin: 10/12/18 23:06 Dose: 0.2 mg Clopidogrel Bisulfate (Plavix) 300 mg PO ONETIME ONE Stop: 10/13/18 16:38 Last Admin: 10/13/18 17:26 Dose: 300 mg Clopidogrel Bisulfate (Plavix) 75 mg PO DAILY [facility] [place] Dextrose/Water (Dextrose 50% In Water) 50 ml IVPUSH ASDIRECTED PRN PRN Reason: Hypoglycemia Hydralazine HCl (Apresoline) 20 mg IVPUSH Q4H PRN PRN Reason: Hypertension Hydralazine HCl (Apresoline) 20 mg IVPUSH Q4H PRN PRN Reason: Hypertension Hydrochlorothiazide (Hydrochlorothiazide) 12.5 mg PO DAILY [facility] [place] Last Admin: 10/16/18 14:07 Dose: Not Given Sodium Chloride (Normal Saline) 1,000 mls @ 999 mls/hr IV ONETIME ONE Stop: 10/12/18 23:13 Last Admin: 10/12/18 22:25 Dose: 999 mls/hr Magnesium Sulfate 2 gm/ Premix 50 mls @ 25 mls/hr IV ONETIME ONE Stop: 10/13/18 11:20 Last Admin: 10/13/18 09:56 Dose: 25 mls/hr Magnesium Sulfate 2 gm/ Premix 50 mls @ 25 mls/hr IV ONETIME ONE Stop: 10/14/18 11:54 Last Admin: 10/14/18 11:46 Dose: 25 mls/hr Magnesium Sulfate 2 gm/ Premix 50 mls @ 25 mls/hr IV ONETIME ONE Stop: 10/15/18 09:33 Last Admin: 10/15/18 09:08 Dose: 25 mls/hr Insulin Human Lispro (Humalog) 7 unit SUBCUT QIDACANDBED [facility] Last Admin: 10/14/18 17:44 Dose: Not Given Magnesium Sulfate (Pharmacy To Dose - Magnesium Replacement) 1 dose .XX ASDIRECTED [facility] Ondansetron HCl (Zofran) 4 mg IVPUSH Q4H PRN PRN Reason: Nausea Potassium Chloride (Klor-Con M20) 20 meq PO BID [facility] Last Admin: 10/16/18 21:03 Dose: 20 meq Potassium Chloride (Pharmacy To Dose - Potassium Replacement) 1 dose .XX ASDIRECTED [facility] Terazosin HCl (Hytrin) 1 mg PO BEDTIME [facility] - Exam Quality Assessment: DVT Prophylaxis General: Alert, Oriented, Cooperative, No Acute Distress HEENT: Pupils Equal, Pupils Reactive, EOMI, Mucous Membr. Moist/Chesaning Neck: Supple, Trachea Midline Lungs: Clear to Auscultation, Normal Respiratory Effort Cardiovascular: Regular Rate, Regular Rhythm GI/Abdominal Exam: Normal Bowel Sounds, Soft, Non-Tender, No Distention, No Abnormal Bruit (Female) Exam: Deferred Back Exam: Normal Inspection, Full Range of Motion Extremities: Normal Inspection, Normal Range of Motion, Non-Tender, No Pedal Edema, Normal Capillary Refill Peripheral Pulses: 2+: Radial (L), Radial (R), Dorsalis Pedis (L), Dorsalis Pedis (R) Skin: Warm, Dry, Intact Neurological: No New Focal Deficit, Sensation Intact. No: Normal Speech ( slurred ), Strength Equal Bilateral (Continued stable right sided weakness ) - Problem List & Annotations (1) CVA (cerebral vascular accident) SNOMED Code(s): 551245430 Code(s): I63.9 - CEREBRAL INFARCTION, UNSPECIFIED Status: Acute Priority : High Current Visit: Yes Qualifiers: CVA mechanism: unspecified Qualified Code(s): I63.9 - Cerebral infarction, unspecified (2) HTN (hypertension) SNOMED Code(s): 12400178 Code(s): I10 - ESSENTIAL (PRIMARY) HYPERTENSION Status: Acute Priority: High Current Visit: Yes Qualifiers: Hypertension type: unspecified Qualified Code(s): I10 - Essential (primary ) hypertension (3) Right leg weakness SNOMED Code(s): 589219957 Code(s): R29.898 - OTH SYMPTOMS AND SIGNS INVOLVING THE MUSCULOSKELETAL SYSTEM Status: Acute Priority: High Current Visit: Yes (4) Nausea & vomiting SNOMED Code(s): 53211392 Code(s): R11.2 - NAUSEA WITH VOMITING, UNSPECIFIED Status: Acute Priority : High Current Visit: Yes Qualifiers: Vomiting type: unspecified Vomiting Intractability: non-intractable Qualified Code(s): R11.2 - Nausea with vomiting, unspecified - Problem List Review Problem List Initiated/Reviewed/Updated: Yes - My Orders Last 24 Hours: My Active Orders 10/16/18 09:00 Aspirin 162 mg PO DAILY 10/16/18 09:53 Consult to Speech Language Pathology [[employer] Evaluation and Treatment] [CONS] Routine 10/16/18 09:55 Ondansetron [Zofran] 4 mg IVPUSH Q6H PRN 10/18/18 05:11 BASIC METABOLIC PANEL,BMP [CHEM] AM CBC WITH AUTO DIFF [HEME] AM MAGNESIUM [CHEM] AM - Plan Plan:: CVA * At this time it appears that she has had a right-sided stroke. This likely started on before she arrived at her son's house. * MRI of the brain 10/15/18: * Brain MRI notes fairly acute white matter infarct within the periventricular white matter at the temp poor oral parietal junction on the left side. Denies atrophy along with small vessel ischemic demyelination change. * She has a history of carotid stenosis, carotid artery Dopplers obtained * Echocardiogram obtained * Lipid panel: Triglycerides 121, total cholesterol 138, LDL 85, HDL 39. * PT, OT, speech therapy. * Discharge planning. She will likely need placement at least at a [facility] facility rehab stay * ASA daily Hypertension, slowly improving * Patients hypertension over the last few days likely been worsened because of her CVA. Fortunately by not having all of her blood pressure medications were kept her blood pressure relatively high which is necessary in an acute CVA. She is now 3 days past the initial presentation and we can restart all her medications and bring down her blood pressure slowly. * Restart home medications, we have updated list * Have increased home medications Type 2 diabetes insulin-dependent * Restart Lantus at half her normal dose. She will be started on 15 units a day. * Check blood sugars every before meals and daily at bedtime * Hemoglobin A1c yesterday was 10.6 Hyperlipidemia * Continue home meds. * Lipid panel as above Resolved: S/P Nausea and vomiting * Episode of N&V while taking pills this AM * Single episode -sudden onset * HR noted to be 120s at that time * 12-lead obtained * Troponin and CKMB WNL * CXR obtained - nothing acute * No nausea or vomiting since * [employer] changed to thickened liquids Discharge planning for placement. Diabetic education.
[2018-10-17] MEDS: Cholecalciferol (Vitamin D3) 1,000 Unit Tab PO SCH (09:42)
[2018-10-17] MEDS: Oxybutynin 5 MG Tab.ER PO SCH (09:42)
[2018-10-17] MEDS: Rosuvastatin 10 MG Tab PO SCH (09:42)
[2018-10-17] MEDS: Hydrochlorothiazide 12.5 MG Cap PO SCH ×2 (09:43→21:09)
[2018-10-17] MEDS: Aspirin 81 MG Tab.Chew PO SCH (09:43)
[2018-10-17] MEDS: Citalopram 20 MG Tab PO SCH (09:43)
[2018-10-17] MEDS: amLODIPine 5 MG Tab PO SCH ×2 (09:43→21:09)
[2018-10-17] MEDS: Insulin Glarg,Human.Rec.Analog 100 UNIT/ML ML SUBCUT SCH (09:59)
[2018-10-17] MEDS ORDERED: cloNIDine 0.3 MG/Day Transdermal Patch TRDERM ONE (11:05)
[2018-10-17] MEDS: cefTRIAXone 2 GM in Sodium Chloride 0.9% 100 ML IV SCH (18:45)
[2018-10-18] MEDS: hydrALAZINE 25 MG Tab PO SCH ×3 (06:14→15:22)
[2018-10-18] MEDS: amLODIPine 5 MG Tab PO SCH ×2 (08:30→20:54)
[2018-10-18] MEDS: Oxybutynin 5 MG Tab.ER PO SCH (08:30)
[2018-10-18] MEDS: Cholecalciferol (Vitamin D3) 1,000 Unit Tab PO SCH (08:30)
[2018-10-18] MEDS: Rosuvastatin 10 MG Tab PO SCH (08:30)
[2018-10-18] MEDS: Hydrochlorothiazide 12.5 MG Cap PO SCH ×2 (08:30→20:54)
[2018-10-18] MEDS: Citalopram 20 MG Tab PO SCH (08:30)
[2018-10-18] MEDS: Aspirin 81 MG Tab.Chew PO SCH (08:31)
[2018-10-18] MEDS: Insulin Glarg,Human.Rec.Analog 100 UNIT/ML ML SUBCUT SCH (08:36)
[2018-10-18] MEDS: Insulin Lispro 100 Units/ML 3 ML Vial SUBCUT SCH ×4 (08:36→21:00)
--- NOTE | 2018-10-18 08:40 | PCM.PN ---
- General Info Date of Service: 10/18/18 Admission Dx/Problem (Free Text): Admission Diagnosis/Problem Admission Diagnosis/Problem Weakness Subjective Update: In to see Sully with Dr. Sparks. Sully's son is at bedside. We discussed plan for discharge Sunday to SNF. Discussed new results and labs. No patient, family, or nursing concerns. Functional Status: Reports: Pain Controlled, Tolerating Diet, Ambulating. Denies: Urinating, New Symptoms - Review of Systems General: Reports: Weakness, Fatigue. Denies: Fever, Chills HEENT: Reports: No Symptoms. Denies: Headaches, Sore Throat Pulmonary: Reports: No Symptoms. Denies: Shortness of Breath, Pleuritic Chest Pain, Cough, Sputum Cardiovascular: Reports: No Symptoms. Denies: Edema Gastrointestinal: Denies: Abdominal Pain, Diarrhea, Nausea Genitourinary: Reports: No Symptoms. Denies: Pain Musculoskeletal: Reports: No Symptoms Skin: Reports: No Symptoms Neurological: Reports: Difficulty Walking, Weakness, Change in Speech (slurred ) , Gait Disturbance. Denies: Confusion Psychiatric: Reports: No Symptoms - Patient Data Vitals - Most Recent: Last Vital Signs Temp 98.2 F 10/17/18 23:50 Pulse 97 10/17/18 23:50 Resp 14 10/17/18 23:50 BP 144/54 H 10/18/18 08:30 Pulse Ox 95 10/17/18 23:50 Weight - Most Recent: 174 lb 12.8 oz I&O - Last 24 Hours: Intake & Output 10/17/18 10/18/18 10/18/18 22:59 06:59 14:59 Intake Total 90 400 Output Total 75 Balance 90 325 Lab Results Last 24 Hours: Laboratory Results - last 24 hr 10/17/18 10/17/18 10/17/18 Range/Units 11:34 17:27 21:04 WBC (3.98-10.04) K/mm3 RBC (3.98-5.22) M/mm3 Hgb (11.2-15.7) gm/L Hct (34.1-44.9) % MCV (79.4-94.8) fl MCH (25.6-32.2) pg MCHC (32.2-35.5) g/dl RDW Std Deviation (36.4-46.3) fL Plt Count (182-369) K/mm3 MPV (9.4-12.3) fl Neut % (Auto) (34.0-71.1) % Lymph % (Auto) (19.3-51.7) % [place] % (Auto) (4.7-12.5) % Eos % (Auto) (0.7-5.8) Baso % (Auto) (0.1-1.2) % Neut # (Auto) (1.56-6.13) K/mm3 Lymph # (Auto) (1.18-3.74) K/mm3 [place] # (Auto) (0.24-0.36) K/mm3 Eos # (Auto) (0.04-0.36) K/mm3 Baso # (Auto) (0.01-0.08) K/mm3 Sodium (136-145) mEq/L Potassium (3.5-5.1) mEq/L Chloride (98-107) mEq/L Carbon Dioxide (21-32) mEq/L Anion Gap (5-15) BUN (7-18) mg/dL Creatinine (0.55-1.02) mg/dL Est Cr Clr Drug Dosing mL/min Estimated GFR (MDRD) (>60) mL/min BUN/Creatinine Ratio (14-18) Glucose (80-115) mg/dL POC Glucose 242 H 159 H 260 H (80-115) mg/dL Calcium (8.5-10.1) mg/dL Magnesium (1.8-2.4) mg/dl 10/18/18 10/18/18 10/18/18 Range/Units 05:50 05:50 06:13 WBC 7.63 (3.98-10.04) K/mm3 RBC 4.19 (3.98-5.22) M/mm3 Hgb 12.8 (11.2-15.7) gm/L Hct 40.3 (34.1-44.9) % MCV 96.2 H (79.4-94.8) fl MCH 30.5 (25.6-32.2) pg MCHC 31.8 L (32.2-35.5) g/dl RDW Std Deviation 43.7 (36.4-46.3) fL Plt Count 304 (182-369) K/mm3 MPV 10.8 (9.4-12.3) fl Neut % (Auto) 62.3 (34.0-71.1) % Lymph % (Auto) 25.7 (19.3-51.7) % [place] % (Auto) 8.4 (4.7-12.5) % Eos % (Auto) 2.8 (0.7-5.8) Baso % (Auto) 0.7 (0.1-1.2) % Neut # (Auto) 4.76 (1.56-6.13) K/mm3 Lymph # (Auto) 1.96 (1.18-3.74) K/mm3 [place] # (Auto) 0.64 H (0.24-0.36) K/mm3 Eos # (Auto) 0.21 (0.04-0.36) K/mm3 Baso # (Auto) 0.05 (0.01-0.08) K/mm3 Sodium 142 (136-145) mEq/L Potassium 4.7 (3.5-5.1) mEq/L Chloride 106 (98-107) mEq/L Carbon Dioxide 27 (21-32) mEq/L Anion Gap 13.7 (5-15) BUN 33 H (7-18) mg/dL Creatinine 1.4 H (0.55-1.02) mg/dL Est Cr Clr Drug Dosing 37.87 mL/min Estimated GFR (MDRD) 37 (>60) mL/min BUN/Creatinine Ratio 23.6 H (14-18) Glucose 157 H (80-115) mg/dL POC Glucose 164 H (80-115) mg/dL Calcium 9.6 (8.5-10.1) mg/dL Magnesium 1.7 L (1.8-2.4) mg/dl Med Orders - Current: Current Medications Amlodipine Besylate (Norvasc) 5 mg PO BID [facility] Last Admin: 10/18/18 08:30 Dose: 5 mg Aspirin (Aspirin) 162 mg PO DAILY [facility] Last Admin: 10/18/18 08:31 Dose: 162 mg Benazepril HCl (Lotensin) 40 mg PO DAILY [facility] Last Admin: 10/18/18 08:30 Dose: 40 mg Cholecalciferol (Vitamin D3) 1,000 units PO DAILY [facility] Last Admin: 10/18/18 08:30 Dose: 1,000 units Citalopram Hydrobromide (Celexa) 40 mg PO DAILY [facility] Last Admin: 10/18/18 08:30 Dose: 40 mg Dextrose/Water (Dextrose 50% In Water) 50 ml IV ASDIRECTED PRN PRN Reason: Hypoglycemia Hydralazine HCl (Apresoline) 25 mg PO Q8H [facility] Last Admin: 10/18/18 06:33 Dose: Not Given Hydralazine HCl (Apresoline) 20 mg IVPUSH Q4H PRN PRN Reason: Hypertension Last Admin: 10/16/18 05:40 Dose: 20 mg Hydrochlorothiazide (Hydrochlorothiazide) 25 mg PO BID [facility] Last Admin: 10/18/18 08:30 Dose: 25 mg Ceftriaxone Sodium 2 gm/ (Sodium Chloride) 100 mls @ 200 mls/hr IV Q24H [facility] Last Admin: 10/17/18 18:45 Dose: 200 mls/hr Insulin Glargine (Lantus) 15 unit SUBCUT DAILY [facility] Last Admin: 10/18/18 08:36 Dose: 15 units Insulin Human Lispro (Humalog) 0 unit SUBCUT QIDACANDBED [facility]; Protocol Last Admin: 10/18/18 08:36 Dose: 2 unit Magnesium Sulfate (Pharmacy To Dose - Magnesium Replacement) 0 dose .XX ASDIRECTED PRN PRN Reason: RX TO WATCH MAG Metformin HCl (Glucophage) 850 mg PO BIDMEALS [facility] Last Admin: 10/18/18 06:14 Dose: 850 mg Miscellaneous Information (Remove Patch) 0 ea TRDERM Q7D [facility] Ondansetron HCl (Zofran) 4 mg IVPUSH Q6H PRN PRN Reason: Nausea/Vomiting Last Admin: 10/16/18 18:07 Dose: 4 mg Oxybutynin Chloride (Oxybutynin Er) 5 mg PO DAILY [facility] Last Admin: 10/18/18 08:30 Dose: 5 mg Potassium Chloride (Pharmacy To Dose - Potassium Replacement) 0 dose .XX ASDIRECTED PRN PRN Reason: RX TO WATCH K Rosuvastatin Calcium (Crestor) 10 mg PO DAILY [facility] Last Admin: 10/18/18 08:30 Dose: 10 mg Discontinued Medications Amlodipine Besylate (Norvasc) 10 mg PO DAILY [facility] Last Admin: 10/16/18 14:07 Dose: Not Given Amlodipine Besylate (Norvasc) 10 mg PO BEDTIME [facility] Last Admin: 10/15/18 20:47 Dose: 10 mg Aspirin (Halfprin) 81 mg PO DAILY [facility] Last Admin: 10/13/18 08:24 Dose: 81 mg Aspirin (Ecotrin) 325 mg PO DAILY [facility] Last Admin: 10/15/18 09:06 Dose: 325 mg Clonidine HCl (Catapres) 0.2 mg PO ONETIME ONE Stop: 10/12/18 22:59 Last Admin: 10/12/18 23:06 Dose: 0.2 mg Clonidine HCl (Catapres-Tts 3) 0.3 mg TRDERM Q7D ONE Stop: 10/17/18 11:06 Last Admin: 10/17/18 12:36 Dose: 0.3 mg Clopidogrel Bisulfate (Plavix) 300 mg PO ONETIME ONE Stop: 10/13/18 16:38 Last Admin: 10/13/18 17:26 Dose: 300 mg Clopidogrel Bisulfate (Plavix) 75 mg PO DAILY [facility] Dextrose/Water (Dextrose 50% In Water) 50 ml IVPUSH ASDIRECTED PRN PRN Reason: Hypoglycemia Hydralazine HCl (Apresoline) 20 mg IVPUSH Q4H PRN PRN Reason: Hypertension Hydralazine HCl (Apresoline) 20 mg IVPUSH Q4H PRN PRN Reason: Hypertension Hydrochlorothiazide (Hydrochlorothiazide) 12.5 mg PO DAILY [facility] Last Admin: 10/16/18 14:07 Dose: Not Given Hydrochlorothiazide (Hydrochlorothiazide) 12.5 mg PO BID [facility] Last Admin: 10/17/18 09:43 Dose: 12.5 mg Sodium Chloride (Normal Saline) 1,000 mls @ 999 mls/hr IV ONETIME ONE Stop: 10/12/18 23:13 Last Admin: 10/12/18 22:25 Dose: 999 mls/hr Magnesium Sulfate 2 gm/ Premix 50 mls @ 25 mls/hr IV ONETIME ONE Stop: 10/13/18 11:20 Last Admin: 10/13/18 09:56 Dose: 25 mls/hr Magnesium Sulfate 2 gm/ Premix 50 mls @ 25 mls/hr IV ONETIME ONE Stop: 10/14/18 11:54 Last Admin: 10/14/18 11:46 Dose: 25 mls/hr Magnesium Sulfate 2 gm/ Premix 50 mls @ 25 mls/hr IV ONETIME ONE Stop: 10/15/18 09:33 Last Admin: 10/15/18 09:08 Dose: 25 mls/hr Insulin Human Lispro (Humalog) 7 unit SUBCUT QIDACANDBED [facility] Last Admin: 10/14/18 17:44 Dose: Not Given Magnesium Sulfate (Pharmacy To Dose - Magnesium Replacement) 1 dose .XX ASDIRECTED [facility] Ondansetron HCl (Zofran) 4 mg IVPUSH Q4H PRN PRN Reason: Nausea Potassium Chloride (Klor-Con M20) 20 meq PO BID [facility] Last Admin: 10/16/18 21:03 Dose: 20 meq Potassium Chloride (Pharmacy To Dose - Potassium Replacement) 1 dose .XX ASDIRECTED [facility] Terazosin HCl (Hytrin) 1 mg PO BEDTIME [facility] - Exam Quality Assessment: DVT Prophylaxis General: Alert, Oriented, Cooperative, No Acute Distress HEENT: Pupils Equal, Pupils Reactive, EOMI, Mucous Membr. Moist/[place] Neck: Supple Lungs: Clear to Auscultation, Normal Respiratory Effort Cardiovascular: Regular Rate, Regular Rhythm GI/Abdominal Exam: Normal Bowel Sounds, Soft, Non-Tender, No Organomegaly, No Distention (Female) Exam: Deferred Back Exam: Normal Inspection, Full Range of Motion Extremities: Normal Inspection, Normal Range of Motion, Non-Tender, No Pedal Edema, Normal Capillary Refill Peripheral Pulses: 2+: Radial (L), Radial (R) Skin: Warm, Dry, Intact Neurological: No New Focal Deficit, Normal Tone, Sensation Intact. No: Normal Gait, Normal Speech (slurred ), Strength Equal Bilateral (continued right sided weakness ) - Problem List & Annotations (1) CVA (cerebral vascular accident) SNOMED Code(s): 183395205 Code(s): I63.9 - CEREBRAL INFARCTION, UNSPECIFIED Status: Acute Priority : High Current Visit: Yes Qualifiers: CVA mechanism: unspecified Qualified Code(s): I63.9 - Cerebral infarction, unspecified (2) HTN (hypertension) SNOMED Code(s): 10763073 Code(s): I10 - ESSENTIAL (PRIMARY) HYPERTENSION Status: Acute Priority: High Current Visit: Yes Qualifiers: Hypertension type: unspecified Qualified Code(s): I10 - Essential (primary ) hypertension (3) Right leg weakness SNOMED Code(s): 714984890 Code(s): R29.898 - OTH SYMPTOMS AND SIGNS INVOLVING THE MUSCULOSKELETAL SYSTEM Status: Acute Priority: High Current Visit: Yes (4) Nausea & vomiting SNOMED Code(s): 83394104 Code(s): R11.2 - NAUSEA WITH VOMITING, UNSPECIFIED Status: Acute Priority : High Current Visit: Yes Qualifiers: Vomiting type: unspecified Vomiting Intractability: non-intractable Qualified Code(s): R11.2 - Nausea with vomiting, unspecified (5) Hypomagnesemia SNOMED Code(s): 972646918 Code(s): E83.42 - HYPOMAGNESEMIA Status: Acute Priority: High Current Visit: Yes - Problem List Review Problem List Initiated/Reviewed/Updated: Yes - Plan Plan:: CVA * At this time it appears that she has had a right-sided stroke. This likely started on before she arrived at her son's house. * MRI of the brain 10/15/18: * Brain MRI notes fairly acute white matter infarct within the periventricular white matter at the temp poor oral parietal junction on the left side. Denies atrophy along with small vessel ischemic demyelination change. * She has a history of carotid stenosis, carotid artery Dopplers obtained * Echocardiogram obtained * Lipid panel: Triglycerides 121, total cholesterol 138, LDL 85, HDL 39. * PT, OT, speech therapy. * Discharge planning. She will likely need placement at least at a retirement facility rehab stay * ASA daily * Repeat MRI 10/18/18: Hypertension, slowly improving * Patients hypertension over the last few days likely been worsened because of her CVA. Fortunately by not having all of her blood pressure medications were kept her blood pressure relatively high which is necessary in an acute CVA. She is now 3 days past the initial presentation and we can restart all her medications and bring down her blood pressure slowly. * Restart home medications, we have updated list * Have increased home medications Type 2 diabetes insulin-dependent * Restart Lantus at half her normal dose. She will be started on 15 units a day. * Check blood sugars every before meals and daily at bedtime * Hemoglobin A1c yesterday was 10.6 Hyperlipidemia * Continue home meds. * Lipid panel as above Hypomagnesemia * Magnesium 1.7 * Pharmacy to monitor and supplement Resolved: S/P Nausea and vomiting * Episode of N&V while taking pills this AM * Single episode -sudden onset * HR noted to be 120s at that time * 12-lead obtained * Troponin and CKMB WNL * CXR obtained - nothing acute * No nausea or vomiting since * [employer] changed to thickened liquids Discharge planning for placement. Diabetic education. LOS >96 HRS pending placement
[2018-10-18] MEDS ORDERED: Magnesium Oxide 400 MG Tab PO ONE (09:00)
--- NOTE | 2018-10-18 12:20 | MR ---
MRI brain Technique: T1 sagittal; T2, T2 FLAIR, T1 and diffusion axial; T1 coronal; gradient echo axial and coronal images were obtained to the brain. Comparison: Prior MRI brain of 10/15/18. Findings: Continuing diffusion abnormality is noted within the periventricular white matter on the left side. This remains similar to previous MRI. This is compatible with fairly recent white matter acute infarct. No new areas of abnormal diffusion are seen. Scattered areas of increased signal are noted within the periventricular and subcortical white matter which are compatible with small vessel ischemic demyelination change which is stable from prior MRI. No other abnormal signal is seen within the brain parenchyma. No midline shift or mass effect is seen. Normal signal void is seen within the major cerebral arteries within the skull base Ventricles along the basal cisterns and sulci over the convexities are mildly prominent which are stable in appearance. Impression: 1. Stable diffusion abnormality within the left periventricular white matter compatible with relatively acute white matter infarct. 2. Small vessel ischemic demyelination change and generalized atrophy is seen which are stable. 3. No new abnormality is seen when compared to prior exam. Diagnostic code #3
[2018-10-19] MEDS: hydrALAZINE 25 MG Tab PO SCH ×4 (00:30→16:46)
--- NOTE | 2018-10-19 07:10 | PCM.PN ---
- General Info Date of Service: 10/19/18 Admission Dx/Problem (Free Text): Admission Diagnosis/Problem Admission Diagnosis/Problem Weakness Subjective Update: Follow Up Functional Status: Reports: Pain Controlled, Tolerating Diet, Ambulating, Urinating. Denies: New Symptoms - Review of Systems General: Denies: Fever, Chills HEENT: Reports: No Symptoms Pulmonary: Denies: Shortness of Breath Cardiovascular: Denies: Chest Pain, Dyspnea on Exertion, Lightheadedness Gastrointestinal: Denies: Abdominal Pain, Nausea, Vomiting Genitourinary: Reports: No Symptoms Musculoskeletal: Reports: No Symptoms Skin: Denies: Cyanosis, Diaphoresis, Bruising Neurological: Reports: Weakness, Gait Disturbance. Denies: Confusion Psychiatric: Denies: Depression, Anxiety, Agitation Systems Review Comment:: No significant overnight or acute issues. She slept well last night. She requires stand aid with standing, ambulation and activities. Her BS remains uncontrolled. - Patient Data Vitals - Most Recent: Last Vital Signs Temp 36.6 C 10/19/18 03:54 Pulse 68 10/19/18 03:54 Resp 12 10/19/18 03:54 BP 128/92 H 10/19/18 06:20 Pulse Ox 92 L 10/19/18 03:54 Weight - Most Recent: 79.424 kg I&O - Last 24 Hours: Intake & Output 10/18/18 10/19/18 10/19/18 22:59 06:59 14:59 Intake Total 150 240 Balance 150 240 Lab Results Last 24 Hours: Laboratory Results - last 24 hr 10/18/18 10/18/18 10/18/18 Range/Units 11:11 16:50 20:53 POC Glucose 271 H 168 H 192 H (80-115) mg/dL 10/19/18 Range/Units 06:19 POC Glucose 166 H (80-115) mg/dL Med Orders - Current: Current Medications Amlodipine Besylate (Norvasc) 5 mg PO BID [facility] Last Admin: 10/18/18 20:54 Dose: 5 mg Aspirin (Aspirin) 162 mg PO DAILY [facility] Last Admin: 10/18/18 08:31 Dose: 162 mg Benazepril HCl (Lotensin) 40 mg PO DAILY [facility] Last Admin: 10/18/18 08:30 Dose: 40 mg Cholecalciferol (Vitamin D3) 1,000 units PO DAILY [facility] Last Admin: 10/18/18 08:30 Dose: 1,000 units Citalopram Hydrobromide (Celexa) 40 mg PO DAILY [facility] Last Admin: 10/18/18 08:30 Dose: 40 mg Dextrose/Water (Dextrose 50% In Water) 50 ml IV ASDIRECTED PRN PRN Reason: Hypoglycemia Hydralazine HCl (Apresoline) 25 mg PO Q8H [facility] Last Admin: 10/19/18 06:20 Dose: 25 mg Hydralazine HCl (Apresoline) 20 mg IVPUSH Q4H PRN PRN Reason: Hypertension Last Admin: 10/16/18 05:40 Dose: 20 mg Hydrochlorothiazide (Hydrochlorothiazide) 25 mg PO BID [facility] Last Admin: 10/18/18 20:54 Dose: 25 mg Insulin Glargine (Lantus) 15 unit SUBCUT DAILY [facility] Last Admin: 10/18/18 08:36 Dose: 15 units Insulin Human Lispro (Humalog) 0 unit SUBCUT QIDACANDBED [facility]; Protocol Last Admin: 10/18/18 21:00 Dose: 2 unit Magnesium Sulfate (Pharmacy To Dose - Magnesium Replacement) 0 dose .XX ASDIRECTED PRN PRN Reason: RX TO WATCH MAG Metformin HCl (Glucophage) 850 mg PO BIDMEALS [facility] Last Admin: 10/19/18 06:21 Dose: 850 mg Miscellaneous Information (Remove Patch) 0 ea TRDERM Q7D [facility] Ondansetron HCl (Zofran) 4 mg IVPUSH Q6H PRN PRN Reason: Nausea/Vomiting Last Admin: 10/16/18 18:07 Dose: 4 mg Oxybutynin Chloride (Oxybutynin Er) 5 mg PO DAILY [facility] Last Admin: 10/18/18 08:30 Dose: 5 mg Potassium Chloride (Pharmacy To Dose - Potassium Replacement) 0 dose .XX ASDIRECTED PRN PRN Reason: RX TO WATCH K Rosuvastatin Calcium (Crestor) 10 mg PO DAILY [facility] Last Admin: 10/18/18 08:30 Dose: 10 mg Discontinued Medications Amlodipine Besylate (Norvasc) 10 mg PO DAILY [facility] Last Admin: 10/16/18 14:07 Dose: Not Given Amlodipine Besylate (Norvasc) 10 mg PO BEDTIME [facility] Last Admin: 10/15/18 20:47 Dose: 10 mg Aspirin (Halfprin) 81 mg PO DAILY [facility] Last Admin: 10/13/18 08:24 Dose: 81 mg Aspirin (Ecotrin) 325 mg PO DAILY [facility] Last Admin: 10/15/18 09:06 Dose: 325 mg Clonidine HCl (Catapres) 0.2 mg PO ONETIME ONE Stop: 10/12/18 22:59 Last Admin: 10/12/18 23:06 Dose: 0.2 mg Clonidine HCl (Catapres-Tts 3) 0.3 mg TRDERM Q7D ONE Stop: 10/17/18 11:06 Last Admin: 10/17/18 12:36 Dose: 0.3 mg Clopidogrel Bisulfate (Plavix) 300 mg PO ONETIME ONE Stop: 10/13/18 16:38 Last Admin: 10/13/18 17:26 Dose: 300 mg Clopidogrel Bisulfate (Plavix) 75 mg PO DAILY [facility] Dextrose/Water (Dextrose 50% In Water) 50 ml IVPUSH ASDIRECTED PRN PRN Reason: Hypoglycemia Hydralazine HCl (Apresoline) 20 mg IVPUSH Q4H PRN PRN Reason: Hypertension Hydralazine HCl (Apresoline) 20 mg IVPUSH Q4H PRN PRN Reason: Hypertension Hydrochlorothiazide (Hydrochlorothiazide) 12.5 mg PO DAILY [facility] Last Admin: 10/16/18 14:07 Dose: Not Given Hydrochlorothiazide (Hydrochlorothiazide) 12.5 mg PO BID [facility] Last Admin: 10/17/18 09:43 Dose: 12.5 mg Sodium Chloride (Normal Saline) 1,000 mls @ 999 mls/hr IV ONETIME ONE Stop: 10/12/18 23:13 Last Admin: 10/12/18 22:25 Dose: 999 mls/hr Magnesium Sulfate 2 gm/ Premix 50 mls @ 25 mls/hr IV ONETIME ONE Stop: 10/13/18 11:20 Last Admin: 10/13/18 09:56 Dose: 25 mls/hr Magnesium Sulfate 2 gm/ Premix 50 mls @ 25 mls/hr IV ONETIME ONE Stop: 10/14/18 11:54 Last Admin: 10/14/18 11:46 Dose: 25 mls/hr Ceftriaxone Sodium 2 gm/ (Sodium Chloride) 100 mls @ 200 mls/hr IV Q24H [facility] Last Admin: 10/17/18 18:45 Dose: 200 mls/hr Magnesium Sulfate 2 gm/ Premix 50 mls @ 25 mls/hr IV ONETIME ONE Stop: 10/15/18 09:33 Last Admin: 10/15/18 09:08 Dose: 25 mls/hr Insulin Human Lispro (Humalog) 7 unit SUBCUT QIDACANDBED [facility] Last Admin: 10/14/18 17:44 Dose: Not Given Magnesium Oxide (Magnesium Oxide) 800 mg PO ONETIME ONE Stop: 10/18/18 09:01 Last Admin: 10/18/18 09:41 Dose: 800 mg Magnesium Sulfate (Pharmacy To Dose - Magnesium Replacement) 1 dose .XX ASDIRECTED [facility] Ondansetron HCl (Zofran) 4 mg IVPUSH Q4H PRN PRN Reason: Nausea Potassium Chloride (Klor-Con M20) 20 meq PO BID [facility] Last Admin: 10/16/18 21:03 Dose: 20 meq Potassium Chloride (Pharmacy To Dose - Potassium Replacement) 1 dose .XX ASDIRECTED [facility] Terazosin HCl (Hytrin) 1 mg PO BEDTIME [facility] - Exam General: Alert, Oriented, Cooperative, No Acute Distress HEENT: Pupils Equal, Pupils Reactive, EOMI, Mucous Membr. Moist/[place] Neck: Supple Lungs: Clear to Auscultation, Normal Respiratory Effort Cardiovascular: Regular Rhythm GI/Abdominal Exam: Normal Bowel Sounds, Soft, Non-Tender, No Organomegaly, No Distention, No Abnormal Bruit, No Mass, Pelvis Stable (Female) Exam: Deferred Back Exam: Normal Inspection, Full Range of Motion Extremities: Normal Inspection, Normal Range of Motion, Non-Tender, No Pedal Edema, Normal Capillary Refill Peripheral Pulses: 1+: Dorsalis Pedis (L), Dorsalis Pedis (R), 2+: Radial (L), Radial (R) Skin: Warm, Dry, Intact Neurological: No New Focal Deficit, Other (right sided weakness). No: Normal Gait, Normal Speech Psy/Mental Status: Alert, Normal Affect, Normal Mood - Problem List Review Problem List Initiated/Reviewed/Updated: Yes - My Orders Last 24 Hours: My Active Orders 10/24/18 11:15 Remove Patch 0 ea TRDERM Q7D - Plan Plan:: CVA * At this time it appears that she has had a right-sided stroke. This likely started on before she arrived at her son's house. * MRI of the brain 10/15/18: * Brain MRI notes fairly acute white matter infarct within the periventricular white matter at the temp poor oral parietal junction on the left side. Denies atrophy along with small vessel ischemic demyelination change. * She has a history of carotid stenosis, carotid artery Dopplers obtained * Echocardiogram obtained * Lipid panel: Triglycerides 121, total cholesterol 138, LDL 85, HDL 39. * PT, OT, speech therapy. * Discharge planning. She will likely need placement at least at a retirement facility rehab stay * ASA and Statin DAily * Repeat MRI 10/18/18: Hypertension, Improved * Patients hypertension over the last few days likely been worsened because of her CVA. Fortunately by not having all of her blood pressure medications were kept her blood pressure relatively high which is necessary in an acute CVA. She is now 3 days past the initial presentation and we can restart all her medications and bring down her blood pressure slowly. * She is now on Norvasc 5 mg po BID, HCTZ 25 mg po BID, Hydralazine 25 mg po Q8H , and Lotensin 40 mg po Daily Type 2 diabetes insulin-dependent * BS remains uncontrolled * Continue LA Insulin and Home Dose Metformin; Increased ISS to high level * Added low dose Glucotrol 2.5 mg po BID * Check blood sugars every before meals and daily at bedtime * Hemoglobin A1c yesterday was 10.6 * Offered SGLT2 and GLP1 inhibitors for mainstay treatment; she will benefit with her recent stroke; reading materials provided * Discussed potential risk and benefits with her; she will let me know Hyperlipidemia, Stable * Continue home meds * Lipid panel as above; now on Crestor 10 mg po daily Generalized Weakness * 2/2 Stroke Resolved: S/P Nausea and vomiting * Episode of N&V while taking pills this AM * Single episode -sudden onset * HR noted to be 120s at that time * 12-lead obtained * Troponin and CKMB WNL * CXR obtained - nothing acute * No nausea or vomiting since * [employer]OR changed to thickened liquids Hypomagnesemia * Likely resolved * Magnesium 1.7 * Pharmacy to monitor and supplement Discharge planning for placement. Diabetic education. She remains clinically stable Provided reading materials for SGLT2/GLP1 inhibitors as main treatment of her longstanding DM2. These drugs according to studies would cut down cardiovascular risk by combined 60%. SGLT2 will also help with blood pressure control. Patient will let me know. LOS >96 HRS pending placement
[2018-10-19] MEDS: Aspirin 81 MG Tab.Chew PO SCH (08:54)
[2018-10-19] MEDS: Rosuvastatin 10 MG Tab PO SCH (08:56)
[2018-10-19] MEDS: Cholecalciferol (Vitamin D3) 1,000 Unit Tab PO SCH (08:56)
[2018-10-19] MEDS: Hydrochlorothiazide 12.5 MG Cap PO SCH ×2 (08:56→21:54)
[2018-10-19] MEDS: amLODIPine 5 MG Tab PO SCH ×2 (08:56→21:54)
[2018-10-19] MEDS: Citalopram 20 MG Tab PO SCH (08:58)
[2018-10-19] MEDS: Oxybutynin 5 MG Tab.ER PO SCH (08:58)
[2018-10-19] MEDS: Insulin Glarg,Human.Rec.Analog 100 UNIT/ML ML SUBCUT SCH (09:04)
[2018-10-19] MEDS: Insulin Lispro 100 Units/ML 3 ML Vial SUBCUT SCH ×4 (09:07→21:40)
[2018-10-19] MEDS: glipiZIDE 2.5 MG Tab.ER PO SCH (20:32)
--- NOTE | 2018-10-19 21:32 | CT ---
Head CT Technique: Multiple axial sections through the brain were obtained. Intravenous contrast was not utilized. Comparison: Right MRI brain dated 10/18/[address] study of 10/17/18. Findings: White matter infarct is again seen within the left periventricular white matter. Other areas of diminished density within the periventricular white matter are compatible with small vessel ischemic demyelination change. Low density finding is seen between the top of the cerebellum and occipital lobe which is believed to be due to partial volume averaging from slightly prominent CSF space secondary to mild atrophy of the cerebellum. No new areas of abnormal density are seen. No intracranial hemorrhage. No midline shift or mass effect is seen. Bone window settings were reviewed which shows no acute calvarial abnormality. Mild mucosal thickening is seen within the sphenoid sinuses which appear stable. Impression: 1. Stable noncontrast CT exam as described above. No new abnormality is appreciated. For evaluation of new ischemic infarct, MRI could be considered with diffusion. Diagnostic code #3
--- NOTE | 2018-10-19 21:40 | PCM.SN ---
- Free Text/Narrative Note: Was informed by night nurse, patient was having right upper hand weakness more than usual. CT scan was ordered but imaging report gave no details regarding new acute stroke. However radiologist recommended MRI. We could not do this study because of non availability of it on weekend. Offered to transfer her to [place] but patient refused it. So we called on-call Neurology and spoke to Dr. Cohen(?). We went over her clinical status and he recommended to monitor her pressure, monitor e-lytes and correct glucose if necessary. Also to give Plavix if already on ASA. Patient so far has received a one time bolus of 500 ml NS and all her BP medications were adjusted and held with parameters.
[2018-10-19] MEDS ORDERED: Sodium Chloride 0.9% 500 ML ONE (22:21)
[2018-10-19] MEDS ORDERED: Clopidogrel 75 MG Tab ONE (23:06)
[2018-10-20] MEDS: hydrALAZINE 25 MG Tab PO SCH ×3 (00:30→20:46)
[2018-10-20] MEDS ORDERED: Sodium Chloride 0.9% 500 ML IV ONE (03:15)
[2018-10-20] MEDS ORDERED: Clopidogrel 75 MG Tab PO ONE (03:30)
[2018-10-20] MEDS: Insulin Lispro 100 Units/ML 3 ML Vial SUBCUT SCH ×4 (06:49→21:56)
--- NOTE | 2018-10-20 09:20 | PCM.PN ---
- General Info Date of Service: 10/20/18 Admission Dx/Problem (Free Text): Admission Diagnosis/Problem Admission Diagnosis/Problem Weakness Subjective Update: Follow Up Functional Status: Reports: Pain Controlled, Tolerating Diet, Ambulating, Urinating. Denies: New Symptoms - Review of Systems General: Reports: Weakness. Denies: Fever, Chills HEENT: Reports: No Symptoms Pulmonary: Denies: Shortness of Breath Cardiovascular: Denies: Chest Pain Gastrointestinal: Denies: Abdominal Pain, Nausea, Vomiting Genitourinary: Reports: No Symptoms Musculoskeletal: Reports: No Symptoms Skin: Denies: Cyanosis, Mottled, Pallor, Diaphoresis, Bruising Neurological: Reports: Difficulty Walking, Weakness (right sided), Gait Disturbance, Other (right: flaccid) Psychiatric: Denies: Depression, Anxiety, Agitation, Hallucinations Systems Review Comment:: Had worsening right upper extremity weakness. Repeat CT scan revealed no new acute CVA. We could not do MRI I on weekend so I offered transfer to [place]. Patient refused it. Spoke to [facility], and the specialist recommended plavix, correcting blood pressure and metabolic abnormality. So far her CBC is stable and pressure has improved. Her BS is fairly controlled. No new complaints this AM. - Patient Data Vitals - Most Recent: Last Vital Signs Temp 36.6 C 10/20/18 04:00 Pulse 66 10/20/18 04:00 Resp 20 10/20/18 04:00 BP 111/69 10/20/18 04:00 Pulse Ox 96 10/20/18 04:00 Weight - Most Recent: 82.735 kg I&O - Last 24 Hours: Intake & Output 10/19/18 10/20/18 10/20/18 22:59 06:59 14:59 Intake Total 100 620 Output Total 0 Balance 100 620 Lab Results Last 24 Hours: Laboratory Results - last 24 hr 10/19/18 10/19/18 10/19/18 Range/Units 11:09 16:47 20:07 WBC (3.98-10.04) K/mm3 RBC (3.98-5.22) M/mm3 Hgb (11.2-15.7) gm/L Hct (34.1-44.9) % MCV (79.4-94.8) fl MCH (25.6-32.2) pg MCHC (32.2-35.5) g/dl RDW Std Deviation (36.4-46.3) fL Plt Count (182-369) K/mm3 MPV (9.4-12.3) fl Neut % (Auto) (34.0-71.1) % Lymph % (Auto) (19.3-51.7) % [place] % (Auto) (4.7-12.5) % Eos % (Auto) (0.7-5.8) Baso % (Auto) (0.1-1.2) % Neut # (Auto) (1.56-6.13) K/mm3 Lymph # (Auto) (1.18-3.74) K/mm3 [place] # (Auto) (0.24-0.36) K/mm3 Eos # (Auto) (0.04-0.36) K/mm3 Baso # (Auto) (0.01-0.08) K/mm3 POC Glucose 240 H 178 H 160 H (80-115) mg/dL Magnesium (1.8-2.4) mg/dl NT-Pro-B Natriuret Pep (0-125) pg/mL 10/19/18 10/19/18 10/19/18 Range/Units 22:30 22:30 22:30 WBC 6.56 (3.98-10.04) K/mm3 RBC 3.89 L (3.98-5.22) M/mm3 Hgb 11.9 (11.2-15.7) gm/L Hct 37.0 (34.1-44.9) % MCV 95.1 H (79.4-94.8) fl MCH 30.6 (25.6-32.2) pg MCHC 32.2 (32.2-35.5) g/dl RDW Std Deviation 42.2 (36.4-46.3) fL Plt Count 264 (182-369) K/mm3 MPV 10.8 (9.4-12.3) fl Neut % (Auto) 62.3 (34.0-71.1) % Lymph % (Auto) 24.7 (19.3-51.7) % [place] % (Auto) 9.5 (4.7-12.5) % Eos % (Auto) 3.0 (0.7-5.8) Baso % (Auto) 0.3 (0.1-1.2) % Neut # (Auto) 4.09 (1.56-6.13) K/mm3 Lymph # (Auto) 1.62 (1.18-3.74) K/mm3 [place] # (Auto) 0.62 H (0.24-0.36) K/mm3 Eos # (Auto) 0.20 (0.04-0.36) K/mm3 Baso # (Auto) 0.02 (0.01-0.08) K/mm3 POC Glucose (80-115) mg/dL Magnesium 2.0 (1.8-2.4) mg/dl NT-Pro-B Natriuret Pep 160 H (0-125) pg/mL 10/20/18 Range/Units 06:02 WBC (3.98-10.04) K/mm3 RBC (3.98-5.22) M/mm3 Hgb (11.2-15.7) gm/L Hct (34.1-44.9) % MCV (79.4-94.8) fl MCH (25.6-32.2) pg MCHC (32.2-35.5) g/dl RDW Std Deviation (36.4-46.3) fL Plt Count (182-369) K/mm3 MPV (9.4-12.3) fl Neut % (Auto) (34.0-71.1) % Lymph % (Auto) (19.3-51.7) % [place] % (Auto) (4.7-12.5) % Eos % (Auto) (0.7-5.8) Baso % (Auto) (0.1-1.2) % Neut # (Auto) (1.56-6.13) K/mm3 Lymph # (Auto) (1.18-3.74) K/mm3 [place] # (Auto) (0.24-0.36) K/mm3 Eos # (Auto) (0.04-0.36) K/mm3 Baso # (Auto) (0.01-0.08) K/mm3 POC Glucose 145 H (80-115) mg/dL Magnesium (1.8-2.4) mg/dl NT-Pro-B Natriuret Pep (0-125) pg/mL Med Orders - Current: Current Medications Amlodipine Besylate (Norvasc) 5 mg PO BID [facility] Last Admin: 10/19/18 21:54 Dose: Not Given Aspirin (Aspirin) 162 mg PO DAILY [facility] Last Admin: 10/19/18 08:54 Dose: 162 mg Benazepril HCl (Lotensin) 40 mg PO DAILY [facility] Last Admin: 10/19/18 08:57 Dose: 40 mg Cholecalciferol (Vitamin D3) 1,000 units PO DAILY [facility] Last Admin: 10/19/18 08:56 Dose: 1,000 units Citalopram Hydrobromide (Celexa) 40 mg PO DAILY [facility] Last Admin: 10/19/18 08:58 Dose: 40 mg Clopidogrel Bisulfate (Plavix) 75 mg PO DAILY [facility] Dextrose/Water (Dextrose 50% In Water) 50 ml IV ASDIRECTED PRN PRN Reason: Hypoglycemia Glipizide (Glucotrol Xl) 2.5 mg PO BID [facility] Last Admin: 10/19/18 20:32 Dose: 2.5 mg Hydralazine HCl (Apresoline) 20 mg IVPUSH Q4H PRN PRN Reason: Hypertension Last Admin: 10/16/18 05:40 Dose: 20 mg Hydralazine HCl (Apresoline) 25 mg PO BID [facility] Hydrochlorothiazide (Hydrochlorothiazide) 12.5 mg PO BID [facility] Insulin Glargine (Lantus) 15 unit SUBCUT DAILY [facility] Last Admin: 10/19/18 09:04 Dose: 15 units Insulin Human Lispro (Humalog) 0 unit SUBCUT QIDACANDBED [facility]; Protocol Last Admin: 10/20/18 06:49 Dose: Not Given Magnesium Sulfate (Pharmacy To Dose - Magnesium Replacement) 0 dose .XX ASDIRECTED PRN PRN Reason: RX TO WATCH MAG Metformin HCl (Glucophage) 850 mg PO BIDMEALS [facility] Last Admin: 10/19/18 16:46 Dose: 850 mg Miscellaneous Information (Remove Patch) 0 ea TRDERM Q7D [facility] Ondansetron HCl (Zofran) 4 mg IVPUSH Q6H PRN PRN Reason: Nausea/Vomiting Last Admin: 10/16/18 18:07 Dose: 4 mg Oxybutynin Chloride (Oxybutynin Er) 5 mg PO DAILY [facility] Last Admin: 10/19/18 08:58 Dose: 5 mg Potassium Chloride (Pharmacy To Dose - Potassium Replacement) 0 dose .XX ASDIRECTED PRN PRN Reason: RX TO WATCH K Rosuvastatin Calcium (Crestor) 10 mg PO DAILY [facility] Last Admin: 10/19/18 08:56 Dose: 10 mg Discontinued Medications Amlodipine Besylate (Norvasc) 10 mg PO DAILY [facility] Last Admin: 10/16/18 14:07 Dose: Not Given Amlodipine Besylate (Norvasc) 10 mg PO BEDTIME [facility] Last Admin: 10/15/18 20:47 Dose: 10 mg Aspirin (Halfprin) 81 mg PO DAILY [facility] Last Admin: 10/13/18 08:24 Dose: 81 mg Aspirin (Ecotrin) 325 mg PO DAILY [facility] Last Admin: 10/15/18 09:06 Dose: 325 mg Clonidine HCl (Catapres) 0.2 mg PO ONETIME ONE Stop: 10/12/18 22:59 Last Admin: 10/12/18 23:06 Dose: 0.2 mg Clonidine HCl (Catapres-Tts 3) 0.3 mg TRDERM Q7D ONE Stop: 10/17/18 11:06 Last Admin: 10/17/18 12:36 Dose: 0.3 mg Clopidogrel Bisulfate (Plavix) 300 mg PO ONETIME ONE Stop: 10/13/18 16:38 Last Admin: 10/13/18 17:26 Dose: 300 mg Clopidogrel Bisulfate (Plavix) 75 mg PO DAILY [facility] Clopidogrel Bisulfate (Plavix) Confirm Administered Dose 75 mg .ROUTE .STK-MED ONE Stop: 10/19/18 23:07 Last Admin: 10/19/18 23:10 Dose: 75 mg Clopidogrel Bisulfate (Plavix) 75 mg PO ONETIME ONE Stop: 10/20/18 03:31 Last Admin: 10/20/18 03:46 Dose: Not Given Dextrose/Water (Dextrose 50% In Water) 50 ml IVPUSH ASDIRECTED PRN PRN Reason: Hypoglycemia Hydralazine HCl (Apresoline) 25 mg PO Q8H [facility] Last Admin: 10/20/18 00:30 Dose: Not Given Hydralazine HCl (Apresoline) 20 mg IVPUSH Q4H PRN PRN Reason: Hypertension Hydralazine HCl (Apresoline) 20 mg IVPUSH Q4H PRN PRN Reason: Hypertension Hydrochlorothiazide (Hydrochlorothiazide) 12.5 mg PO DAILY [facility] Last Admin: 10/16/18 14:07 Dose: Not Given Hydrochlorothiazide (Hydrochlorothiazide) 12.5 mg PO BID [facility] Last Admin: 10/17/18 09:43 Dose: 12.5 mg Hydrochlorothiazide (Hydrochlorothiazide) 25 mg PO BID [facility] Last Admin: 10/19/18 21:54 Dose: Not Given Sodium Chloride (Normal Saline) 1,000 mls @ 999 mls/hr IV ONETIME ONE Stop: 10/12/18 23:13 Last Admin: 10/12/18 22:25 Dose: 999 mls/hr Magnesium Sulfate 2 gm/ Premix 50 mls @ 25 mls/hr IV ONETIME ONE Stop: 10/13/18 11:20 Last Admin: 10/13/18 09:56 Dose: 25 mls/hr Magnesium Sulfate 2 gm/ Premix 50 mls @ 25 mls/hr IV ONETIME ONE Stop: 10/14/18 11:54 Last Admin: 10/14/18 11:46 Dose: 25 mls/hr Ceftriaxone Sodium 2 gm/ (Sodium Chloride) 100 mls @ 200 mls/hr IV Q24H [facility] Last Admin: 10/17/18 18:45 Dose: 200 mls/hr Magnesium Sulfate 2 gm/ Premix 50 mls @ 25 mls/hr IV ONETIME ONE Stop: 10/15/18 09:33 Last Admin: 10/15/18 09:08 Dose: 25 mls/hr Sodium Chloride (Normal Saline) Confirm Administered Dose 500 mls @ as directed .ROUTE .STK-MED ONE Stop: 10/19/18 22:22 Last Admin: 10/19/18 22:30 Dose: 999 mls/hr Sodium Chloride (Normal Saline) 500 mls @ 500 mls/hr IV ONETIME ONE Stop: 10/20/18 04:14 Last Admin: 10/20/18 03:45 Dose: Not Given Insulin Human Lispro (Humalog) 7 unit SUBCUT QIDACANDBED [facility] Last Admin: 10/14/18 17:44 Dose: Not Given Magnesium Oxide (Magnesium Oxide) 800 mg PO ONETIME ONE Stop: 10/18/18 09:01 Last Admin: 10/18/18 09:41 Dose: 800 mg Magnesium Sulfate (Pharmacy To Dose - Magnesium Replacement) 1 dose .XX ASDIRECTED [facility] Ondansetron HCl (Zofran) 4 mg IVPUSH Q4H PRN PRN Reason: Nausea Potassium Chloride (Klor-Con M20) 20 meq PO BID [facility] Last Admin: 10/16/18 21:03 Dose: 20 meq Potassium Chloride (Pharmacy To Dose - Potassium Replacement) 1 dose .XX ASDIRECTED [facility] Terazosin HCl (Hytrin) 1 mg PO BEDTIME [facility] - Exam General: Alert, Oriented, Cooperative, No Acute Distress HEENT: Pupils Equal, Pupils Reactive, EOMI, Mucous Membr. Moist/[place] Neck: Other (mild slurred speech) Lungs: Clear to Auscultation, Normal Respiratory Effort Cardiovascular: Regular Rate, Regular Rhythm GI/Abdominal Exam: Normal Bowel Sounds, Soft, Non-Tender, No Organomegaly, No Distention, No Abnormal Bruit, No Mass (Female) Exam: Deferred Back Exam: Normal Inspection, Full Range of Motion Extremities: Normal Inspection, Normal Range of Motion, Non-Tender, No Pedal Edema, Normal Capillary Refill, Pedal Edema, Other Peripheral Pulses: 2+: Dorsalis Pedis (L), Dorsalis Pedis (R) Skin: Warm, Intact Neurological: Other (flaccid right arm). No: Normal Gait, Strength Equal Bilateral, Sensation Intact Psy/Mental Status: Alert, Normal Affect, Normal Mood - Problem List Review Problem List Initiated/Reviewed/Updated: Yes - My Orders Last 24 Hours: My Active Orders 10/19/18 21:00 glipiZIDE [Glucotrol XL] 2.5 mg PO BID 10/19/18 21:01 Communication Order [RC] 10/20/18 04:24 Bladder Scan [RC] ASDIRECTED 10/20/18 21:00 hydrALAZINE [Apresoline] 25 mg PO BID hydroCHLOROthiazide 12.5 mg PO BID 10/21/18 05:11 BMP [BASIC METABOLIC PANEL,BMP] [CHEM] AM MG [MAGNESIUM] [CHEM] AM 10/22/18 05:11 MG [MAGNESIUM] [CHEM] AM 10/24/18 11:15 Remove Patch 0 ea TRDERM Q7D - Plan Plan:: CVA * At this time it appears that she has had a right-sided stroke. This likely started on before she arrived at her son's house. * MRI of the brain 10/15/18: * Brain MRI notes fairly acute white matter infarct within the periventricular white matter at the temp poor oral parietal junction on the left side. Denies atrophy along with small vessel ischemic demyelination change. * She has a history of carotid stenosis, carotid artery Dopplers obtained * Echocardiogram obtained * Lipid panel: Triglycerides 121, total cholesterol 138, LDL 85, HDL 39. * PT, OT, speech therapy. * Discharge planning. She will likely need placement at least at a senior living facility rehab stay * ASA and Statin DAily * Repeat MRI 10/18/18: Hypertension, Improved * Patients hypertension over the last few days likely been worsened because of her CVA. Fortunately by not having all of her blood pressure medications were kept her blood pressure relatively high which is necessary in an acute CVA. She is now 3 days past the initial presentation and we can restart all her medications and bring down her blood pressure slowly. * She is now on Norvasc 5 mg po BID, HCTZ 25 mg po BID, Hydralazine 25 mg po Q8H , and Lotensin 40 mg po Daily Type 2 diabetes insulin-dependent * BS remains uncontrolled * Continue LA Insulin and Home Dose Metformin; Increased ISS to high level * Added low dose Glucotrol 2.5 mg po BID * Check blood sugars every before meals and daily at bedtime * Hemoglobin A1c yesterday was 10.6 * Offered SGLT2 and GLP1 inhibitors for mainstay treatment; she will benefit with her recent stroke; reading materials provided * Discussed potential risk and benefits with her; she will let me know Hyperlipidemia, Stable * Continue home meds * Lipid panel as above; now on Crestor 10 mg po daily Generalized Weakness * 2/2 Stroke Resolved: S/P Nausea and vomiting * Episode of N&V while taking pills this AM * Single episode -sudden onset * HR noted to be 120s at that time * 12-lead obtained * Troponin and CKMB WNL * CXR obtained - nothing acute * No nausea or vomiting since * C[employer]IED [employer]IFE changed to thickened liquids Hypomagnesemia * Likely resolved * Magnesium 1.7 * Pharmacy to monitor and supplement Discharge planning for placement. Diabetic education. She remains clinically stable Provided reading materials for SGLT2/GLP1 inhibitors as main treatment of her longstanding DM2. These drugs according to studies would cut down cardiovascular risk by combined 60%. SGLT2 will also help with blood pressure control. Patient will let me know. LOS >96 HRS pending placement
[2018-10-20] MEDS: Oxybutynin 5 MG Tab.ER PO SCH (10:06)
[2018-10-20] MEDS: amLODIPine 5 MG Tab PO SCH ×2 (10:06→20:46)
[2018-10-20] MEDS: Aspirin 81 MG Tab.Chew PO SCH (10:06)
[2018-10-20] MEDS: Clopidogrel 75 MG Tab PO SCH (10:07)
[2018-10-20] MEDS: glipiZIDE 2.5 MG Tab.ER PO SCH ×2 (10:07→21:55)
[2018-10-20] MEDS: Cholecalciferol (Vitamin D3) 1,000 Unit Tab PO SCH (10:07)
[2018-10-20] MEDS: Citalopram 20 MG Tab PO SCH (10:07)
[2018-10-20] MEDS: Rosuvastatin 10 MG Tab PO SCH (10:07)
[2018-10-20] MEDS: Insulin Glarg,Human.Rec.Analog 100 UNIT/ML ML SUBCUT SCH (10:07)
[2018-10-20] MEDS: Hydrochlorothiazide 12.5 MG Cap PO SCH ×2 (10:09→20:46)
[2018-10-21] MEDS: Insulin Lispro 100 Units/ML 3 ML Vial SUBCUT SCH ×2 (06:13→11:20)
--- NOTE | 2018-10-21 06:20 | PCM.DCSUM1 ---
Discharge Summary - Hospital Course HPI Initial Comments: This 68-year-old female who was discharged yesterday was brought back to the emergency room last night after sustaining a fall on her right side of the bathroom. Patient was admitted after falling 2 days ago and had hyperglycemia with anion gap metabolic acidosis. Patient was admitted to the ICU where she had correction of her acidosis and hyperglycemia. She was discharged home with a walker per PT because of the right-sided weakness. In the emergency room on Sunday she had a CT of the scan of the head and ruled out for stroke. Discussing it in more detail with the son today it appears that she wasn't quite herself on . She had some more slurred speech and he states that his siblings noted it on the phone. She seemed more confused and tired. On Sunday when she fell and was brought into the emergency room there was a history of her not taking her blood pressure medications and not taking her insulin. Her blood sugars were over 400 and she had missed several doses of her insulin. In hindsight, it appears that she had some right-sided facial drooping at that time. He was generally felt that this was normal for her, and that her dysarthria was because of dry mouth. Now patient appears much more consistent with a CVA. We did get a new med list and she was off of at least 3 of her 5 blood pressure medications. While she was in the ICU one and 2 days ago her blood pressures were constantly in the 180s to 190s. Patient denies any headache , fever, chills, shortness of breath, numbness, or tingling. She does state that she feels weak on her right hand and leg. Diagnosis: Stroke: Yes Modified [place] Scale: Slight Disable;Unable to Carry Out Prev Act.Able to Look After Affairs Modified Rich[place] Scale Score: 2 - Discharge Data Discharge Date: 10/21/18 (Admit date: 10/12/18) Discharge Disposition: DC/Tfer to SNF 03 Condition: Good - Discharge Diagnosis/Problem(s) (1) CVA (cerebral vascular accident) SNOMED Code(s): 233385614 ICD Code: I63.9 - CEREBRAL INFARCTION, UNSPECIFIED Status: Acute Priority : High Current Visit: Yes Qualifiers: CVA mechanism: unspecified Qualified Code(s): I63.9 - Cerebral infarction, unspecified (2) HTN (hypertension) SNOMED Code(s): 69508516 ICD Code: I10 - ESSENTIAL (PRIMARY) HYPERTENSION Status: Acute Priority: High Current Visit: Yes Qualifiers: Hypertension type: unspecified Qualified Code(s): I10 - Essential (primary ) hypertension (3) Right leg weakness SNOMED Code(s): 167476478 ICD Code: R29.898 - OTH SYMPTOMS AND SIGNS INVOLVING THE MUSCULOSKELETAL SYSTEM Status: Acute Priority: High Current Visit: Yes (4) Nausea & vomiting SNOMED Code(s): 90785749 ICD Code: R11.2 - NAUSEA WITH VOMITING, UNSPECIFIED Status: Acute Priority: High Current Visit: Yes Qualifiers: Vomiting type: unspecified Vomiting Intractability: non-intractable Qualified Code(s): R11.2 - Nausea with vomiting, unspecified (5) Hypomagnesemia SNOMED Code(s): 859127252 ICD Code: E83.42 - HYPOMAGNESEMIA Status: Acute Priority: High Current Visit: Yes - Patient Summary/Data Consults: Consultations 10/12/18 23:23 Consult to Diabetic Nurse Specialist [CONS] Routine Consult to Glass Unloading Equipment Tender [CONS] Routine 10/13/18 13:09 Consult to Case Management/Seamless Tube Roller [CONS] Routine OT Evaluation and Treatment [CONS] Routine PT Evaluation and Treatment [CONS] Routine 10/16/18 09:53 Consult to Speech Language Pathology [RESAWYER Evaluation and Treatment] [CONS] Routine Labs Pending at D/C: None Recommended Follow-up Testing/Procedures: Follow-up with PCP within 7-10 days of discharge. Hospital Course: CVA * At this time it appears that she has had a right-sided stroke. This likely started on before she arrived at her son's house. * MRI of the brain 10/15/18: * Brain MRI notes fairly acute white matter infarct within the periventricular white matter at the temp poor oral parietal junction on the left side. Denies atrophy along with small vessel ischemic demyelination change. * She has a history of carotid stenosis, carotid artery Dopplers obtained * Echocardiogram obtained * Lipid panel: Triglycerides 121, total cholesterol 138, LDL 85, HDL 39. * PT, OT, speech therapy. * Discharge planning. She will likely need [facility] * ASA and Statin DAily * Repeat MRI 10/18/18: No changes Hypertension, Improved * Patients hypertension over the last few days likely been worsened because of her CVA. Fortunately by not having all of her blood pressure medications were kept her blood pressure relatively high which is necessary in an acute CVA. She is now 3 days past the initial presentation and we can restart all her medications and bring down her blood pressure slowly. * She is now on Norvasc 5 mg po BID, HCTZ 25 mg po BID, Hydralazine 25 mg po Q8H , and Lotensin 40 mg po Daily Type 2 diabetes insulin-dependent * BS remains uncontrolled * Continue LA Insulin and Home Dose Metformin; Increased ISS to high level * Added low dose Glucotrol 2.5 mg po BID * Check blood sugars every before meals and daily at bedtime * Hemoglobin A1c yesterday was 10.6 * Offered SGLT2 and GLP1 inhibitors for mainstay treatment; she will benefit with her recent stroke; reading materials provided * Discussed potential risk and benefits with her; she will let me know Hyperlipidemia, Stable * Continue home meds * Lipid panel as above; now on Crestor 10 mg po daily Generalized Weakness * 2/2 Stroke Resolved: S/P Nausea and vomiting * Episode of N&V while taking pills this AM * Single episode -sudden onset * HR noted to be 120s at that time * 12-lead obtained * Troponin and CKMB WNL * CXR obtained - nothing acute * No nausea or vomiting since * RESAWYER changed to thickened liquids Hypomagnesemia * Likely resolved * Magnesium 1.7 * Pharmacy to monitor and supplement Discharge planning for placement. Diabetic education. She remains clinically stable Provided reading materials for SGLT2/GLP1 inhibitors as main treatment of her longstanding DM2. These drugs according to studies would cut down cardiovascular risk by combined 60%. SGLT2 will also help with blood pressure control. Patient will let me know. LOS >96 HRS pending placement Overall Sully did okay. She was brought in with a new onset CVA, although her son does report that he believes she had a prior stroke a few months ago. Lipid panel was obtained and looked okay although her HDL was slightly low. She is already on a statin. Carotid ultrasound was obtained which is shows mild amount of smooth plaque within the right carotid bulb and a moderate amount of plaque noted within the left carotid bulb extending into the left proximal internal carotid artery. This appears heterogeneous and calcified with irregular surface margins. Echo was obtained showing "1. Normal left ventricular systolic function. 2. Impaired relaxation (grade 1) pattern of LV diastolic filling. 3. Moderate proximal septal hypertrophy. 4. No left ventricular mass/thrombus. 5. Left ventricular internal cavity size is normal. 6. No visible thrombus or mass seen in the left atrium. 7. No ASD, PFO. 8. There is mild aortic valve sclerosis. 9. Trace mitral valve regurgitation. 10. The aortic root is/are normal." MRI is obtained and interpreted by Dr. Matamoros as "1. Stable diffusion abdomen with the left periventricular white matter compatible with relatively acute white matter infarct. 2. Small vessel ischemic demyelination change and generalized atrophy is seen which are stable." She was placed on aspirin during her stay. She did appear to have an evolving CVA as her right-sided weakness went from mild to completely flaccid. Dr. Sparks did contact neurology who recommended starting Plavix and correcting electrolytes. She was noted to be quite hypertensive on admission and medications were adjusted for better control. A1c was noted to be 10.6 and her blood sugars did remain somewhat uncontrolled. Dr. Sparks did discuss SGLT2 and GLP1 inhibitors with the patient and her family. Prescriptions will be sent for this. He did work with our physical therapists and occupational therapist who recommended SNF rehabilitation stay. Also worked with our conservation educator and dietitian. Additionally on admission she was cleared for thin liquids and regular diet by RESAWYER. He did have an episode of emesis and it is felt that she may have choked on her pills as she was taking them during this episode. They reevaluated her and deemed her appropriate for mechanical soft with nectar thickened liquids. She did appear to tolerate this well. She did undergo multiple repeat CT scans and 2 MRIs with no changes noted in either. These were obtained due to her evolving CVA. Dr. Sparks did send her discharge medications includin mg by mouth daily Plavix, 25 mg by mouth daily Jardiance, 18 mg subcutaneous Alaina, 1000 mg by mouth twice a day with meals metformin, and 30 g topical 3 times a day nystatin as she was having some groin irritation prior to discharge. Parameters were placed on her home blood pressure medications and she was instructed to take her blood pressure daily and prior to taking any of these medications. She was instructed to take her blood glucose readings 3 times a day and at bedtime. She was prescribed medium dose sliding scale short acting insulin at discharge. She was instructed to return to the ED or contact her primary care provider should symptoms return or worsen. Family was very involved in her care. She'll be discharged to [facility] today. She should continue PT, OT, and speech services while at [facility]. - Patient Instructions Diet: Heart Healthy Diet, Diabetic Diet, Mechanical Soft Diet, Other: [place] thickened Activity: As Tolerated Driving: Do Not Drive Showering/Bathing: May Shower Notify Provider of: Fever, Increased Pain, Nausea and/or Vomiting Other/Special Instructions: Follow-up with PCP within 7-10 days of discharge. Continue PT/OT at SNF. Take all medications as prescribed. Should symptoms return or worsen contact PCP or return to the ED. - Discharge Plan *PRESCRIPTION DRUG MONITORING PROGRAM REVIEWED*: No *COPY OF PRESCRIPTION DRUG MONITORING REPORT IN PATIENT BRYAN: No Prescriptions/Med Rec: Clopidogrel [Plavix] 75 mg PO DAILY #30 tablet Empagliflozin [Jardiance] 25 mg PO DAILY #30 tablet Insulin Lispro [HumaLOG] 0 unit SUBCUT QIDACANDBED #1 vial Liraglutide [Victoza 3-Chance] 18 mg SQ ASDIRECTED #1 pen metFORMIN [Glucophage] 1,000 mg PO BIDMEALS #60 tab Nystatin 30 gm TP TID PRN #1 powder PRN Reason: Skin Irritation Home Medications: Home Meds Escitalopram [Lexapro] 20 mg PO DAILY 10/11/18 [History] Oxybutynin [Oxybutynin ER] 5 mg PO DAILY 10/11/18 [History] atorvaSTATin [Lipitor] 40 mg PO DAILY 10/11/18 [History] Aspirin [Halfprin] 81 mg PO DAILY 10/12/18 [History] Cholecalciferol (Vitamin D3) [Vitamin D3] 1,000 unit PO DAILY 10/12/18 [History] Empagliflozin [Jardiance] 25 mg PO DAILY #30 tablet 10/19/18 [Rx] Liraglutide [Victoza 3-Chance] 18 mg SQ ASDIRECTED #1 pen 10/19/18 [Rx] Benazepril HCl [Lotensin] 40 mg PO DAILY #30 10/21/18 [Rx] Clopidogrel [Plavix] 75 mg PO DAILY #30 tablet 10/21/18 [Rx] Felodipine [Felodipine ER] 10 mg PO DAILY #30 10/21/18 [Rx] Insulin Lispro [HumaLOG] 0 unit SUBCUT QIDACANDBED #1 vial 10/21/18 [Rx] Nystatin 30 gm TP TID PRN #1 powder 10/21/18 [Rx] hydrALAZINE [Apresoline] 25 mg PO Q8H #90 10/21/18 [Rx] metFORMIN [Glucophage] 1,000 mg PO BIDMEALS #60 tab 10/21/18 [Rx] Oxygen Therapy Mode: Room Air Patient Handouts: Fall Prevention in the Home, Adult, Znpz-[id number], Stroke Prevention, Hypomagnesemia, Nausea and Vomiting, Adult, Eumz-xy-Lcze, Ischemic Stroke, Folb-ie-Mrrc, Hypertension, Fuzl-kc-Sups, High Cholesterol Referrals: Chester Vuong MD [Physician] - 10/28/18 3:30 pm (Please follow up with Dr. Garcia on October 28 at 1530.) - Discharge Summary/Plan Comment DC Time >30 min.: Yes (45 mins ) - General Info Date of Service: 10/21/18 Admission Dx/Problem (Free Text: Admission Diagnosis/Problem Admission Diagnosis/Problem Weakness Subjective Update: In to see Sully with Dr. Sparks. Her 2 sons are also at bedside. She continues to have worse right-sided deficits. Denies any pain or concerns. Family discussed possibility of having patient placed in a Stroke Rehab center in [place] although ultimately it was decided that she would likely not be able to participate in rehabilitation frequently. Plan instead is to chart her to a local SNF for rehabilitation stay. No patient or family questions or concerns. No nursing concerns. She'll be discharged today. Functional Status: Reports: Pain Controlled, Tolerating Diet, Urinating. Denies : Ambulating, New Symptoms - Review of Systems General: Reports: No Symptoms. Denies: Fever, Weakness, Fatigue, Malaise HEENT: Reports: No Symptoms. Denies: Headaches, Sore Throat Pulmonary: Reports: No Symptoms. Denies: Shortness of Breath, Pleuritic Chest Pain, Cough, Sputum, Wheezing Cardiovascular: Reports: No Symptoms. Denies: Chest Pain, Palpitations, Dyspnea on Exertion, Edema Gastrointestinal: Reports: No Symptoms. Denies: Abdominal Pain, Constipation, Diarrhea, Nausea, Vomiting Genitourinary: Reports: No Symptoms. Denies: Pain Musculoskeletal: Reports: No Symptoms Skin: Reports: No Symptoms Neurological: Reports: No Symptoms, Pre-Existing Deficit, Trouble Speaking ( slurred ), Difficulty Walking, Weakness, Gait Disturbance. Denies: Confusion, Numbness Psychiatric: Reports: No Symptoms - Patient Data Vitals - Most Recent: Last Vital Signs Temp 97.7 F 10/21/18 03:26 Pulse 74 10/21/18 03:26 Resp 16 10/21/18 03:26 BP 153/65 H 10/21/18 03:26 Pulse Ox 98 10/21/18 03:26 Weight - Most Recent: 183 lb 9 oz I&O - Last 24 hours: Intake & Output 10/20/18 10/20/18 10/21/18 14:59 22:59 06:59 Intake Total 120 240 80 Output Total 500 200 Balance 120 -260 -120 Lab Results - Last 24 hrs: Laboratory Results - last 24 hr 10/19/18 10/19/18 10/19/18 Range/Units 22:30 22:30 22:30 WBC 6.56 (3.98-10.04) K/mm3 RBC 3.89 L (3.98-5.22) M/mm3 Hgb 11.9 (11.2-15.7) gm/L Hct 37.0 (34.1-44.9) % MCV 95.1 H (79.4-94.8) fl MCH 30.6 (25.6-32.2) pg MCHC 32.2 (32.2-35.5) g/dl RDW Std Deviation 42.2 (36.4-46.3) fL Plt Count 264 (182-369) K/mm3 MPV 10.8 (9.4-12.3) fl Neut % (Auto) 62.3 (34.0-71.1) % Lymph % (Auto) 24.7 (19.3-51.7) % Pratt % (Auto) 9.5 (4.7-12.5) % Eos % (Auto) 3.0 (0.7-5.8) Baso % (Auto) 0.3 (0.1-1.2) % Neut # (Auto) 4.09 (1.56-6.13) K/mm3 Lymph # (Auto) 1.62 (1.18-3.74) K/mm3 Pratt # (Auto) 0.62 H (0.24-0.36) K/mm3 Eos # (Auto) 0.20 (0.04-0.36) K/mm3 Baso # (Auto) 0.02 (0.01-0.08) K/mm3 POC Glucose (80-115) mg/dL Magnesium 2.0 (1.8-2.4) mg/dl NT-Pro-B Natriuret Pep 160 H (0-125) pg/mL 10/20/18 10/20/18 10/20/18 Range/Units 10:07 16:40 21:36 WBC (3.98-10.04) K/mm3 RBC (3.98-5.22) M/mm3 Hgb (11.2-15.7) gm/L Hct (34.1-44.9) % MCV (79.4-94.8) fl MCH (25.6-32.2) pg MCHC (32.2-35.5) g/dl RDW Std Deviation (36.4-46.3) fL Plt Count (182-369) K/mm3 MPV (9.4-12.3) fl Neut % (Auto) (34.0-71.1) % Lymph % (Auto) (19.3-51.7) % Pratt % (Auto) (4.7-12.5) % Eos % (Auto) (0.7-5.8) Baso % (Auto) (0.1-1.2) % Neut # (Auto) (1.56-6.13) K/mm3 Lymph # (Auto) (1.18-3.74) K/mm3 Pratt # (Auto) (0.24-0.36) K/mm3 Eos # (Auto) (0.04-0.36) K/mm3 Baso # (Auto) (0.01-0.08) K/mm3 POC Glucose 256 H 108 121 H (80-115) mg/dL Magnesium (1.8-2.4) mg/dl NT-Pro-B Natriuret Pep (0-125) pg/mL Med Orders - Current: Current Medications Amlodipine Besylate (Norvasc) [address] [facility] Last Admin: 10/20/18 20:46 Dose: 5 mg Aspirin (Aspirin) [address] [facility] Last Admin: 10/20/18 10:06 Dose: 162 mg Benazepril HCl (Lotensin) [address] [facility] Last Admin: 10/20/18 10:05 Dose: Not Given Bisacodyl (Dulcolax) [address] [facility] Cholecalciferol (Vitamin D3) 1,[address] [facility] Last Admin: 10/20/18 10:07 Dose: 1,000 units Citalopram Hydrobromide (Celexa) [address] [facility] Last Admin: 10/20/18 10:07 Dose: 40 mg Clopidogrel Bisulfate (Plavix) [address] [facility] Last Admin: 10/20/18 10:07 Dose: 75 mg Dextrose/Water (Dextrose 50% In Water) 50 ml IV ASDIRECTED PRN PRN Reason: Hypoglycemia Glipizide (Glucotrol Xl) 2.[address] [facility] Last Admin: 10/20/18 21:55 Dose: Not Given Hydralazine HCl (Apresoline) 20 mg IVPUSH Q4H PRN PRN Reason: Hypertension Last Admin: 10/16/18 05:40 Dose: 20 mg Hydralazine HCl (Apresoline) [address] [facility] Last Admin: 10/20/18 20:46 Dose: 25 mg Hydrochlorothiazide (Hydrochlorothiazide) 12.[address] [facility] Last Admin: 10/20/18 20:46 Dose: 12.5 mg Insulin Glargine (Lantus) [address] [facility] Last Admin: 10/20/18 10:07 Dose: 15 units Insulin Human Lispro (Humalog) [address] [facility]; Protocol Last Admin: 10/21/18 06:13 Dose: Not Given Magnesium Sulfate (Pharmacy To Dose - Magnesium Replacement) 0 dose .XX ASDIRECTED PRN PRN Reason: RX TO WATCH MAG Metformin HCl (Glucophage) [address] [facility] Last Admin: 10/20/18 16:49 Dose: 850 mg Miscellaneous Information (Remove Patch) [address] [facility] Ondansetron HCl (Zofran) 4 mg IVPUSH Q6H PRN PRN Reason: Nausea/Vomiting Last Admin: 10/16/18 18:07 Dose: 4 mg Oxybutynin Chloride (Oxybutynin Er) [address] [facility] Last Admin: 10/20/18 10:06 Dose: 5 mg Potassium Chloride (Pharmacy To Dose - Potassium Replacement) 0 dose .XX ASDIRECTED PRN PRN Reason: RX TO WATCH K Rosuvastatin Calcium (Crestor) [address] [facility] Last Admin: 10/20/18 10:07 Dose: 10 mg Discontinued Medications Amlodipine Besylate (Norvasc) [address] [facility] Last Admin: 10/16/18 14:07 Dose: Not Given Amlodipine Besylate (Norvasc) [address] [facility] Last Admin: 10/15/18 20:47 Dose: 10 mg Aspirin (Halfprin) [address] [facility] Last Admin: 10/13/18 08:24 Dose: 81 mg Aspirin (Ecotrin) [address] [facility] Last Admin: 10/15/18 09:06 Dose: 325 mg Clonidine HCl (Catapres) 0.2 mg PO ONETIME ONE Stop: 10/12/18 22:59 Last Admin: 10/12/18 23:06 Dose: 0.2 mg Clonidine HCl (Catapres-Tts 3) 0.3 mg TRDERM Q7D ONE Stop: 10/17/18 11:06 Last Admin: 10/17/18 12:36 Dose: 0.3 mg Clopidogrel Bisulfate (Plavix) 300 mg PO ONETIME ONE Stop: 10/13/18 16:38 Last Admin: 10/13/18 17:26 Dose: 300 mg Clopidogrel Bisulfate (Plavix) [address] [facility] Clopidogrel Bisulfate (Plavix) Confirm Administered Dose 75 mg .ROUTE .STK-MED ONE Stop: 10/19/18 23:07 Last Admin: 10/19/18 23:10 Dose: 75 mg Clopidogrel Bisulfate (Plavix) 75 mg PO ONETIME ONE Stop: 10/20/18 03:31 Last Admin: 10/20/18 03:46 Dose: Not Given Dextrose/Water (Dextrose 50% In Water) 50 ml IVPUSH ASDIRECTED PRN PRN Reason: Hypoglycemia Hydralazine HCl (Apresoline) [address] [facility] Last Admin: 10/20/18 10:09 Dose: Not Given Hydralazine HCl (Apresoline) 20 mg IVPUSH Q4H PRN PRN Reason: Hypertension Hydralazine HCl (Apresoline) 20 mg IVPUSH Q4H PRN PRN Reason: Hypertension Hydrochlorothiazide (Hydrochlorothiazide) 12.[address] [facility] Last Admin: 10/16/18 14:07 Dose: Not Given Hydrochlorothiazide (Hydrochlorothiazide) 12.[address] [facility] Last Admin: 10/17/18 09:43 Dose: 12.5 mg Hydrochlorothiazide (Hydrochlorothiazide) [address] [facility] Last Admin: 10/20/18 10:09 Dose: Not Given Sodium Chloride (Normal Saline) 1,000 mls @ 999 mls/hr IV ONETIME ONE Stop: 10/12/18 23:13 Last Admin: 10/12/18 22:25 Dose: 999 mls/hr Magnesium Sulfate 2 gm/ Premix 50 mls @ 25 mls/hr IV ONETIME ONE Stop: 10/13/18 11:20 Last Admin: 10/13/18 09:56 Dose: 25 mls/hr Magnesium Sulfate 2 gm/ Premix 50 mls @ 25 mls/hr IV ONETIME ONE Stop: 10/14/18 11:54 Last Admin: 10/14/18 11:46 Dose: 25 mls/hr Ceftriaxone Sodium 2 gm/ (Sodium Chloride) 100 mls @ 200 mls/hr IV Q24H [facility] Last Admin: 10/17/18 18:45 Dose: 200 mls/hr Magnesium Sulfate 2 gm/ Premix 50 mls @ 25 mls/hr IV ONETIME ONE Stop: 10/15/18 09:33 Last Admin: 10/15/18 09:08 Dose: 25 mls/hr Sodium Chloride (Normal Saline) Confirm Administered Dose 500 mls @ as directed .ROUTE .STK-MED ONE Stop: 10/19/18 22:22 Last Admin: 10/19/18 22:30 Dose: 999 mls/hr Sodium Chloride (Normal Saline) 500 mls @ 500 mls/hr IV ONETIME ONE Stop: 10/20/18 04:14 Last Admin: 10/20/18 03:45 Dose: Not Given Insulin Human Lispro (Humalog) [address] [facility] Last Admin: 10/14/18 17:44 Dose: Not Given Magnesium Oxide (Magnesium Oxide) 800 mg PO ONETIME ONE Stop: 10/18/18 09:01 Last Admin: 10/18/18 09:41 Dose: 800 mg Magnesium Sulfate (Pharmacy To Dose - Magnesium Replacement) [address] [facility] Ondansetron HCl (Zofran) 4 mg IVPUSH Q4H PRN PRN Reason: Nausea Potassium Chloride (Klor-Con M20) [address] [facility] Last Admin: 10/16/18 21:03 Dose: 20 meq Potassium Chloride (Pharmacy To Dose - Potassium Replacement) [address] [facility] Terazosin HCl (Hytrin) 1 mg PO BEDTIME [facility] - Exam Quality Assessment: Reports: DVT Prophylaxis General: Reports: Alert, Oriented, Cooperative, No Acute Distress HEENT: Reports: Pupils Equal, Pupils Reactive, EOMI, Mucous Membr. Moist/[place] Neck: Reports: Supple, Trachea Midline Lungs: Reports: Clear to Auscultation, Normal Respiratory Effort Cardiovascular: Reports: Regular Rate, Regular Rhythm GI/Abdominal Exam: Normal Bowel Sounds, Soft, Non-Tender, No Organomegaly, No Distention (Female) Exam: Deferred Rectal (Female) Exam: Deferred Back Exam: Reports: Normal Inspection, Full Range of Motion Extremities: Normal Inspection, Non-Tender, No Pedal Edema, Normal Capillary Refill, Limited Range of Motion, Other (Right sided paralysis ) Skin: Reports: Warm, Dry, Intact Neurological: Reports: No New Focal Deficit, Sensation Intact. Denies: Normal Gait, Normal Speech, Strength Equal Bilateral (flaccid right side ) Psy/Mental Status: Reports: Alert, Normal Affect, Normal Mood
[2018-10-21] MEDS ORDERED: Bisacodyl 10 MG Supp RECTAL SCH (07:00)
[2018-10-21] MEDS: Rosuvastatin 10 MG Tab PO SCH (08:13)
[2018-10-21] MEDS: Cholecalciferol (Vitamin D3) 1,000 Unit Tab PO SCH (08:13)
[2018-10-21] MEDS: Oxybutynin 5 MG Tab.ER PO SCH (08:13)
[2018-10-21] MEDS: Clopidogrel 75 MG Tab PO SCH (08:13)
[2018-10-21] MEDS: Hydrochlorothiazide 12.5 MG Cap PO SCH (08:13)
[2018-10-21] MEDS: Aspirin 81 MG Tab.Chew PO SCH (08:13)
[2018-10-21] MEDS: hydrALAZINE 25 MG Tab PO SCH (08:13)
[2018-10-21] MEDS: amLODIPine 5 MG Tab PO SCH (08:14)
[2018-10-21] MEDS: Insulin Glarg,Human.Rec.Analog 100 UNIT/ML ML SUBCUT SCH (08:14)
[2018-10-21] MEDS: glipiZIDE 2.5 MG Tab.ER PO SCH (08:14)
[2018-10-21] MEDS: Citalopram 20 MG Tab PO SCH (08:14)
== END 2018-10-21 13:30 | DRG 65 ==
LOC: JD.ED 21:17 → JD.MS 23:08
PROVIDERS: ADMIT Family Medicine; ATTEND Family Medicine
DX: R53.1 Weakness (principal); W18.30XA Fall on same level, unspecified, initial encounter; I63.9 Cerebral infarction, unspecified; G81.01 Flaccid hemiplegia affecting right dominant side; R47.1 Dysarthria and anarthria; R29.810 Facial weakness; R13.10 Dysphagia, unspecified; E11.65 Type 2 diabetes mellitus with hyperglycemia; E78.00 Pure hypercholesterolemia, unspecified; E78.5 Hyperlipidemia, unspecified; E83.42 Hypomagnesemia; R11.2 Nausea with vomiting, unspecified; I10 Essential (primary) hypertension; M19.90 Unspecified osteoarthritis, unspecified site; M81.0 Age-related osteoporosis without current pathological fracture; F32.9 Major depressive disorder, single episode, unspecified; Z90.49 Acquired absence of other specified parts of digestive tract; Z90.710 Acquired absence of both cervix and uterus; Z79.82 Long term (current) use of aspirin; Z79.4 Long term (current) use of insulin; Z87.440 Personal history of urinary (tract) infections; Z86.73 Personal history of transient ischemic attack (TIA), and cerebral infarction without residual deficits; Z79.899 Other long term (current) drug therapy; Z66 Do not resuscitate
CPT/HCPCS: 36415; 73502; 80053; 82009; 82800; 82962; 83735; 83930; 85025; 86140; 99285; A9270; J7040; 51798; 70450; 70450-26; 70551; 70551-26; 71046; 71046-26; 80048; 80061; 81001; 82553; 83880; 84484; 87086; 87088; 87186; 92610-GN; 93005; 93306; 93880; 93880-26; 97110-GO; 97110-GP; 97112-GO; 97112-GP; 97116-GP; 97140-GO; 97162-GP; 97166-GO; 97530-GO; 97530-GP; 97535-GO; J0360; J0696; J1815-GY; J2405; J3475; J7030

== ENCOUNTER 2018-10-28 20:08 | Inpatient (IN) | payer MEDICARE, BC ==
[2018-10-28] MEDS ORDERED: Sodium Chloride 0.9% 10 ML Syringe FLUSH PRN (20:17)
--- NOTE | 2018-10-28 20:21 | EDM.PDOC ---
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 She was discharged to [facility] about 6 days ago. Apparently has not been eating or drinking well. She was seen by her personal Phys. Dr Srivastava today, found to be looking dehydrated. Labs were drawn and now available showing BUN of 124, creatnine 3.82, Na 151, EGFR 12. She is type 2 diabetic, glucose 210. She has been sent here by Dr Srivastava for IV hydration. SHe is DNR, DNI. She denies chest, Abd or other pain at this time. - Related Data Allergies Allergy/AdvReac Type Severity Reaction Status Date / Time No Known Allergies Allergy Verified 10/12/18 21:34 Home Meds: Home Meds Escitalopram [Lexapro] 10 mg PO DAILY 10/11/18 [History] Oxybutynin [Oxybutynin ER] 5 mg PO DAILY 10/11/18 [History] atorvaSTATin [Lipitor] 40 mg PO DAILY 10/11/18 [History] Aspirin [Halfprin] 81 mg PO DAILY 10/12/18 [History] Cholecalciferol (Vitamin D3) [Vitamin D3] 1,000 unit PO DAILY 10/12/18 [History] Empagliflozin [Jardiance] 25 mg PO DAILY #30 tablet 10/19/18 [Rx] Benazepril HCl [Lotensin] 40 mg PO DAILY #30 10/21/18 [Rx] Clopidogrel [Plavix] 75 mg PO DAILY #30 tablet 10/21/18 [Rx] Felodipine [Felodipine ER] 10 mg PO DAILY #30 10/21/18 [Rx] Insulin Lispro [HumaLOG] 0 unit SUBCUT QIDACANDBED #1 vial 10/21/18 [Rx] hydrALAZINE [Apresoline] 25 mg PO Q8H #90 10/21/18 [Rx] metFORMIN [Glucophage] 1,000 mg PO BIDMEALS #60 tab 10/21/18 [Rx] Acetaminophen [Tylenol] 650 mg PO TID 10/28/18 [History] Past Medical History - Past Health History Medical/Surgical History: Denies Medical/Surgical History Cardiovascular History: Reports: High Cholesterol, Hypertension Genitourinary History: Reports: UTI, Recurrent [employer] History: Reports: Musculoskeletal History: Reports: Osteoarthritis, Osteoporosis Neurological History: Reports: CVA, TIA Psychiatric History: Reports: Depression Endocrine/Metabolic History: Reports: Diabetes, Type II - Past Surgical History GI Surgical History: Reports: Cholecystectomy Female Surgical History: Reports: Hysterectomy Musculoskeletal Surgical History: Reports: Carpal Tunnel Social & Family History - Tobacco Use Smoking Status *Q: Never Smoker - Caffeine Use Caffeine Use: Reports: None - Recreational Drug Use Recreational Drug Use: No - Living Situation & Occupation Living situation: Reports: Occupation: Retired ED ROS GENERAL - Review of Systems Review Of Systems: Unable To Obtain Constitutional: Denies: Fever, Chills, Diaphoresis HEENT: Denies: Throat Pain Respiratory: Denies: Shortness of Breath Cardiovascular: Denies: Chest Pain GI/Abdominal: Reports: Decreased Appetite. Denies: Abdominal Pain, Nausea, Vomiting Musculoskeletal: Denies: Arm Pain, Leg Pain Skin: Denies: Rash Neurological: Reports: Weakness (complete paralysis R arm and leg since CVA about 2 wks ago). Denies: Headache ED EXAM, GENERAL - Physical Exam Exam: See Below General Appearance: Alert, Other (drowsy but arouseable) Eye Exam: Bilateral Eye: PERRL Throat/Mouth: Other (oral mucosa is dry) Head: Atraumatic Neck: Supple, Other (no JVD) Respiratory/Chest: No Respiratory Distress, Lungs Clear Cardiovascular: Regular Rate, Rhythm GI/Abdominal: Soft, Non-Tender Extremities: No: Arm Pain, Leg Pain, Redness Neurological: Other (drowsy but arouseable, answers simple questions, complete paralysis R arm and leg) Skin Exam: Warm, Dry, Normal Color EKG INTERPRETATION EKG Date: 10/28/18 Rhythm: NSR [place]: Normal QRS: Other (q waves lead III) ST-T: Other (t wave inversions AVL) Course - Vital Signs Last Recorded V/S: Last Vital Signs Temp 97.5 F 10/28/18 20:09 Pulse 80 10/28/18 20:09 Resp 18 10/28/18 20:09 BP 139/70 10/28/18 20:09 Pulse Ox 93 L 10/28/18 20:09 - Orders/Labs/Meds Orders: Active Orders 24 hr Category Date Time Status EKG 12 Lead [EKG Documentation Completion] [RC] STAT Care 10/28/18 21:44 Active Peripheral IV Care [RC] . DIRECTED Care 10/28/18 20:17 Active Sodium Chloride 0.9% [Normal Saline] 1,000 ml Med 10/28/18 20:30 Active IV ONETIME Sodium Chloride 0.9% [Saline Flush] Med 10/28/18 20:17 Active 10 ml FLUSH ASDIRECTED PRN Peripheral IV Insertion Adult [OM.PC] Stat Oth 10/28/18 20:17 Ordered Medication Orders Sodium Chloride (Normal Saline) 1,000 mls @ 999 mls/hr IV ONETIME KAELA Last Admin: 10/28/18 20:42 Dose: 999 mls/hr Sodium Chloride (Saline Flush) 10 ml FLUSH ASDIRECTED PRN PRN Reason: Keep Vein Open Last Admin: 10/28/18 20:43 Dose: 10 ml Meds: Medications Generic Name Dose Route Start Last Admin Trade Name Freq PRN Reason Stop Dose Admin Sodium Chloride 1,000 mls @ 999 mls/hr 10/28/18 20:30 10/28/18 20:42 Normal Saline IV 999 mls/hr ONETIME KAELA Administration Sodium Chloride 10 ml 10/28/18 20:17 10/28/18 20:43 Saline Flush FLUSH 10 ml ASDIRECTED PRN Administration Keep Vein Open Departure - Departure Time of Disposition: 21:00 Disposition: Admitted As Inpatient 64 Condition: Serious Clinical Impression: Dehydration Renal failure Qualifiers: Renal failure chronicity: acute on chronic Acute renal failure type: unspecified Chronic kidney disease stage: stage 4 (severe) Qualified Code(s): N17.9 - Acute kidney failure, unspecified; N18.4 - Chronic kidney disease, stage 4 (severe) - Discharge Information ED Communication - Discussed Case With (1) Discussed Case With (1): Admitting Provider (Dr Rdz, Hospitalist, decision to admit at about 2100.) - My Orders Last 24 Hours: My Active Orders 10/28/18 20:17 Peripheral IV Care [RC] . DIRECTED Sodium Chloride 0.9% [Saline Flush] 10 ml FLUSH ASDIRECTED PRN Peripheral IV Insertion Adult [OM.PC] Stat 10/28/18 20:30 Sodium Chloride 0.9% [Normal Saline] 1,000 ml IV ONETIME 10/28/18 21:44 EKG 12 Lead [EKG Documentation Completion] [RC] STAT - Assessment/Plan Last 24 Hours: My Active Orders 10/28/18 20:17 Peripheral IV Care [RC] . DIRECTED Sodium Chloride 0.9% [Saline Flush] 10 ml FLUSH ASDIRECTED PRN Peripheral IV Insertion Adult [OM.PC] Stat 10/28/18 20:30 Sodium Chloride 0.9% [Normal Saline] 1,000 ml IV ONETIME 10/28/18 21:44 EKG 12 Lead [EKG Documentation Completion] [RC] STAT
[2018-10-28] MEDS ORDERED: Sodium Chloride 0.9% 1,000 ML IV SCH (20:30)
[2018-10-29] MEDS: Sodium Chloride 0.9% 1,000 ML IV SCH ×4 (00:15→20:54)
--- NOTE | 2018-10-29 12:34 | PCM.HP ---
H&P History of Present Illness - General Date of Service: 10/29/18 Admit Problem/Dx: Admission Diagnosis/Problem Admission Diagnosis/Problem Dehydration - History of Present Illness Initial Comments - Free Text/Narative: 68 yo WF with recent h/o debilitating stroke brought to ED due to severe volume depletion, dehydration, very poor PO intake and weight loss. On arrival discussed with son and the patient the option of TF. The patient refused. Agreed to IVF and electrolytes replacement. Admitted for further treatment. - Related Data Allergies/Adverse Reactions: Allergies Allergy/AdvReac Type Severity Reaction Status Date / Time No Known Allergies Allergy Verified 10/28/18 23:38 Home Medications: Home Meds Escitalopram [Lexapro] 10 mg PO DAILY 10/11/18 [History] Oxybutynin [Oxybutynin ER] 5 mg PO DAILY 10/11/18 [History] atorvaSTATin [Lipitor] 40 mg PO DAILY 10/11/18 [History] Aspirin [Halfprin] 81 mg PO DAILY 10/12/18 [History] Cholecalciferol (Vitamin D3) [Vitamin D3] 1,000 unit PO DAILY 10/12/18 [History] Empagliflozin [Jardiance] 25 mg PO DAILY #30 tablet 10/19/18 [Rx] Benazepril HCl [Lotensin] 40 mg PO DAILY #30 10/21/18 [Rx] Clopidogrel [Plavix] 75 mg PO DAILY #30 tablet 10/21/18 [Rx] Felodipine [Felodipine ER] 10 mg PO DAILY #30 10/21/18 [Rx] Insulin Lispro [HumaLOG] 0 unit SUBCUT QIDACANDBED #1 vial 10/21/18 [Rx] hydrALAZINE [Apresoline] 25 mg PO Q8H #90 10/21/18 [Rx] metFORMIN [Glucophage] 1,000 mg PO BIDMEALS #60 tab 10/21/18 [Rx] Acetaminophen [Tylenol] 650 mg PO TID 10/28/18 [History] Past Medical History - Past Health History Medical/Surgical History: Denies Medical/Surgical History HEENT History: Reports: Impaired Vision, Other (See Below) Other HEENT History: pt wears glasses Cardiovascular History: Reports: High Cholesterol, Hypertension Genitourinary History: Reports: Chronic Renal Insuffiency, Urinary Incontinence , UTI, Recurrent [employer] History: Reports: Musculoskeletal History: Reports: Osteoarthritis, Osteoporosis Neurological History: Reports: CVA, TIA Psychiatric History: Reports: Depression Endocrine/Metabolic History: Reports: Diabetes, Type II - Infectious Disease History Infectious Disease History: Reports: Other (See Below) Other Infectious Disease History: unknown - Past Surgical History Cardiovascular Surgical History: Reports: None Respiratory Surgical History: Reports: None GI Surgical History: Reports: Cholecystectomy Female Surgical History: Reports: Hysterectomy Endocrine Surgical History: Reports: None Neurological Surgical History: Reports: None Musculoskeletal Surgical History: Reports: Carpal Tunnel Social & Family History - Family History GI: Reports: None : Reports: None Neurological: Reports: None Psychiatric: Reports: None - Tobacco Use Smoking Status *Q: Never Smoker - Caffeine Use Caffeine Use: Reports: None - Recreational Drug Use Recreational Drug Use: No - Living Situation & Occupation Living situation: Reports: Occupation: Retired H&P Review of Systems - Review of Systems: Review Of Systems: See Below General: Reports: Weight Loss. Denies: Fever, Chills HEENT: Reports: Dysphasia. Denies: Vertigo Pulmonary: Reports: Cough. Denies: Shortness of Breath, Wheezing Cardiovascular: Denies: Chest Pain, Palpitations Gastrointestinal: Reports: Anorexia, Difficulty Swallowing. Denies: Abdominal Pain, Nausea, Vomiting Genitourinary: Denies: Dysuria Skin: Denies: Cyanosis, Jaundice Psychiatric: Denies: Confusion, Mood Lability Neurological: Denies: Seizure, Syncope Hematologic/Lymphatic: Denies: Easy Bleeding, Easy Bruising Exam - Exam Exam: See Below - Vital Signs Vital Signs: Last Vital Signs Temp 98.1 F 10/29/18 04:42 Pulse 83 10/29/18 08:00 Resp 16 10/29/18 08:00 BP 165/79 H 10/29/18 08:00 Pulse Ox 93 L 10/29/18 08:00 Weight: 174 lb 11.2 oz - Exam Quality Assessment: No: Supplemental Oxygen General: Alert, Oriented, Moderate Distress HEENT: Conjunctiva Clear, EOMI Neck: Supple, Trachea Midline Lungs: Clear to Auscultation, Normal Respiratory Effort. No: Crackles Cardiovascular: Regular Rate, Regular Rhythm, Normal S1, Normal S2. No: Gallop/ S3 GI/Abdominal Exam: Normal Bowel Sounds, Soft, Non-Tender, No Distention Extremities: Pedal Edema. No: Joint Swelling Peripheral Pulses: 2+: Posterior Tibial (L), Posterior Tibial (R) Skin: Warm, Dry Neuro Extensive - Mental Status: Alert, Oriented x3, Memory Intact Neuro Extensive - Motor, Sensory, Reflexes: Dysarthria, Motor/Sensory Deficits ( left motor deficit, U>L) Psychiatric: Alert, Depressed. No: Suicidal Ideation - Patient Data Lab Results Last 24 hrs: Laboratory Results - last 24 hr 10/28/18 10/28/18 10/29/18 Range/Units 22:00 23:40 05:55 WBC 10.36 H (3.98-10.04) K/mm3 RBC 4.22 (3.98-5.22) M/mm3 Hgb 12.6 (11.2-15.7) gm/L Hct 40.4 (34.1-44.9) % MCV 95.7 H (79.4-94.8) fl MCH 29.9 (25.6-32.2) pg MCHC 31.2 L (32.2-35.5) g/dl RDW Std Deviation 42.2 (36.4-46.3) fL Plt Count 208 (182-369) K/mm3 MPV 11.9 (9.4-12.3) fl Neut % (Auto) 78.1 H (34.0-71.1) % Lymph % (Auto) 15.8 L (19.3-51.7) % Dawson % (Auto) 5.4 (4.7-12.5) % Eos % (Auto) 0.3 L (0.7-5.8) Baso % (Auto) 0.2 (0.1-1.2) % Neut # (Auto) 8.09 H (1.56-6.13) K/mm3 Lymph # (Auto) 1.64 (1.18-3.74) K/mm3 Dawson # (Auto) 0.56 H (0.24-0.36) K/mm3 Eos # (Auto) 0.03 L (0.04-0.36) K/mm3 Baso # (Auto) 0.02 (0.01-0.08) K/mm3 Sodium (136-145) mEq/L Potassium (3.5-5.1) mEq/L Chloride (98-107) mEq/L Carbon Dioxide (21-32) mEq/L Anion Gap (5-15) BUN (7-18) mg/dL Creatinine (0.55-1.02) mg/dL Est Cr Clr Drug Dosing mL/min Estimated GFR (MDRD) (>60) mL/min BUN/Creatinine Ratio (14-18) Glucose (80-115) mg/dL POC Glucose 210 H (80-115) mg/dL Calcium (8.5-10.1) mg/dL Total Bilirubin (0.2-1.0) mg/dL AST (15-37) U/L ALT (14-59) U/L Alkaline Phosphatase (46-116) U/L Total Protein (6.4-8.2) g/dl Albumin (3.4-5.0) g/dl Globulin gm/dL Albumin/Globulin Ratio (1-2) MRSA (PCR) Negative 10/29/18 10/29/18 10/29/18 Range/Units 05:55 07:20 10:57 WBC (3.98-10.04) K/mm3 RBC (3.98-5.22) M/mm3 Hgb (11.2-15.7) gm/L Hct (34.1-44.9) % MCV (79.4-94.8) fl MCH (25.6-32.2) pg MCHC (32.2-35.5) g/dl RDW Std Deviation (36.4-46.3) fL Plt Count (182-369) K/mm3 MPV (9.4-12.3) fl Neut % (Auto) (34.0-71.1) % Lymph % (Auto) (19.3-51.7) % Dawson % (Auto) (4.7-12.5) % Eos % (Auto) (0.7-5.8) Baso % (Auto) (0.1-1.2) % Neut # (Auto) (1.56-6.13) K/mm3 Lymph # (Auto) (1.18-3.74) K/mm3 Dawson # (Auto) (0.24-0.36) K/mm3 Eos # (Auto) (0.04-0.36) K/mm3 Baso # (Auto) (0.01-0.08) K/mm3 Sodium 151 H (136-145) mEq/L Potassium 4.4 (3.5-5.1) mEq/L Chloride 116 H (98-107) mEq/L Carbon Dioxide 23 (21-32) mEq/L Anion Gap 16.4 H (5-15) BUN 112 H D (7-18) mg/dL Creatinine 2.9 H (0.55-1.02) mg/dL Est Cr Clr Drug Dosing 18.21 mL/min Estimated GFR (MDRD) 16 (>60) mL/min BUN/Creatinine Ratio 38.6 H (14-18) Glucose 217 H (80-115) mg/dL POC Glucose 227 H 279 H (80-115) mg/dL Calcium 8.7 (8.5-10.1) mg/dL Total Bilirubin 0.4 (0.2-1.0) mg/dL AST 18 (15-37) U/L ALT 20 (14-59) U/L Alkaline Phosphatase 81 (46-116) U/L Total Protein 6.4 (6.4-8.2) g/dl Albumin 2.8 L (3.4-5.0) g/dl Globulin 3.6 gm/dL Albumin/Globulin Ratio 0.8 L (1-2) MRSA (PCR) Result Diagrams: 10/29/18 05:55 10/29/18 05:55 - Problem List (1) Hypovolemia SNOMED Code(s): 31487875 ICD Code: E86.1 - HYPOVOLEMIA Status: Acute Priority: High Current Visit: Yes (2) Dehydration SNOMED Code(s): 23929550 ICD Code: E86.0 - DEHYDRATION Status: Acute Priority: High Current Visit: Yes (3) Acute renal failure SNOMED Code(s): 78614061 ICD Code: N17.9 - ACUTE KIDNEY FAILURE, UNSPECIFIED Status: Acute Priority: High Current Visit: Yes Qualifiers: Acute renal failure type: unspecified Qualified Code(s): N17.9 - Acute kidney failure, unspecified (4) HTN (hypertension) SNOMED Code(s): 33296593 ICD Code: I10 - ESSENTIAL (PRIMARY) HYPERTENSION Status: Acute Priority: High Current Visit: No Qualifiers: Hypertension type: unspecified Qualified Code(s): I10 - Essential (primary ) hypertension (5) Diabetes mellitus SNOMED Code(s): 58983991 ICD Code: E11.9 - TYPE 2 DIABETES MELLITUS WITHOUT COMPLICATIONS Status: Acute Current Visit: Yes Qualifiers: Diabetes mellitus type: type 2 Diabetes mellitus custodial insulin use: with custodial use Diabetes mellitus complication status: with hyperglycemia Qualified Code(s): E11.65 - Type 2 diabetes mellitus with hyperglycemia; Z79.4 - care home (current) use of insulin Problem List Initiated/Reviewed/Updated: Yes Orders Last 24hrs: Active Orders 24 hr Category Date Time Status Admission Status [Patient Status] [ADT] Routine ADT 10/28/18 21:50 Active Bedrest [RC] QSHIFT Care 10/29/18 07:30 Active Communication Order [RC] ROUTINE Care 10/29/18 07:30 Active EKG 12 Lead [EKG Documentation Completion] [RC] STAT Care 10/28/18 21:44 Active POC Glucose [Blood Glucose Check, Bedside] [RC] Care 10/29/18 07:48 Active QIDACANDBED Consult to Speech Language Pathology [[employer] Evaluation Cons 10/29/18 12:12 Active and Treatment] [CONS] Routine Pureed Diet [DIET] Diet 10/29/18 Breakfast Active Thickened Liquids [DIET] Diet 10/29/18 Breakfast Active Aspirin [Halfprin] Med 10/29/18 12:30 Ordered 81 mg PO DAILY Benazepril HCl [Lotensin] Med 10/30/18 09:00 Ordered 40 mg PO DAILY Cholecalciferol (Vitamin D3) [Vitamin D3] Med 10/30/18 09:00 Ordered 1,000 unit PO DAILY Clopidogrel [Plavix] Med 10/30/18 09:00 Ordered 75 mg PO DAILY Enoxaparin [Lovenox] Med 10/29/18 12:30 Ordered 40 mg SUBCUT Q24H Escitalopram Med 10/30/18 09:00 Ordered 10 mg PO DAILY Insulin Lispro [HumaLOG] Med 10/29/18 18:00 Ordered See Protocol SUBCUT Q6HR Oxybutynin [Oxybutynin ER] Med 10/30/18 09:00 Ordered 5 mg PO DAILY Sodium Chloride 0.9% [Normal Saline] 1,000 ml Med 10/28/18 23:45 Active IV ASDIRECTED Sodium Chloride 0.9% [Saline Flush] Med 10/28/18 20:17 Active 10 ml FLUSH ASDIRECTED PRN atorvaSTATin Med 10/29/18 12:30 Ordered 40 mg PO DAILY Peripheral IV Insertion Adult [OM.PC] Stat Oth 10/28/18 20:17 Ordered Code Status [Resuscitation Status] Routine Resus Stat 10/28/18 23:24 Ordered Medication Orders Aspirin (Halfprin) 81 mg PO DAILY [facility] Cholecalciferol (Vitamin D3) 1,000 units PO DAILY [facility]A Clopidogrel Bisulfate (Plavix) 75 mg PO DAILY [facility]A Enoxaparin Sodium (Lovenox) 40 mg SUBCUT Q24H [facility] Sodium Chloride (Normal Saline) 1,000 mls @ 150 mls/hr IV ASDIRECTED KAELA Last Admin: 10/29/18 06:57 Dose: 150 mls/hr Infusion: 10/29/18 06:56 Dose: 150 mls/hr Admin: 10/29/18 00:15 Dose: 150 mls/hr Insulin Human Lispro (Humalog) 0 unit SUBCUT Q6H KAELA; Protocol Non-Formulary Medication (Atorvastatin) 40 mg PO DAILY [facility]A Non-Formulary Medication (Benazepril Hcl [Lotensin]) 40 mg PO DAILY [facility] Non-Formulary Medication (Escitalopram) 10 mg PO DAILY [facility] Oxybutynin Chloride (Oxybutynin Er) 5 mg PO DAILY [facility] Sodium Chloride (Saline Flush) 10 ml FLUSH ASDIRECTED PRN PRN Reason: Keep Vein Open Last Admin: 10/28/18 20:43 Dose: 10 ml Assessment/Plan Comment:: 1. Speech eval. 2. IVF, serial BMPs. Replace eletrolytes as warranted. 3. Continue discussion of level of support, consider hospice. 4. SSI. 5. DVTP
[2018-10-29] MEDS ORDERED: Labetalol 100 MG/20 ML MDV IVPUSH PRN (12:42)
[2018-10-29] MEDS ORDERED: Insulin Lispro 100 Units/ML 3 ML Vial SUBCUT SCH (13:00)
[2018-10-29] MEDS: Aspirin 81 MG Tab.EC PO SCH (13:01)
[2018-10-29] MEDS: Rosuvastatin 10 MG Tab PO SCH (13:01)
[2018-10-29] MEDS: Enoxaparin 40 MG/0.4 ML Syringe SUBCUT SCH (13:01)
[2018-10-29] MEDS: Insulin Lispro 100 Units/ML 3 ML Vial SUBCUT SCH (17:51)
[2018-10-30] MEDS: Insulin Lispro 100 Units/ML 3 ML Vial SUBCUT SCH ×3 (00:30→11:16)
[2018-10-30] MEDS: Sodium Chloride 0.9% 1,000 ML IV SCH (04:46)
[2018-10-30] MEDS ORDERED: Citalopram 20 MG Tab PO SCH (09:00)
[2018-10-30] MEDS ORDERED: Cholecalciferol (Vitamin D3) 1,000 Unit Tab PO SCH (09:00)
[2018-10-30] MEDS ORDERED: Oxybutynin 5 MG Tab.ER PO SCH (09:00)
[2018-10-30] MEDS ORDERED: Clopidogrel 75 MG Tab PO SCH (09:00)
[2018-10-30] MEDS: Rosuvastatin 10 MG Tab PO SCH (10:08)
[2018-10-30] MEDS: Aspirin 81 MG Tab.EC PO SCH (10:08)
[2018-10-30] MEDS: Enoxaparin 40 MG/0.4 ML Syringe SUBCUT SCH (12:33)
--- NOTE | 2018-10-30 13:44 | PCM.DCSUM1 ---
Discharge Summary - Hospital Course HPI Initial Comments: 68 yo WF with recent h/o debilitating stroke brought to ED due to severe volume depletion, dehydration, very poor PO intake and weight loss. On arrival discussed with son and the patient the option of TF. The patient refused. Agreed to IVF and electrolytes replacement. Admitted for further treatment. Brief History: Patient was admitted and rehydrated with normal saline. Patient' s sodium level increased to 158 with some improvement in her BUN and creatinine. Anion gap also became worse at 17. Patient elected to have no further care including IV fluids, insulin, or medications. Diagnosis: Stroke: Yes Modified Chaffee Scale: Sev.Disablility Bedridden,Incont.&Require Constant Nrsg.Care/Attention Modified Chaffee Scale Score: 5 - Discharge Data Discharge Date: 10/30/18 Discharge Disposition: DC/Tfer to [facility] Condition: Serious - Patient Summary/Data Consults: Consultations 10/29/18 12:12 Consult to Speech Language Pathology [REWRITER Evaluation and Treatment] [CONS] Routine - Patient Instructions Diet: NPO Activity: Bedrest Driving: Do Not Drive Showering/Bathing: No Showering Other/Special Instructions: After discussion of the patient's condition with both her and her son Marcell, patient requested no further measures to keep her alive. I discussed with her IV fluids and other medical treatment which she refused. We also discussed hospice care, but at this time and they are not ready for it. She understands that without medication or IV fluids she will only have days to live. Patient states that she wants to go to [facility]. - Discharge Plan *PRESCRIPTION DRUG MONITORING PROGRAM REVIEWED*: Not Applicable *COPY OF PRESCRIPTION DRUG MONITORING REPORT IN PATIENT BRYAN: Not Applicable Other Amb Orders: Comfort Measures [OM.PC] Location: None Selected Oxygen Therapy Mode: Room Air Forms: ED Department Discharge Referrals: Chester Vuong MD [Physician] - (Follow up as need with your primary care provider. If you should decide to use hospice services you will need to contact your primary care provider for the referral.) - Discharge Summary/Plan Comment DC Time >30 min.: Yes Discharge Summary/Plan Comment: After discussion of the patient's condition with both her and her son Marcell, patient requested no further measures to keep her alive. I discussed with her IV fluids and other medical treatment which she refused. We also discussed hospice care, but at this time and they are not ready for it. She understands that without medication or IV fluids she will only have a few days to live. Patient states that she wants to go to [facility]. patient will be discharged to [facility] with comfort care. Patient and family are in agreement. - General Info Date of Service: 10/30/18 Admission Dx/Problem (Free Text: Admission Diagnosis/Problem Admission Diagnosis/Problem Dehydration Subjective Update: After discussion of the patient's condition with both her and her son Marcell, patient requested no further measures to keep her alive. I discussed with her IV fluids and other medical treatment which she refused. We also discussed hospice care, but at this time and they are not ready for it. She understands that without medication or IV fluids she will only have days to live. Patient states that she wants to go to [facility]. Functional Status: Reports: Pain Controlled - Review of Systems General: Reports: No Symptoms - Patient Data Vitals - Most Recent: Last Vital Signs Temp 97.3 F 10/30/18 03:14 Pulse 91 10/30/18 03:14 Resp 16 10/30/18 03:14 BP 159/81 H 10/30/18 03:14 Pulse Ox 96 10/30/18 03:14 Weight - Most Recent: 176 lb 8 oz I&O - Last 24 hours: Intake & Output 10/29/18 10/30/18 10/30/18 22:59 06:59 14:59 Intake Total 1950 2028 Balance 1950 2028 Lab Results - Last 24 hrs: Laboratory Results - last 24 hr 10/29/18 10/29/18 10/30/18 Range/Units 16:15 20:46 05:27 WBC (3.98-10.04) K/mm3 RBC (3.98-5.22) M/mm3 Hgb (11.2-15.7) gm/L Hct (34.1-44.9) % MCV (79.4-94.8) fl MCH (25.6-32.2) pg MCHC (32.2-35.5) g/dl RDW Std Deviation (36.4-46.3) fL Plt Count (182-369) K/mm3 MPV (9.4-12.3) fl Neut % (Auto) (34.0-71.1) % Lymph % (Auto) (19.3-51.7) % Knott % (Auto) (4.7-12.5) % Eos % (Auto) (0.7-5.8) Baso % (Auto) (0.1-1.2) % Neut # (Auto) (1.56-6.13) K/mm3 Lymph # (Auto) (1.18-3.74) K/mm3 Knott # (Auto) (0.24-0.36) K/mm3 Eos # (Auto) (0.04-0.36) K/mm3 Baso # (Auto) (0.01-0.08) K/mm3 Sodium (136-145) mEq/L Potassium (3.5-5.1) mEq/L Chloride (98-107) mEq/L Carbon Dioxide (21-32) mEq/L Anion Gap (5-15) BUN (7-18) mg/dL Creatinine (0.55-1.02) mg/dL Est Cr Clr Drug Dosing mL/min Estimated GFR (MDRD) (>60) mL/min BUN/Creatinine Ratio (14-18) Glucose (80-115) mg/dL POC Glucose 171 H 148 H 198 H (80-115) mg/dL Calcium (8.5-10.1) mg/dL Phosphorus (2.6-4.7) mg/dL Magnesium (1.8-2.4) mg/dl Total Bilirubin (0.2-1.0) mg/dL AST (15-37) U/L ALT (14-59) U/L Alkaline Phosphatase (46-116) U/L Total Protein (6.4-8.2) g/dl Albumin (3.4-5.0) g/dl Globulin gm/dL Albumin/Globulin Ratio (1-2) 10/30/18 10/30/18 10/30/18 Range/Units 06:10 06:32 06:32 WBC 11.98 H (3.98-10.04) K/mm3 RBC 4.10 (3.98-5.22) M/mm3 Hgb 12.4 (11.2-15.7) gm/L Hct 39.5 (34.1-44.9) % MCV 96.3 H (79.4-94.8) fl MCH 30.2 (25.6-32.2) pg MCHC 31.4 L (32.2-35.5) g/dl RDW Std Deviation 43.4 (36.4-46.3) fL Plt Count 175 L (182-369) K/mm3 MPV 12.2 (9.4-12.3) fl Neut % (Auto) 83.7 H (34.0-71.1) % Lymph % (Auto) 11.0 L (19.3-51.7) % Knott % (Auto) 4.3 L (4.7-12.5) % Eos % (Auto) 0.2 L (0.7-5.8) Baso % (Auto) 0.2 (0.1-1.2) % Neut # (Auto) 10.04 H (1.56-6.13) K/mm3 Lymph # (Auto) 1.32 (1.18-3.74) K/mm3 Knott # (Auto) 0.51 H (0.24-0.36) K/mm3 Eos # (Auto) 0.02 L (0.04-0.36) K/mm3 Baso # (Auto) 0.02 (0.01-0.08) K/mm3 Sodium 158 H (136-145) mEq/L Potassium 4.2 (3.5-5.1) mEq/L Chloride 122 H (98-107) mEq/L Carbon Dioxide 17 L (21-32) mEq/L Anion Gap 23.2 H (5-15) BUN 77 H D (7-18) mg/dL Creatinine 1.8 H (0.55-1.02) mg/dL Est Cr Clr Drug Dosing 29.34 mL/min Estimated GFR (MDRD) 28 (>60) mL/min BUN/Creatinine Ratio 42.8 H (14-18) Glucose 193 H (80-115) mg/dL POC Glucose (80-115) mg/dL Calcium 9.1 (8.5-10.1) mg/dL Phosphorus 4.1 (2.6-4.7) mg/dL Magnesium 2.2 (1.8-2.4) mg/dl Total Bilirubin 0.4 (0.2-1.0) mg/dL AST 66 H (15-37) U/L ALT 57 (14-59) U/L Alkaline Phosphatase 93 (46-116) U/L Total Protein 6.8 (6.4-8.2) g/dl Albumin 3.0 L (3.4-5.0) g/dl Globulin 3.8 gm/dL Albumin/Globulin Ratio 0.8 L (1-2) Med Orders - Current: Current Medications Aspirin (Halfprin) 81 mg PO DAILY [facility] Last Admin: 10/30/18 10:08 Dose: Not Given Benazepril HCl (Lotensin) 40 mg PO DAILY [facility] Last Admin: 10/30/18 10:20 Dose: Not Given Cholecalciferol (Vitamin D3) 1,000 units PO DAILY [facility] Last Admin: 10/30/18 10:21 Dose: Not Given Citalopram Hydrobromide (Celexa) 20 mg PO DAILY [facility] Last Admin: 10/30/18 10:08 Dose: Not Given Clopidogrel Bisulfate (Plavix) 75 mg PO DAILY [facility] Last Admin: 10/30/18 10:20 Dose: Not Given Enoxaparin Sodium (Lovenox) 40 mg SUBCUT Q24H [facility] Last Admin: 10/30/18 12:33 Dose: Not Given Labetalol HCl (Normodyne) 15 mg IVPUSH Q4H PRN PRN Reason: Hypertension Last Admin: 10/29/18 15:46 Dose: 15 mg Oxybutynin Chloride (Oxybutynin Er) 5 mg PO DAILY [facility] Last Admin: 10/30/18 10:20 Dose: Not Given Rosuvastatin Calcium (Crestor) 10 mg PO DAILY [facility] Last Admin: 10/30/18 10:08 Dose: Not Given Sodium Chloride (Saline Flush) 10 ml FLUSH ASDIRECTED PRN PRN Reason: Keep Vein Open Last Admin: 10/28/18 20:43 Dose: 10 ml Discontinued Medications Sodium Chloride (Normal Saline) 1,000 mls @ 999 mls/hr IV ONETIME [facility] Stop: 10/29/18 00:30 Last Admin: 10/28/18 20:42 Dose: 999 mls/hr Sodium Chloride (Normal Saline) 1,000 mls @ 150 mls/hr IV ASDIRECTED [facility] Last Admin: 10/30/18 04:46 Dose: 150 mls/hr Insulin Human Lispro (Humalog) 0 unit SUBCUT Q6H [facility]; Protocol Last Admin: 10/29/18 13:00 Dose: 6 units Insulin Human Lispro (Humalog) 0 unit SUBCUT Q6H [facility]; Protocol Last Admin: 10/30/18 11:16 Dose: Not Given - Exam General: Reports: Alert Neurological: Reports: Other (severe right-sided deficit. Patient was able to answer questions.) Psy/Mental Status: Reports: Alert
== END 2018-10-30 14:27 | DRG 683 ==
LOC: JD.ED 20:08 → JD.MS 21:50
PROVIDERS: ADMIT Internal Medicine; ATTEND Internal Medicine
DX: N17.9 Acute kidney failure, unspecified (principal); I69.351 Hemiplegia and hemiparesis following cerebral infarction affecting right dominant side; I13.0 Hypertensive heart and chronic kidney disease with heart failure and stage 1 through stage 4 chronic kidney disease, or unspecified chronic kidney disease; E86.0 Dehydration; I12.9 Hypertensive chronic kidney disease with stage 1 through stage 4 chronic kidney disease, or unspecified chronic kidney disease; N18.4 Chronic kidney disease, stage 4 (severe); E11.22 Type 2 diabetes mellitus with diabetic chronic kidney disease; E78.00 Pure hypercholesterolemia, unspecified; M19.90 Unspecified osteoarthritis, unspecified site; M81.0 Age-related osteoporosis without current pathological fracture; F32.9 Major depressive disorder, single episode, unspecified; I50.9 Heart failure, unspecified; E55.9 Vitamin D deficiency, unspecified; N39.3 Stress incontinence (female) (male); E78.5 Hyperlipidemia, unspecified; E86.9 Volume depletion, unspecified; H54.7 Unspecified visual loss; E86.1 Hypovolemia; E11.65 Type 2 diabetes mellitus with hyperglycemia; Z51.5 Encounter for palliative care; Z66 Do not resuscitate; Z79.02 Long term (current) use of antithrombotics/antiplatelets; Z79.82 Long term (current) use of aspirin; Z79.899 Other long term (current) drug therapy; Z87.440 Personal history of urinary (tract) infections; Z90.49 Acquired absence of other specified parts of digestive tract; Z90.710 Acquired absence of both cervix and uterus
CPT/HCPCS: 96360; 99284; J7040; 36415; 80053; 82962; 83735; 84100; 85025; 87641; 92610-GN; 93005; 93010; 99283; J1650; J1815-GY; J3490